=== PATIENT | female | born 1955 | race Caucasian/White ===

== ENCOUNTER → 2020-02-20 09:39 | Outpatient (BNVA) | payer MEDICARE, MEDICAID, SELFPAY | PROVIDERS: PCP Internal Medicine; Referring Provider Internal Medicine; Visit Provider Internal Medicine | DX: J44.9 Chronic obstructive pulmonary disease, unspecified (principal); Z79.899 Other long term (current) drug therapy; R09.02 Hypoxemia; Z87.891 Personal history of nicotine dependence; Z23 Encounter for immunization | CPT/HCPCS: 90471; 90686; 99212 ==

== ENCOUNTER 2020-05-21 | Outpatient (REF) | payer MEDICARE, MEDICAID, SELFPAY | END 2020-05-21 00:01 | disposition home or self-care (01) | LOC: HO.VC | PROVIDERS: Visit Provider Internal Medicine | DX: Z23 Encounter for immunization (principal) | CPT/HCPCS: 0011A ==

== ENCOUNTER 2020-06-17 08:01 | Outpatient (REF) | payer MEDICARE, SELFPAY ==
--- NOTE | ~2020-06-17 | XR_ITS ---
EXAMINATION: XR KNEE, RIGHT CLINICAL INFORMATION: Right knee effusion COMPARISON: None TECHNIQUE: Four views of the right knee. FINDINGS: Bone alignment is normal. No fracture or dislocation is seen. There may be periarticular osteopenia. Joint spaces are normal. There is a large joint effusion. Soft tissues are otherwise normal. XR/XR knee RT 3V IMPRESSION: Large joint effusion.
[2020-06-17 08:50] LABS: Hematocrit 43.6 % (37-47); Mean Corpuscular HGB Conc 32.1 g/dl (31.0-35.0); Mean Corpuscular Hemoglobin 31.4 pg (27.0-33.0); Mean Corpuscular Volume 97.8 fL (80-98); Platelet Count 243 X10*3/uL (160-400); Red Blood Count 4.46 X10*6/uL (4.20-5.50); Red Cell Distribution Width 12.3 % (11.0-16.0); White Blood Count 7.2 X10*3/uL (4.8-10.8)
[2020-06-17 09:21] LABS: Alanine Aminotransferase 15 U/L (0-31); Albumin Level 4.6 g/dL (3.5-5.0); Alkaline Phosphatase 114 U/L (39-117); Anion Gap 12 (12-20); Aspartate Amino Transferase 21 U/L (5-31); Bilirubin Direct 0.2 mg/dL (0.0-0.5); Bilirubin Total 0.5 mg/dL (0.0-1.0); Blood Urea Nitrogen 17 mg/dL (9-16); Calcium 9.3 mg/dL (8.4-10.2); Carbon Dioxide 33 mmol/L (22-29); Chloride 102 mmol/L (96-108); Cholesterol 229 mg/dL; Estimated Glomerular Filt Rate 59; Glucose Random 108 mg/dL (60-115); HDL Cholesterol 94 mg/dL; LDL Cholesterol Calculated 120 mg/dl; Potassium 4.4 mmol/L (3.3-5.1); Sodium 143 mmol/L (135-145); Triglycerides 76 mg/dL
[2020-06-17 09:43] LABS: Thyroid Stimulating Hormone 8.51 uIU/mL (0.32-4.0)
[2020-06-17 09:50] LABS: Folate 9.4 ng/mL (> or = 4.0); Vitamin B12 < 146 pg/mL (200-900)
== END 2020-06-17 08:02 | disposition home or self-care (01) ==
LOC: HO.LAB 08:01
PROVIDERS: PCP Internal Medicine; Visit Provider Internal Medicine
DX: M25.461 Effusion, right knee (principal); M25.462 Effusion, left knee; F19.90 Other psychoactive substance use, unspecified, uncomplicated; E03.9 Hypothyroidism, unspecified; F41.1 Generalized anxiety disorder
CPT/HCPCS: 36415; 73562; 80048; 80061; 80076; 82607; 82746; 84443; 85027

== ENCOUNTER 2020-06-18 | Outpatient (REF) | payer MEDICARE, MEDICAID, SELFPAY | END 2020-06-18 00:01 | disposition home or self-care (01) | LOC: HO.VC | PROVIDERS: Visit Provider Internal Medicine | DX: Z23 Encounter for immunization (principal) | CPT/HCPCS: 0012A ==

== ENCOUNTER → 2020-06-25 09:42 | Outpatient (BNVA) | payer MEDICARE, SELFPAY | PROVIDERS: PCP Internal Medicine; Visit Provider Internal Medicine | DX: J44.9 Chronic obstructive pulmonary disease, unspecified (principal); R09.02 Hypoxemia; Z79.51 Long term (current) use of inhaled steroids; Z87.891 Personal history of nicotine dependence | CPT/HCPCS: 99212 ==

== ENCOUNTER 2020-08-26 16:45 | Emergency (ER) | payer MEDICARE, SELFPAY ==
--- NOTE | ~2020-08-26 | XR_ITS ---
EXAMINATION: XR FOREARM, LEFT CLINICAL INFORMATION: Injury COMPARISON: None TECHNIQUE: AP and lateral views of the left forearm were obtained. FINDINGS: The bones and soft tissues are normal. No fracture. Imaged portions of the elbow and wrist are unremarkable. XR/XR forearm LT 2V IMPRESSION: Normal left forearm.
[2020-08-26 17:03] VITALS: BP 151/77; PULSE 92; RESP 18; TEMP 36.6; O2SAT 98; BMI 29.2
[2020-08-26] MEDS: Diphth,Pertus(ACell),Tet Adult 0.5 ML SYRINGE IM (18:18)
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
== END 2020-08-26 18:49 | disposition home or self-care (01) ==
PROVIDERS: Emergency Provider Internal Medicine; PCP Internal Medicine
DX: S40.812A Abrasion of left upper arm, initial encounter (principal); V18.3XXA Person boarding or alighting a pedal cycle injured in noncollision transport accident, initial encounter; Y93.55 Activity, bike riding; Y92.480 Sidewalk as the place of occurrence of the external cause; Y99.9 Unspecified external cause status
CPT/HCPCS: 73090; 90471; 90715; 99284

== ENCOUNTER → 2020-09-30 09:37 | Outpatient (BNVA) | payer MEDICARE, SELFPAY | PROVIDERS: PCP Internal Medicine; Visit Provider Internal Medicine | DX: J44.9 Chronic obstructive pulmonary disease, unspecified (principal); R09.02 Hypoxemia | CPT/HCPCS: 99212 ==

== ENCOUNTER 2021-01-06 07:43 | Outpatient (REF) | payer MEDICARE, SELFPAY ==
[2021-01-06 08:51] LABS: Hematocrit 43.2 % (37-47); Hemoglobin 13.9 g/dl (12.0-16.0); Mean Corpuscular HGB Conc 32.2 g/dl (31.0-35.0); Mean Corpuscular Volume 96.2 fL (80-98); Mean Platelet Volume 11.8 fL (9.4-12.3); Platelet Count 208 X10*3/uL (160-400); Red Blood Count 4.49 X10*6/uL (4.20-5.50); Red Cell Distribution Width 13.1 % (11.0-16.0); White Blood Count 6.2 X10*3/uL (4.8-10.8)
[2021-01-06 09:05] LABS: Alanine Aminotransferase 16 U/L (0-31); Albumin Level 4.4 g/dL (3.5-5.0); Alkaline Phosphatase 103 U/L (39-117); Anion Gap 11 (12-20); Aspartate Amino Transferase 17 U/L (5-31); Bilirubin Direct 0.2 mg/dL (0.0-0.5); Bilirubin Total 0.5 mg/dL (0.0-1.0); Blood Urea Nitrogen 14 mg/dL (9-16); Calcium 9.1 mg/dL (8.4-10.2); Carbon Dioxide 32 mmol/L (22-29); Chloride 104 mmol/L (96-108); Cholesterol 210 mg/dL; Estimated Glomerular Filt Rate > 60; Glucose Random 94 mg/dL (60-115); HDL Cholesterol 75 mg/dL; LDL Cholesterol Calculated 120 mg/dl; Potassium 4.2 mmol/L (3.3-5.1); Sodium 143 mmol/L (135-145); Total Protein 7.4 g/dL (6.5-8.0); Triglycerides 76 mg/dL
[2021-01-06 10:56] LABS: Appearance Urine CLEAR; Color Urine YELLOW; Glucose Urine UA NEG (NEG); Leukocyte Esterase Urine NEG (NEG); Nitrite Urine NEG (NEG); Specific Gravity - Urine 1.015 (1.005-1.025); Urine Blood NEG (NEG); Urine Ketones NEG (NEG); Urine Protein NEG (NEG-TRACE)
[2021-01-11 13:00] LABS: Vitamin D 25-OH, D2 <4 ng/mL; Vitamin D 25-OH, D3 13 ng/mL; Vitamin D 25-OH, Total 13 ng/mL (30-100)
== END 2021-01-06 07:44 | disposition home or self-care (01) ==
LOC: HO.LAB 07:43
PROVIDERS: PCP Internal Medicine; Visit Provider Internal Medicine
DX: J44.9 Chronic obstructive pulmonary disease, unspecified (principal); R09.02 Hypoxemia; E03.8 Other specified hypothyroidism; F19.90 Other psychoactive substance use, unspecified, uncomplicated
CPT/HCPCS: 36415; 80048; 80061; 80076; 81003; 82306; 84443; 85027; 99212

== ENCOUNTER → 2021-05-07 09:21 | Outpatient (BNVA) | payer MEDICARE, SELFPAY | PROVIDERS: PCP Internal Medicine; Visit Provider Internal Medicine | DX: J44.9 Chronic obstructive pulmonary disease, unspecified (principal); R09.02 Hypoxemia | CPT/HCPCS: 99212 ==

== ENCOUNTER → 2021-05-21 13:00 | Outpatient (BNVA) | payer MEDICARE, SELFPAY | PROVIDERS: PCP Internal Medicine; Visit Provider Internal Medicine | DX: J44.1 Chronic obstructive pulmonary disease with (acute) exacerbation (principal) | CPT/HCPCS: 99212 ==

== ENCOUNTER 2021-08-16 08:22 | Emergency (ER) | payer MEDICARE, SELFPAY ==
--- NOTE | ~2021-08-16 | XR_ITS ---
EXAMINATION: XR CHEST CLINICAL INFORMATION: Dyspnea. COMPARISON: 05/12/2019 chest radiographs. TECHNIQUE: 2 views of the chest were obtained. FINDINGS: The lungs are clear. There are no pleural effusions. The heart and mediastinal structures are unremarkable. Mild thoracolumbar dextro scoliosis is noted. XR/XR chest 2V IMPRESSION: No acute cardiopulmonary process.
[2021-08-16 08:35] VITALS: BP 143/94; PULSE 84; RESP 24; TEMP 36.6; O2SAT 94; BMI 30.1
[2021-08-16 08:51] LABS: MANUAL DIFF FLAG NO
[2021-08-16 08:52] LABS: Basophils Absolute Auto 0.1 X10*3/uL (0.0-0.2); Basophils Percent Auto 0.7 % (0-2); Eosinophils Absolute Auto 0.4 X10*3/uL (0.0-0.4); Eosinophils Percent Auto 4.8 % (0-4); Hemoglobin 13.3 g/dl (12.0-16.0); Imm Gran Abs Auto 0.01 X10*3/uL (0.00-0.03); Imm Gran Pct Auto 0.1 % (0.0-0.4); Lymphocytes Absolute Auto 1.9 X10*3/uL (1.2-4.9); Lymphocytes Percent Auto 25.7 % (20-40); Mean Corpuscular HGB Conc 31.7 g/dl (31.0-35.0); Mean Corpuscular Hemoglobin 30.6 pg (27.0-33.0); Mean Corpuscular Volume 96.8 fL (80.0-98.0); Mean Platelet Volume 11.3 fL (9.4-12.3); Monocytes Absolute Auto 0.4 X10*3/uL (0.1-1.2); Monocytes Percent Auto 5.3 % (2-11); Neutrophils Absolute Auto 4.8 x10*3/uL (2.0-8.3); Neutrophils Percent Auto 63.4 % (45-73); Platelet Count 182 X10*3/uL (160-400); Red Blood Count 4.34 X10*6/uL (4.20-5.50); Red Cell Distribution Width 12.8 % (11.0-16.0); White Blood Count 7.5 X10*3/uL (4.8-10.8)
[2021-08-16 09:08] LABS: Anion Gap 12 (12-20); Blood Urea Nitrogen 20 mg/dL (9-16); Calcium 9.9 mg/dL (8.4-10.2); Carbon Dioxide 30 mmol/L (22-29); Chloride 106 mmol/L (96-108); Creatinine Clr Calc Pharmacy 69.7; Estimated Glomerular Filt Rate > 60; Glucose Random 108 mg/dL (60-115); Potassium 4.5 mmol/L (3.3-5.1); Sodium 143 mmol/L (135-145)
--- NOTE | 2021-08-16 11:47 | ECG_ITS ---
Test Reason : DYSPNEA Blood Pressure : / mmHG Vent. Rate : 082 BPM Atrial Rate : 082 BPM P-R Int : 120 ms QRS Dur : 074 ms QT Int : 392 ms P-R-T Axes : 040 041 030 degrees QTc Int : 457 ms Sinus rhythm with sinus arrhythmia with occasional Premature ventricular complexes Otherwise normal ECG When compared with ECG of 12-MAY-2019 10:47, Premature ventricular complexes are now Present T wave inversion no longer evident in Anterior leads Referred By: Ponce Escalante Electronically Signed By:Uche Stovall
--- NOTE | 2021-08-16 11:50 | ED_ITS ---
HPI - General Adult General Chief complaint: Dyspnea <MERI Candelaria Last Filed: 08/16/21 21:58> Stated complaint: dif breathing <MERI Candelaria Last Filed: 08/16/21 21:58> Time Seen by Provider: 08/16/21 11:41 <MERI Candelaria Last Filed: 08/16/21 21:58> Source: patient <MERI Candelaria Last Filed: 08/16/21 21:58> Mode of arrival: ambulatory <MERI Candelaria Last Filed: 08/16/21 21:58> Limitations: no limitations <MERI Candelaria Last Filed: 08/16/21 21:58> History of Present Illness HPI narrative: 65-year-old female with history of COPD presents to ED for shortness of breath on exertion for 1 week. patient states while walking around the house she had 2 episodes of shortness of breath while walking around the house ( without her oxygen nasal canuli). Patient states using updraft and still having wheezing. Patient denies any leg swelling, calf pain, pleuritic chest pain, or coughing up blood. Patient admits to chest tightness with wheezing and coughing. Patient unsure of any COVID or flu exposure. <MERI Candelaria Last Filed: 08/16/21 21:58> Related Data Home medications: Home Medications Medication Instructions Recorded Confirmed albuterol sulfate 90 mcg/actuation 2 puff PO Q6H PRN 01/14/20 08/16/21 aerosol inhaler buprenorphine 8 mg-naloxone 2 mg 1 film SUBLINGUAL BID 01/14/20 08/16/21 sublingual film umeclidinium 62.5 mcg/actuation 1 inh INHALATION DAILY 02/20/20 08/16/21 blister powder for inhalation (Incruse Ellipta) nicotine (polacrilex) 4 mg gum 4 mg BUCCAL Q2H PRN 08/16/21 08/16/21 Previous Rx's Medication Instructions Recorded thiamine HCl (vitamin B1) 50 mg 100 mg PO DAILY #171 tab 09/17/20 tablet amlodipine 2.5 mg tablet 2.5 mg PO DAILY #90 tab 11/01/20 folic acid 1 mg tablet 1 mg PO DAILY #90 tab 04/30/21 cyanocobalamin (vitamin B-12) 1,000 mcg IM QWEEK #10 ml 05/10/21 1,000 mcg/mL injection solution gabapentin 100 mg capsule 100 mg PO TID #270 cap 05/10/21 cholecalciferol (vitamin D3) 1,250 1,250 mcg PO QWEEK #4 cap 06/29/21 mcg (50,000 unit) capsule levothyroxine 125 mcg capsule 125 mcg PO DAILY #90 cap 06/29/21 fluticasone 250 mcg-salmeterol 50 1 ea PO BID #180 cap 07/01/21 mcg/dose blistr powdr for inhalation (Wixela Inhub) furosemide 20 mg tablet 20 mg PO DAILY #90 tab 07/01/21 citalopram 20 mg tablet 20 mg PO DAILY #60 tab 07/10/21 azithromycin 250 mg tablet See Rx Instructions .ROUTE 08/16/21 .COMPLEX #6 tab prednisone 20 mg tablet 40 mg PO DAILY 5 Days #10 tab 08/16/21 <MERI Candelaria - Last Filed: 08/16/21 21:58> Allergies/adverse reactions: Allergies Allergy/AdvReac Type Severity Reaction Status Date / Time duloxetine Allergy Intermediate upset Verified 07/19/21 16:50 stomach <MERI Candelaria - Last Filed: 08/16/21 21:58> Review of Systems Review of Systems: Chest tightness coughing, and wheezing <MERI Candelaria - Last Filed: 08/16/21 21:58> Yes all other systems are reviewed and are negative <MERI Candelaria - Last Filed: 08/16/21 21:58> [facility] Past Medical History Medical History: Medical History (Updated 08/17/21 @ 00:00 by Tiffanie Goodwin) Acquired hypothyroidism COPD (chronic obstructive pulmonary disease) COPD (chronic obstructive pulmonary disease) COPD exacerbation Generalized anxiety disorder Hypoxemia Hypoxemia Substance use disorder <MERI Candelaria - Last Filed: 08/16/21 21:58> Surgical History: Surgical History History of hip replacement <MERI Candelaria - Last Filed: 08/16/21 21:58> Family History Family History: Family History Father No problems noted. Mother No problems noted. Other Mental health disorder Substance use disorder <MERI Candelaria Last Filed: 08/16/21 21:58> Social History Social History: Social History Housing: House Alcohol intake: never Patient Tobacco Use Status: Former Tobacco user Quit Date: 2016 e-Cigarette/Vaping Use: Never Used Second Hand Smoke Exposure: No Advance Directives: Yes Advance Directives Information Provided: Yes Advance Directives on File: No service: No Current occupational status: retired Cognitive needs: No Hearing needs: Yes (hearing aides) Vision needs: Yes (Glasses) <MERI Candelaria Last Filed: 08/16/21 21:58> Physical Exam ED Vital Signs: Vital Signs - 24 hr 08/16/21 08:35 08/16/21 12:00 08/16/21 13:29 Temperature 97.9 F 97.7 F Pulse Rate 84 78 Respiratory Rate 24 H 14 Blood Pressure 143/94 H 163/91 H Pulse Oximetry 94 99 89 L BMI result Body Mass Index 30.1 <MERI Candelaria Last Filed: 08/16/21 21:58> Const General: cooperative, healthy appearing, comfortable, no acute distress, well developed, alert, awake and Physically active <MERI Candelaria Last Filed: 08/16/21 21:58> Orientation/consciousness: patient oriented x3 <MERI Candelaria Last Filed: 08/16/21 21:58> HENMT Head: Yes normal to inspection, Yes No palpable skull fracture present, Yes normocephalic, Yes atraumatic and No abrasion <MERI Candelaria Last Filed: 08/16/21 21:58> Eyes General: appearance normal, both eyes and all related structures <MERI Candelaria Last Filed: 08/16/21 21:58> Neck Neck: Yes normal visual inspection, Yes full ROM, Yes no lymphadenopathy, Yes no meningeal signs, Yes trachea midline, Yes supple, No anterior neck swelling and No tender <MERI Candelaria Last Filed: 08/16/21 21:58> Chest Chest palpation & inspection: normal inspection of the chest and normal palpation of entire chest wall <MERI Candelaria Tripp Last Filed: 08/16/21 21:58> Resp Effort & Inspection: normal respiratory effort and able to speak in complete sentences <MERI Candelaria Last Filed: 08/16/21 21:58> Auscultation: wheezes expiratory wheezes ( diffuse) <MERI Candelaria Last Filed: 08/16/21 21:58> Cardio Jugular venous distension: no JVD <MERI Candelaria Last Filed: 08/16/21 21:58> Heart sounds: S1 normal heart sound present and S2 normal heart sound present <MERI Candelaria Last Filed: 08/16/21 21:58> GI Inspection: Yes normal to inspection <MERI Candelaria Last Filed: 08/16/21 21:58> Palpation (GI): Soft to palpation, not firm, nontender, no guarding and not rigid <MERI Candelaria Last Filed: 08/16/21 21:58> General: No CVA tenderness and Yes no CVA tenderness <MERI Candelaria Last Filed: 08/16/21 21:58> Back/Spine/Pelvis Back: no CVA tenderness, No CVA tenderness and No back tenderness <MERI Candelaria Last Filed: 08/16/21 21:58> Skin General skin exam: no rashes or lesions noted and elasticity normal <MERI Candelaria Last Filed: 08/16/21 21:58> Neuro General: patient oriented x3, gait normal, no meningeal signs and CN's II-XI intact bilaterally <MERI Candelaria Last Filed: 08/16/21 21:58> Cranial nerves: Yes CN's II-XII intact bilaterally <MERI Candelaria Last Filed: 08/16/21 21:58> Extrem Other: lower extremities negative for swelling, pitting edema, or calf tenderness. <MERI Candelaria Last Filed: 08/16/21 21:58> General: Yes normal to inspection and Yes full ROM <MERI Candelaria Last Filed: 08/16/21 21:58> Psych Appearance: grossly normal, well kempt and not disheveled <MERI Candelaria - Last Filed: 08/16/21 21:58> Course Course Course Narrative: Initial labs and chest x-ray came back normal. Lungs have diffuse wheezing. Will add a cardiac evaluation and give albuterol, Solu-Medrol, and magnesium. <MERI Candelaria - Last Filed: 08/16/21 21:58> Reevaluation(s) Reevaluation #1: patient at rest O2 saturation of 94%. on ambulation with portable oxygen 2 L patient O2 saturation dropped to 89%. Wheezing improved but still present. EKG negative STEMI. First troponin negative. Spoke with hospitalist for possible admission for COPD. Hospitalist will come and evaluate patient. <MERI Candelaria - Last Filed: 08/16/21 21:58> Time: 14:15 <MERI Candelaria - Last Filed: 08/16/21 21:58> Reevaluation #2: patient sitting comfortably in bed and laughing with sister. Patient evaluated by hospitalist Betty High ( who spoke with her attendant Dr. Brooks) who states patient can be discharged with steroids. upon re-evaluation patient states her normal O2 sat on oxygen is 93- 94% at rest, and at times ambulation normal can be 88% on room air. Patient with COPD O2 saturation usually rang between 87-94. Patient informed not to increase oxygen over 2 L this can lead to Knowking of her CO2. Not suspecting PE. Patient denies any pleurisy, leg pain, calf pain, coughing up blood, recent long travel, estrogen hormonal use, recent surgery, recent trauma, or pmh of dVT/PE.. Patient has no risk factors for a PE. ABG was ordered by HOspitalist betty High. ABG was reviewed by myself and Dr. Hussein supervising attending in the ER. He states patient is ABG is typical for COPD patient. Dr. Stringer Hospitalist Attendant made aware of plan. patient discharged with steroids. Patient informed to return to the ED immediately if she has worsening shortness of breath coughing up blood, leg swelling, calf pain, chest pain on inspiration, fever, chills, we akness, dizziness, syncope chest pain, inability speaking full sentences, or any other concerning symptoms. She is educated on signs of myocardial infarction, PE, hypoxia, respiratory failure, and COPD exacerbation. on monitor air O2 saturation 95% on 2 Liters. hospitalist Betty espitia recommends discharging patient with prednisone and azithromycin. <MERI Candelaria - Last Filed: 08/16/21 21:58> Time: 16:46 <MERI Candelaria - Last Filed: 08/16/21 21:58> Medical Decision Making MDM Narrative Medical decision making narrative: COPD <MERI Candelaria - Last Filed: 08/16/21 21:58> Lab Data Result diagrams: : 08/16/21 08:47 08/16/21 08:47 <MERI Candelaria - Last Filed: 08/16/21 21:58> Labs: Lab Results 08/16/21 08/16/21 08/16/21 Range/Units 08:47 08:47 12:12 WBC 7.5 (4.8-10.8) X10*3/uL RBC 4.34 (4.20-5.50) X10*6/uL Hgb 13.3 (12.0-16.0) g/dl Hct 42.0 (37.0-47.0) % MCV 96.8 (80.0-98.0) fL MCH 30.6 (27.0-33.0) pg MCHC 31.7 (31.0-35.0) g/dl RDW 12.8 (11.0-16.0) % Plt Count 182 (160-400) X10*3/uL MPV 11.3 (9.4-12.3) fL Immature Gran % (Auto) 0.1 (0.0-0.4) % Neut % (Auto) 63.4 (45-73) % Lymph % (Auto) 25.7 (20-40) % [place] % (Auto) 5.3 (2-11) % Eos % (Auto) 4.8 H (0-4) % Baso % (Auto) 0.7 (0-2) % Lymph # (Auto) 1.9 (1.2-4.9) X10*3/uL Livingston # (Auto) 0.4 (0.1-1.2) X10*3/uL Eos # (Auto) 0.4 (0.0-0.4) X10*3/uL Baso # (Auto) 0.1 (0.0-0.2) X10*3/uL Abs Immat Gran (auto) 0.01 (0.00-0.03) X10*3/uL Absolute Neuts (auto) 4.8 (2.0-8.3) x10*3/uL Absolute Nucleated RBC 0.000 (0.0-0.012) X10*3/uL Nucleated RBC % (auto) 0.0 (0.0-0.2) /100WBC PT (9.9-13.0) SEC INR (0.9-1.1) APTT (24.1-38.0) SEC O2 Saturation % ABG pH at Pt Temp (7.35-7.45) ABG pCO2 at Pt Temp (32-45) mmHg ABG pO2 at Pt Temp (83-108) mmHg ABG HCO3 (22-26) mmol/L ABG Base Excess (Actual) mmol/L Sodium 143 (135-145) mmol/L Potassium 4.5 (3.3-5.1) mmol/L Chloride 106 (96-108) mmol/L Carbon Dioxide 30 H (22-29) mmol/L Anion Gap 12 (12-20) BUN 20 H (9-16) mg/dL Creatinine 0.78 (0.5-1.4) mg/dL Estim Creat Clear Calc 69.7 Estimated GFR > 60 Random Glucose 108 (60-115) mg/dL Lactic Acid 0.9 (0.5-2.0) mmol/L Calcium 9.9 D (8.4-10.2) mg/dL Troponin I High Sens (<3.5-17.0) ng/L B-Natriuretic Peptide (<100) pg/mL COVID-19 (ADAM) (Negative) COVID-19 Clin Com Influenza Type A (MARLON) (Negative) Influenza Type B (MARLON) (Negative) Influenza A & B Note 08/16/21 08/16/21 08/16/21 Range/Units 12:13 12:14 12:14 WBC (4.8-10.8) X10*3/uL RBC (4.20-5.50) X10*6/uL Hgb (12.0-16.0) g/dl Hct (37.0-47.0) % MCV (80.0-98.0) fL MCH (27.0-33.0) pg MCHC (31.0-35.0) g/dl RDW (11.0-16.0) % Plt Count (160-400) X10*3/uL MPV (9.4-12.3) fL Immature Gran % (Auto) (0.0-0.4) % Neut % (Auto) (45-73) % Lymph % (Auto) (20-40) % Livingston % (Auto) (2-11) % Eos % (Auto) (0-4) % Baso % (Auto) (0-2) % Lymph # (Auto) (1.2-4.9) X10*3/uL Livingston # (Auto) (0.1-1.2) X10*3/uL Eos # (Auto) (0.0-0.4) X10*3/uL Baso # (Auto) (0.0-0.2) X10*3/uL Abs Immat Gran (auto) (0.00-0.03) X10*3/uL Absolute Neuts (auto) (2.0-8.3) x10*3/uL Absolute Nucleated RBC (0.0-0.012) X10*3/uL Nucleated RBC % (auto) (0.0-0.2) /100WBC PT 11.7 (9.9-13.0) SEC INR 1.0 (0.9-1.1) APTT 31.0 (24.1-38.0) SEC O2 Saturation % ABG pH at Pt Temp (7.35-7.45) ABG pCO2 at Pt Temp (32-45) mmHg ABG pO2 at Pt Temp (83-108) mmHg ABG HCO3 (22-26) mmol/L ABG Base Excess (Actual) mmol/L Sodium (135-145) mmol/L Potassium (3.3-5.1) mmol/L Chloride (96-108) mmol/L Carbon Dioxide (22-29) mmol/L Anion Gap (12-20) BUN (9-16) mg/dL Creatinine (0.5-1.4) mg/dL Estim Creat Clear Calc Estimated GFR Random Glucose (60-115) mg/dL Lactic Acid (0.5-2.0) mmol/L Calcium (8.4-10.2) mg/dL Troponin I High Sens 5.0 (<3.5-17.0) ng/L B-Natriuretic Peptide 109 H (<100) pg/mL COVID-19 (ADAM) (Negative) COVID-19 Clin Com Influenza Type A (MARLON) Negative (Negative) Influenza Type B (MARLON) Negative (Negative) Influenza A & B Note See Note 08/16/21 08/16/21 08/16/21 Range/Units 12:14 14:55 15:02 WBC (4.8-10.8) X10*3/uL RBC (4.20-5.50) X10*6/uL Hgb (12.0-16.0) g/dl Hct (37.0-47.0) % MCV (80.0-98.0) fL MCH (27.0-33.0) pg MCHC (31.0-35.0) g/dl RDW (11.0-16.0) % Plt Count (160-400) X10*3/uL MPV (9.4-12.3) fL Immature Gran % (Auto) (0.0-0.4) % Neut % (Auto) (45-73) % Lymph % (Auto) (20-40) % Livingston % (Auto) (2-11) % Eos % (Auto) (0-4) % Baso % (Auto) (0-2) % Lymph # (Auto) (1.2-4.9) X10*3/uL Livingston # (Auto) (0.1-1.2) X10*3/uL Eos # (Auto) (0.0-0.4) X10*3/uL Baso # (Auto) (0.0-0.2) X10*3/uL Abs Immat Gran (auto) (0.00-0.03) X10*3/uL Absolute Neuts (auto) (2.0-8.3) x10*3/uL Absolute Nucleated RBC (0.0-0.012) X10*3/uL Nucleated RBC % (auto) (0.0-0.2) /100WBC PT (9.9-13.0) SEC INR (0.9-1.1) APTT (24.1-38.0) SEC O2 Saturation 88.0 % ABG pH at Pt Temp 7.40 (7.35-7.45) ABG pCO2 at Pt Temp 54 H (32-45) mmHg ABG pO2 at Pt Temp 58 L (83-108) mmHg ABG HCO3 34 H (22-26) mmol/L ABG Base Excess (Actual) 7.7 mmol/L Sodium (135-145) mmol/L Potassium (3.3-5.1) mmol/L Chloride (96-108) mmol/L Carbon Dioxide (22-29) mmol/L Anion Gap (12-20) BUN (9-16) mg/dL Creatinine (0.5-1.4) mg/dL Estim Creat Clear Calc Estimated GFR Random Glucose (60-115) mg/dL Lactic Acid (0.5-2.0) mmol/L Calcium (8.4-10.2) mg/dL Troponin I High Sens 6.2 (<3.5-17.0) ng/L B-Natriuretic Peptide (<100) pg/mL COVID-19 (ADAM) Negative (Negative) COVID-19 Clin Com See Note Influenza Type A (MARLON) (Negative) Influenza Type B (MARLON) (Negative) Influenza A & B Note <MERI Candelaria - Last Filed: 08/16/21 21:58> ECG Data Interpretation: Sinus rhythm. Ventricular rate 82. Pr interval 120. QRS 70. QTC 457. Negative STEMI <MERI Candelaria - Last Filed: 08/16/21 21:58> Discharge Plan Discharge Clinical Impression: COPD (chronic obstructive pulmonary disease) <MERI Candelaria Last Filed: 08/16/21 21:58> Patient Disposition: Home, Self-Care <MERI Candelaria - Last Filed: 08/16/21 21:58> Instructions: COPD (Chronic Obstructive Pulmonary Disease) (ED) <MERI Candelaria Last Filed: 08/16/21 21:58> Additional Instructions: return to the ED for shortness of breath, coughing up blood, chest pain, inability to speak in full sentences, leg swelling, calf pain, chest pain on inspiration, dizziness, weakness, or any other concerning symptoms. recommend using the oxygen at all times. do not walk around without your oxygen. Use nebulizer as needed. You will be discharged with steroids. please follow-up primary care provider. <MERI Candelaria - Last Filed: 08/16/21 21:58> Prescriptions: New prednisone 20 mg tablet 40 mg PO DAILY 5 Days Qty: 10 0RF azithromycin 250 mg tablet See Rx Instructions .ROUTE .COMPLEX Qty: 6 0RF Rx Instructions: For 250 mg dose pack: take 500 mg today (day 1), then 250 mg for 4 days (days 2-5) No Action thiamine HCl (vitamin B1) 50 mg tablet 100 mg PO DAILY Qty: 171 1RF amlodipine 2.5 mg tablet 2.5 mg PO DAILY Qty: 90 0RF folic acid 1 mg tablet 1 mg PO DAILY Qty: 90 1RF cyanocobalamin (vitamin B-12) 1,000 mcg/mL solution 1,000 mcg IM QWEEK Qty: 10 1RF Rx Instructions: next dose 08/27 gabapentin 100 mg capsule 100 mg PO TID Qty: 270 1RF cholecalciferol (vitamin D3) 1,250 mcg (50,000 unit) capsule 1,250 mcg PO QWEEK Qty: 4 3RF levothyroxine 125 mcg capsule 125 mcg PO DAILY Qty: 90 0RF fluticasone propion-salmeterol [Wixela Inhub] 250-50 mcg/dose blister with device 1 ea PO BID Qty: 180 1RF furosemide 20 mg tablet 20 mg PO DAILY Qty: 90 1RF citalopram 20 mg tablet 20 mg PO DAILY Qty: 60 0RF nicotine (polacrilex) 4 mg Gum 4 mg BUCCAL Q2H PRN (Reason: Smoking Cessation) 0RF albuterol sulfate 90 mcg/actuation HFA aerosol inhaler 2 puff PO Q6H PRN (Reason: Shortness Of Breath) 0RF buprenorphine-naloxone 8-2 mg film 1 film sublingual BID 0RF Incruse Ellipta 62.5 mcg/actuation blister with device 1 inh inhalation DAILY 0RF <MERI Candelaria - Last Filed: 08/16/21 21:58> Interventions: ED Discharge Assessment Last Done: 08/16/21 17:15 <MERI Candelaria - Last Filed: 08/16/21 21:58> Discharge Date/Time: 08/16/21 17:16 <MERI Candelaria - Last Filed: 08/16/21 21:58> Print Language: Korean <MERI Candelaria - Last Filed: 08/16/21 21:58>
[2021-08-16 12:00] VITALS: BP 163/91; PULSE 78; RESP 14; RESP 18; TEMP 36.5; O2SAT 98; O2SAT 99
[2021-08-16] MEDS: Albuterol/Iprat 2.5/0.5MG 3 ML AMPUL.NEB INHALE (12:00)
[2021-08-16] MEDS: Magnesium Sulfate/H2O 2 GM/50 ML PIGGYBACK IV (12:18)
[2021-08-16] MEDS: methylPREDNISolone Sod Succ 125 MG/2 ML VIAL IVPUSH (12:18)
[2021-08-16 12:34] LABS: Prothrombin Time 11.7 SEC (9.9-13.0)
[2021-08-16 12:40] LABS: Lactic Acid 0.9 mmol/L (0.5-2.0)
[2021-08-16 12:44] LABS: COVID-19 Test Negative (Negative); IDNOW Serial# 08D9AD1C; Influenza A Negative (Negative); Influenza B2 Negative (Negative)
[2021-08-16 12:49] LABS: B Type Natriuretic Peptide 109 pg/mL (<100)
[2021-08-16 13:29] VITALS: O2SAT 89
[2021-08-16 14:42] VITALS: O2SAT 89
[2021-08-16 15:04] LABS: ABG Base Excess 7.7 mmol/L; ABG HCO3 34 mmol/L (22-26); ABG pCO2 54 mmHg (32-45); ABG pO2 58 mmHg (83-108)
[2021-08-16 15:28] LABS: Troponin-I High Sensitivity 6.2 ng/L (<3.5-17.0)
--- NOTE | 2021-08-16 16:29 | PHA.MEDREC ---
Pharmacy Consult ? Medication Reconciliation Pharmacy has completed the medication reconciliation.
[2021-08-16 17:11] LABS: ABG Refer to POC result
== END 2021-08-16 17:16 | disposition home or self-care (01) ==
PROVIDERS: Nurse Practitioner Acute Care; Physician Assistant; Emergency Provider Emergency Medicine; PCP Internal Medicine
DX: J44.9 Chronic obstructive pulmonary disease, unspecified (principal); R06.02 Shortness of breath; Z20.822 Contact with and (suspected) exposure to COVID-19
CPT/HCPCS: 36415; 71046; 80048; 82803; 83605; 83880; 84484; 85025; 85610; 85730; 87040; 87502; 87635; 93005; 94640; 96365; 96366; 96375; 99284; J2930; J3475

== ENCOUNTER → 2021-08-24 09:31 | Outpatient (BNVA) | payer MEDICARE, SELFPAY | PROVIDERS: PCP Internal Medicine; Visit Provider Internal Medicine | DX: J44.1 Chronic obstructive pulmonary disease with (acute) exacerbation (principal); R09.02 Hypoxemia | CPT/HCPCS: 99212 ==

== ENCOUNTER → 2021-10-01 10:01 | Outpatient (BNVA) | payer OTHER, SELFPAY | PROVIDERS: PCP Internal Medicine; Visit Provider Internal Medicine | DX: J44.9 Chronic obstructive pulmonary disease, unspecified (principal); R09.02 Hypoxemia | CPT/HCPCS: 99212 ==

== ENCOUNTER → 2021-11-26 08:02 | Outpatient (BNVA) | payer OTHER, SELFPAY | PROVIDERS: PCP Internal Medicine; Visit Provider Internal Medicine | DX: J44.9 Chronic obstructive pulmonary disease, unspecified (principal) | CPT/HCPCS: 94618; 99211 ==

== ENCOUNTER 2022-01-01 14:04 | Outpatient (REF) | payer OTHER, SELFPAY ==
--- NOTE | ~2022-01-01 | MM_ITS ---
EXAMINATION: MM SCREENING DIGITAL BREAST TOMOSYNTHESIS, BILATERAL CLINICAL INFORMATION: Screening. Asymptomatic. Remote prior mammography from 2006, purged. The lifetime risk of breast cancer based on the Tyrer-Cuzick Model is 6%. COMPARISON: Targeted right breast ultrasound 08/16/2006. Current exam represents new baseline mammography. TECHNIQUE: Digital breast tomosynthesis is performed in both the craniocaudal and mediolateral oblique views along with computer-aided detection (CAD). Synthesized 2D images are generated from the tomosynthesis. FINDINGS: There are scattered areas of fibroglandular density (ACR BI-RADS breast composition Category b). There are no significant masses, abnormal calcifications, or other abnormalities. The axilla and skin contours are unremarkable. MM/MM tomosynthesis screening BI IMPRESSION: No mammographic evidence of malignancy. ASSESSMENT: BI-RADS 1: Negative RECOMMENDATION: Routine annual mammography screening. This patient's information was entered into a reminder system with a target due date for their next mammogram.
== END 2022-01-01 14:05 | disposition home or self-care (01) ==
LOC: HO.MAMMO 14:04
PROVIDERS: Visit Provider Internal Medicine
DX: Z12.31 Encounter for screening mammogram for malignant neoplasm of breast (principal)
CPT/HCPCS: 77063; 77067

== ENCOUNTER → 2022-01-28 09:34 | Outpatient (BNVA) | payer OTHER, SELFPAY | PROVIDERS: PCP Internal Medicine; Visit Provider Internal Medicine | DX: J96.90 Respiratory failure, unspecified, unspecified whether with hypoxia or hypercapnia (principal); J44.9 Chronic obstructive pulmonary disease, unspecified | CPT/HCPCS: 99212 ==

== ENCOUNTER 2022-04-06 10:35 | Outpatient (REF) | payer OTHER, SELFPAY ==
[2022-04-06 11:40] LABS: Hematocrit 39.6 % (37.0-47.0); Hemoglobin 12.9 g/dl (12.0-16.0); Mean Corpuscular HGB Conc 32.6 g/dl (31.0-35.0); Mean Corpuscular Hemoglobin 31.9 pg (27.0-33.0); Mean Corpuscular Volume 97.8 fL (80.0-98.0); Mean Platelet Volume 10.5 fL (9.4-12.3); Platelet Count 211 X10*3/uL (160-400); Red Blood Count 4.05 X10*6/uL (4.20-5.50); Red Cell Distribution Width 13.9 % (11.0-16.0)
[2022-04-06 14:14] LABS: Estimated Average Glucose 97 mg/dL
[2022-04-06 15:32] LABS: Alanine Aminotransferase 11 U/L (0-31); Albumin Level 4.3 g/dL (3.5-5.0); Alkaline Phosphatase 81 U/L (39-117); Anion Gap 12 (12-20); Aspartate Amino Transferase 21 U/L (5-31); Bilirubin Direct 0.2 mg/dL (0.0-0.5); Bilirubin Total 0.4 mg/dL (0.0-1.0); Blood Urea Nitrogen 20 mg/dL (9-16); Calcium 9.2 mg/dL (8.4-10.2); Carbon Dioxide 39 mmol/L (22-29); Chloride 95 mmol/L (96-108); Cholesterol 249 mg/dL; Estimated Glomerular Filt Rate > 60; Glucose Random 89 mg/dL (60-115); HDL Cholesterol 100 mg/dL; LDL Cholesterol Calculated 128 mg/dl; Potassium 4.4 mmol/L (3.3-5.1); Sodium 142 mmol/L (135-145); Thyroid Stimulating Hormone 30.58 uIU/mL (0.32-4.0); Total Protein 6.9 g/dL (6.5-8.0); Triglycerides 107 mg/dL
== END 2022-04-06 10:36 | disposition home or self-care (01) ==
LOC: HO.LAB 10:35
PROVIDERS: PCP Internal Medicine; Visit Provider Internal Medicine
DX: F41.1 Generalized anxiety disorder (principal); J44.1 Chronic obstructive pulmonary disease with (acute) exacerbation; E03.9 Hypothyroidism, unspecified
CPT/HCPCS: 36415; 80048; 80061; 80076; 83036; 84443; 85027

== ENCOUNTER → 2022-06-28 13:04 | Outpatient (BNVA) | payer OTHER, SELFPAY | PROVIDERS: PCP Internal Medicine; Visit Provider Internal Medicine | DX: J44.9 Chronic obstructive pulmonary disease, unspecified (principal); R09.02 Hypoxemia; R06.89 Other abnormalities of breathing; Z99.81 Dependence on supplemental oxygen | CPT/HCPCS: 99212 ==

== ENCOUNTER → 2022-10-12 10:02 | Outpatient (BNVA) | payer OTHER, SELFPAY | PROVIDERS: PCP Internal Medicine; Visit Provider Internal Medicine | DX: J44.1 Chronic obstructive pulmonary disease with (acute) exacerbation (principal); R09.02 Hypoxemia; Z79.899 Other long term (current) drug therapy; Z99.81 Dependence on supplemental oxygen | CPT/HCPCS: 99212 ==

== ENCOUNTER 2022-10-28 08:49 | Outpatient (AMB) | payer OTHER, SELFPAY ==
--- NOTE | 2022-10-28 08:53 | MHC.PC.OV ---
Vital Signs 10/28/22 08:54 Height 5 ft 3 in Weight 170 lb 4 oz BMI 30.2 BP 110/64 Blood Pressure Location Lt brachial Position Sitting Pulse 89 Pulse Source Pulse Oximeter Pulse Oximetry (%) 94 Oxygen Delivery Method Room Air Intake Visit Reasons: 3mth f/u Intake Note: Patient is here to follow up on COPD,. Cryptographic Vulnerability Analyst Required: No Fruit Worker: Not Required per policy Accompanied by: Self / Same As Patient Allergies duloxetine Allergy (Intermediate, Verified 10/28/22 09:10) upset stomach Medication List - Last Reconciled 10/28/22 by Jadon Orantes MD albuterol sulfate 90 mcg/actuation 2 puffs inhalation Q4-6H PRN 30 days amlodipine 2.5 mg PO DAILY buprenorphine-naloxone 8-2 mg 1 film sublingual BID cholecalciferol (vitamin D3) 1,250 mcg PO QWEEK citalopram 20 mg PO DAILY ferrous sulfate 325 mg PO DAILY 90 days fluticasone propion-salmeterol 250-50 mcg/dose (Wixela Inhub) 1 ea PO BID folic acid 1 mg PO DAILY furosemide 20 mg PO DAILY gabapentin 100 mg PO TID Incruse Ellipta 62.5 mcg/actuation (umeclidinium) 2 inhalations PO DAILY NS ipratropium-albuterol 0.5 mg-3 mg(2.5 mg base)/3 mL 3 mL inhalation Q4-6H PRN levothyroxine 125 mcg PO DAILY levothyroxine (Synthroid) 50 mcg PO DAILY metoprolol succinate ER 25 mg PO DAILY 90 days nicotine (polacrilex) 4 mg buccal Q2H PRN quetiapine 100 mg PO BEDTIME thiamine HCl (vitamin B1) 100 mg (2 x 50 mg) PO DAILY Tobacco use date assessed: 10/28/22 Fall risk assessment: No Falls in past year Last assessed Fall Risk: 10/28/22 Dental Screening Dental Screen Date: 10/28/22 Did you have a dental visit in the last 12 months?: No Did you have a dental problem in the last 6 months where you did not have access to dental care?: No Was dental information given to patient?: Patient has dentist HPI 3mth f/u HPI Details 67-year-old female presents to the office to discuss his chronic medical conditions. She has COPD and is dependent on oxygen. Patient is able to ambulate and do activities of daily living. She drives occasionally and only in the daytime. Able to function and do activities of daily living. Not incontinent to urine. [facility] Medical History Acquired hypothyroidism COPD (chronic obstructive pulmonary disease) COPD (chronic obstructive pulmonary disease) COPD exacerbation Deafness in right ear Generalized anxiety disorder Hypoxemia Hypoxemia Substance use disorder Surgical History History of hip replacement Family History Father No problems noted. Mother No problems noted. Other Mental health disorder Substance use disorder Social History Housing: House Alcohol intake: never Patient Tobacco Use Status: Former Tobacco user Quit Date: 2016 e-Cigarette/Vaping Use: Never Used Second Hand Smoke Exposure: No service: No Current occupational status: retired Cognitive needs: No Hearing needs: Yes (hearing aides) Vision needs: Yes (Glasses) Questionnaire Thrive Questionnaire Date Thrive assessed: 05/13/22 ALLY-7 AMB Questionnaire ALLY-7 Date ALLY - 7 assessed: 05/13/22 Source: Developed by Drs. David García, Jennifer Crouch, Brendan Taylor and colleagues, with an educational corby from [employer]. Physical exam (Primary Care) Vital Signs: Last Vital Signs Pulse 89 10/28/22 08:54 BP 110/64 10/28/22 08:54 Pulse Ox 94 10/28/22 08:54 Oxygen Delivery Method Room Air 10/28/22 08:54 Care Plan Goal for BP management: Blood pressure is in range. Continue current medications BMI result Body Mass Index 30.2 Tobacco/Smoking Status: Tobacco use Status Tobacco use date assessed 10/28/22 10/28/22 09:01 Patient Tobacco Use Status Former Tobacco user 10/28/22 09:01 e-Cigarette/Vaping Use Never Used 10/28/22 09:01 Thrive Assessment: Date of Thrive Assessment Date Thrive assessed 05/13/22 10/28/22 09:01 Advance Care Planning discussion: Exists, not on file Const General: cooperative, healthy appearing and comfortable HENMT Head: Yes normal to inspection and Yes atraumatic Eyes General: appearance normal, both eyes and all related structures Neck Neck: Yes normal visual inspection and Yes full ROM Chest Chest palpation & inspection: normal inspection of the chest Resp Effort & Inspection: normal respiratory effort Auscultation: clear to auscultation bilaterally Cardio Jugular venous distension: no JVD Palpation: normal PMI Rate: regular rate Heart sounds: S1 normal heart sound present and S2 normal heart sound present GI Palpation (GI): Soft to palpation and No hepatosplenomegaly present Extrem General: Yes normal to inspection and Yes full ROM Assessment and Plan Assessment & Plan (1) COPD (chronic obstructive pulmonary disease): Comment: Has advanced chronic obstructive pulmonary disease, For the past many years. It has been very stable since she quit smoking completely . Current medical regimen is as follows : TX: WIXELA 250-50 1 INHALATION B.I.D. INCRUSE ELLIPTA 1 INHALATION DAILY. DUONEB UPDRAFTS Q 6 HOURS P.R.N. Patient needs a new nebulizer for which the prescription has been written. Continues to participate in Pulmonary rehab program. Code(s): J44.9 - Chronic obstructive pulmonary disease, unspecified Qualifiers: COPD type: unspecified COPD Qualified Code(s): J44.9 - Chronic obstructive pulmonary disease, unspecified Plan: Condition is stable. (2) Generalized anxiety disorder: Code(s): F41.1 - Generalized anxiety disorder Plan: Condition is stable. Continue current medications. (3) Acquired hypothyroidism: Code(s): E03.9 - Hypothyroidism, unspecified Plan: Blood work has been requested. Will call with results. Orders: Orders XR DEXA appendicular skeleton Today M81.0 - Age-related osteoporosis without current pathological fracture Basic Metabolic Panel Today E03.9 - Hypothyroidism, unspecified, F41.1 - Generalized anxiety disorder, J44.9 - Chronic obstructive pulmonary disease, unspecified Hemoglobin A1c Today E03.9 - Hypothyroidism, unspecified, F41.1 - Generalized anxiety disorder, J44.9 - Chronic obstructive pulmonary disease, unspecified Lipid Panel Today E03.9 - Hypothyroidism, unspecified, F41.1 - Generalized anxiety disorder, J44.9 - Chronic obstructive pulmonary disease, unspecified Liver Panel Today E03.9 - Hypothyroidism, unspecified, F41.1 - Generalized anxiety disorder, J44.9 - Chronic obstructive pulmonary disease, unspecified Thyroid Stimulating Hormone Today E03.9 - Hypothyroidism, unspecified, F41.1 - Generalized anxiety disorder, J44.9 - Chronic obstructive pulmonary disease, unspecified Microalbumin, Random (w Creat) Today E03.9 - Hypothyroidism, unspecified, F41.1 - Generalized anxiety disorder, J44.9 - Chronic obstructive pulmonary disease, unspecified Complete Blood Count no Diff Today E03.9 - Hypothyroidism, unspecified, F41.1 - Generalized anxiety disorder, J44.9 - Chronic obstructive pulmonary disease, unspecified UA and rflx microscopic Today E03.9 - Hypothyroidism, unspecified, F41.1 - Generalized anxiety disorder, J44.9 - Chronic obstructive pulmonary disease, unspecified Medications: Refilled thiamine HCl (vitamin B1) 100 mg (2 x 50 mg) PO DAILY 180 tabs 1RF Coding Level of Care Code Est Pt Level 4 (73722) Diagnoses COPD (chronic obstructive pulmonary disease) J44.9 COPD type: unspecified COPD Generalized anxiety disorder F41.1 Acquired hypothyroidism E03.9 Additional Codes Vital Signs *Quality* - Advance Care Planning discussion: Exists, not on file ([id number])
[2022-10-28 08:54] VITALS: BP 110/64; PULSE 89; O2SAT 94; BMI 30.2
== END 2022-10-28 09:12 | disposition home or self-care (01) ==
PROVIDERS: Visit Provider Internal Medicine
DX: J44.9 Chronic obstructive pulmonary disease, unspecified (principal); F41.1 Generalized anxiety disorder; E03.9 Hypothyroidism, unspecified; Z71.89 Other specified counseling
CPT/HCPCS: 1124F; 99214

== ENCOUNTER 2022-10-28 09:19 | Outpatient (REF) | payer OTHER, SELFPAY ==
[2022-10-28 11:43] LABS: Hematocrit 38.3 % (37.0-47.0); Hemoglobin 12.4 g/dl (12.0-16.0); Mean Corpuscular HGB Conc 32.4 g/dl (31.0-35.0); Mean Corpuscular Hemoglobin 30.5 pg (27.0-33.0); Mean Corpuscular Volume 94.1 fL (80.0-98.0); Mean Platelet Volume 11.5 fL (9.4-12.3); Platelet Count 187 X10*3/uL (160-400); Red Blood Count 4.07 X10*6/uL (4.20-5.50); Red Cell Distribution Width 12.3 % (11.0-16.0)
[2022-10-28 12:22] LABS: Alanine Aminotransferase 10 U/L (0-31); Albumin Level 3.7 g/dL (3.5-5.0); Alkaline Phosphatase 68 U/L (39-117); Anion Gap 13 (12-20); Aspartate Amino Transferase 18 U/L (5-31); Bilirubin Direct 0.1 mg/dL (0.0-0.5); Bilirubin Total 0.5 mg/dL (0.0-1.0); Blood Urea Nitrogen 12 mg/dL (9-16); Calcium 10.4 mg/dL (8.4-10.2); Carbon Dioxide 30 mmol/L (22-29); Chloride 105 mmol/L (96-108); Cholesterol 194 mg/dL; Estimated Glomerular Filt Rate > 60; Glucose Random 89 mg/dL (60-115); HDL Cholesterol 79 mg/dL; LDL Cholesterol Calculated 103 mg/dl; Potassium 3.8 mmol/L (3.3-5.1); Sodium 144 mmol/L (135-145); Total Protein 6.6 g/dL (6.5-8.0); Triglycerides 64 mg/dL
[2022-10-28 12:22] LABS: Estimated Average Glucose 97 mg/dL
[2022-10-28 12:26] LABS: Thyroid Stimulating Hormone 0.02 uIU/mL (0.32-4.0)
[2022-10-28 13:49] LABS: Appearance Urine Clear; Color Urine Yellow; Glucose Urine UA Negative (Negative); Leukocyte Esterase Urine Small (1+) (Negative); Nitrite Urine Negative (Negative); UMIC TRIGGER UA YES; Urine Blood Negative (Negative); Urine Ketones Negative (Negative); Urine Protein Negative (Neg-Trace)
[2022-10-28 13:51] LABS: Bacteria Urine Trace (None Seen); Hyaline Casts Urine 0-2 /LPF (0-2); RBC Urine 0-2 /HPF (0-2)
[2022-10-28 14:43] LABS: Creatinine Urine 193.37 mg/dL; Microalbum/Creatinine Ratio Ur 4.1 ug/mg cr
== END 2022-10-28 09:20 | disposition home or self-care (01) ==
LOC: HO.LAB 09:19
PROVIDERS: PCP Internal Medicine; Visit Provider Internal Medicine
DX: J44.9 Chronic obstructive pulmonary disease, unspecified (principal); F41.1 Generalized anxiety disorder; E03.9 Hypothyroidism, unspecified; E11.9 Type 2 diabetes mellitus without complications
CPT/HCPCS: 36415; 80048; 80061; 80076; 81001; 82043; 83036; 84443; 85027

== ENCOUNTER 2022-11-16 09:26 | Outpatient (REF) | payer OTHER, SELFPAY ==
--- NOTE | ~2022-11-16 | MM_ITS ---
EXAMINATION: BONE DENSITOMETRY CLINICAL INDICATION: Age-related osteoporosis without current pathological fracture. COMPARISON: This is the patient's baseline examination. TECHNIQUE: Using a [employer] DXA System (software version: 13.1) manufactured by [employer], dual-energy x-ray absorptiometry was performed of the lumbar spine and left forearm radius 33%. The images are of good technical quality. Summary results are attached. FINDINGS: AP SPINE L1-L4: BMD 1.067 g/cm2, Z-score 0.3, T-score -0.9, normal. LEFT FOREARM RADIUS 33%: BMD 0.828 g/cm2, Z-score 1.1, T-score -0.6, normal. IDENTIFIED RISK FACTORS: Early menopause, secondary osteoporosis, rheumatoid arthritis. HISTORY OF FRACTURE: None listed. MEDICATIONS: Vitamin D. MM/XR DEXA appendicular skeleton IMPRESSION: 1. DIAGNOSIS: Normal bone density based on the lowest T-score value of -0.9 in the lumbar spine applying World Health Organization criteria. 2. 10-YEAR FRACTURE RISK PREDICTION, FRAX: Not performed in this patient without a femoral neck BMD measurement. 3. Treatment Recommendations: NOF guidelines recommend consideration for treatment in postmenopausal women and men age 50 and older presenting with the following: -A hip or vertebral (clinical or morphometric) fracture. -T-score less than or equal to -2.5 at the femoral neck or spine after appropriate evaluation to exclude secondary causes. -Low bone mass at the hip or spine and a 10-year fracture probability by FRAX of greater than or equal to 3% for hip fracture or greater than or equal to 20% for major osteoporotic fracture based on the [place] adapted WHO algorithm. 4. Other Recommendations: All treatment decisions require clinical judgment and consideration of individual patient factors, including patient preferences, comorbidities, previous drug use, risk factors not captured in the FRAX model (e.g. frailty, falls, vitamin D deficiency, increased bone turnover, interval significant decline in bone density) and possible under or overestimation of fracture risk by FRAX. FUTURE SCAN RECOMMENDATION: People with diagnosed cases of osteoporosis or at high risk for fracture should have regular bone mineral density tests. For patients eligible for Medicare, routine testing is allowed once every 2 years. The testing frequency can be increased to one year for patients who have rapidly progressing disease, those who are receiving or discontinuing medical therapy to restore bone mass, or have additional risk factors.
== END 2022-11-16 09:27 | disposition home or self-care (01) ==
LOC: HO.MAMMO 09:26
PROVIDERS: Visit Provider Internal Medicine
DX: M81.0 Age-related osteoporosis without current pathological fracture (principal); E28.319 Asymptomatic premature menopause; M06.9 Rheumatoid arthritis, unspecified
CPT/HCPCS: 77081

== ENCOUNTER → 2022-11-16 09:45 | Outpatient (BNV) | payer OTHER, SELFPAY | PROVIDERS: Visit Provider Radiology Diagnostic Radiology | DX: M81.0 Age-related osteoporosis without current pathological fracture (principal) | CPT/HCPCS: 77081 ==

== ENCOUNTER 2022-11-17 09:16 | Outpatient (AMB) | payer OTHER, SELFPAY ==
[2022-11-17 09:35] VITALS: BP 138/66; PULSE 75; O2SAT 91
--- NOTE | 2022-11-17 09:35 | MHC.OFFVIS ---
Intake Vital Signs 11/17/22 09:35 Weight 78.5 kg BP 138/66 Blood Pressure Location Lt brachial Position Sitting Pulse 75 Pulse Source Pulse Oximeter Pulse Oximetry (%) 91 L Oxygen Delivery Method Nasal Cannula Oxygen Flow Rate 2 Intake Visit Reasons: 6 minute walk Allergies duloxetine Allergy (Intermediate, Verified 11/17/22 09:36) upset stomach Medication List - Last Reconciled 11/17/22 by Patsy Sabillon LPN albuterol sulfate 90 mcg/actuation 2 puffs inhalation Q4-6H PRN 30 days amlodipine 2.5 mg PO DAILY buprenorphine-naloxone 8-2 mg 1 film sublingual BID cholecalciferol (vitamin D3) 1,250 mcg PO QWEEK citalopram 20 mg PO DAILY ferrous sulfate 325 mg PO DAILY 90 days fluticasone propion-salmeterol 250-50 mcg/dose (Wixela Inhub) 1 ea PO BID folic acid 1 mg PO DAILY furosemide 20 mg PO DAILY gabapentin 100 mg PO TID Incruse Ellipta 62.5 mcg/actuation (umeclidinium) 2 inhalations PO DAILY NS ipratropium-albuterol 0.5 mg-3 mg(2.5 mg base)/3 mL 3 mL inhalation Q4-6H PRN levothyroxine 125 mcg PO DAILY levothyroxine (Synthroid) 50 mcg PO DAILY metoprolol succinate ER 25 mg PO DAILY 90 days nicotine (polacrilex) 4 mg buccal Q2H PRN quetiapine 100 mg PO BEDTIME thiamine HCl (vitamin B1) 100 mg (2 x 50 mg) PO DAILY PFSH Medical History Acquired hypothyroidism COPD (chronic obstructive pulmonary disease) COPD (chronic obstructive pulmonary disease) COPD exacerbation Deafness in right ear Generalized anxiety disorder Hypoxemia Hypoxemia Substance use disorder Surgical History History of hip replacement Family History Father No problems noted. Mother No problems noted. Other Mental health disorder Substance use disorder Social History Housing: House Alcohol intake: never Patient Tobacco Use Status: Former Tobacco user Quit Date: 2016 e-Cigarette/Vaping Use: Never Used Second Hand Smoke Exposure: No service: No Current occupational status: retired Cognitive needs: No Hearing needs: Yes (hearing aides) Vision needs: Yes (Glasses) Office Procedures 6 Minute Walk Time:: 09:15 SPO2 % at rest: 91 Pulse at rest: 75 SPO2 % during excercise: 86 Pulse during excercise: 89 SPO2 % after excercise: 96 Pulse after excercise: 85 Distance in yards walked: 150 Zeny Score: 3 Performance Observations:: Monica walked on level ground without assistance, she walked on room air for 2 mins before her SPO2 decreased to 88% O2 started at 2 pulsed with ambulation her SPO2 decreased to 86% O2 increased to 3 pulsed and her O2 stayed at 86%. O2 started at 2 lpm continuous and her SPO2 recovered to 96%, she maintained her SPO2 at 96% for the remainder of the walk on 2 lpm continuous flow. 52049 - 6 Minute Walk Assessment & Plan Assessment & Plan (1) COPD (chronic obstructive pulmonary disease): Code(s): J44.9 - Chronic obstructive pulmonary disease, unspecified Orders: Orders AMB 6 minute walk Today J44.9 - Chronic obstructive pulmonary disease, unspecified Coding Level of Care Code Established Pt Est Pt Level 1 (32676) Patient Type Established Diagnoses COPD (chronic obstructive pulmonary disease) J44.9 CPT Codes Coding ([id number]) Comment NURSE VISIT ONLY
[2022-11-17 09:40] VITALS: PULSE 75; O2SAT 91
== END 2022-11-17 09:47 | disposition home or self-care (01) ==
PROVIDERS: PCP Internal Medicine; Visit Provider Internal Medicine
DX: J44.9 Chronic obstructive pulmonary disease, unspecified (principal)
CPT/HCPCS: 94618

== ENCOUNTER → 2022-11-17 09:16 | Outpatient (BNVA) | payer OTHER, SELFPAY | PROVIDERS: PCP Internal Medicine; Visit Provider Internal Medicine | DX: J44.9 Chronic obstructive pulmonary disease, unspecified (principal) | CPT/HCPCS: 94618; 99211 ==

== ENCOUNTER 2022-11-23 08:22 | Outpatient (AMB) | payer OTHER, SELFPAY ==
[2022-11-23 08:41] VITALS: BP 128/66; PULSE 89; O2SAT 91
--- NOTE | 2022-11-23 08:41 | MHC.OFFVIS ---
Intake Vital Signs 11/23/22 08:41 Weight 78.5 kg BP 128/66 Blood Pressure Location Lt brachial Position Sitting Pulse 89 Pulse Oximetry (%) 91 L Oxygen Delivery Method Nasal Cannula Oxygen Flow Rate 3 Intake Visit Reasons: pulse walk for smaller tanks Allergies duloxetine Allergy (Intermediate, Verified 11/23/22 08:45) upset stomach Medication List - Last Reconciled 11/23/22 by Patsy Sabillon LPN albuterol sulfate 90 mcg/actuation 2 puffs inhalation Q4-6H PRN 30 days amlodipine 2.5 mg PO DAILY buprenorphine-naloxone 8-2 mg 1 film sublingual BID cholecalciferol (vitamin D3) 1,250 mcg PO QWEEK citalopram 20 mg PO DAILY ferrous sulfate 325 mg PO DAILY 90 days fluticasone propion-salmeterol 250-50 mcg/dose (Wixela Inhub) 1 ea PO BID folic acid 1 mg PO DAILY furosemide 20 mg PO DAILY gabapentin 100 mg PO TID Incruse Ellipta 62.5 mcg/actuation (umeclidinium) 2 inhalations PO DAILY NS ipratropium-albuterol 0.5 mg-3 mg(2.5 mg base)/3 mL 3 mL inhalation Q4-6H PRN levothyroxine 125 mcg PO DAILY levothyroxine (Synthroid) 50 mcg PO DAILY metoprolol succinate ER 25 mg PO DAILY 90 days nicotine (polacrilex) 4 mg buccal Q2H PRN quetiapine 100 mg PO BEDTIME thiamine HCl (vitamin B1) 100 mg (2 x 50 mg) PO DAILY PFSH Medical History Acquired hypothyroidism COPD (chronic obstructive pulmonary disease) COPD (chronic obstructive pulmonary disease) COPD exacerbation Deafness in right ear Generalized anxiety disorder Hypoxemia Hypoxemia Substance use disorder Surgical History History of hip replacement Family History Father No problems noted. Mother No problems noted. Other Mental health disorder Substance use disorder Social History Housing: House Alcohol intake: never Patient Tobacco Use Status: Former Tobacco user Quit Date: 2016 e-Cigarette/Vaping Use: Never Used Second Hand Smoke Exposure: No service: No Current occupational status: retired Cognitive needs: No Hearing needs: Yes (hearing aides) Vision needs: Yes (Glasses) Office Procedures 6 Minute Walk Time:: 08:30 SPO2 % at rest: 90 (on room air) Pulse at rest: 89 SPO2 % during excercise: 88 Pulse during excercise: 107 SPO2 % after excercise: 92 Pulse after excercise: 99 Distance in yards walked: 200 Zeny Score: 2 Performance Observations:: Monica walked on level ground without assistance, she walked on room air for 2 mins. before her SPO2 decreased to 88% pulsed O2 started at 2 and her SPO2 recovered to 92%, she walked for 2 mins before her SPO2 decreased to 88%, pulsed O2 increased to 3 her SPO2 was stable on setting 3 with her SPO2 at 92-93% with ambulation. 45275 - 6 Minute Walk Assessment & Plan Assessment & Plan (1) COPD (chronic obstructive pulmonary disease): Code(s): J44.9 - Chronic obstructive pulmonary disease, unspecified Orders: Orders AMB 6 minute walk Today J44.9 - Chronic obstructive pulmonary disease, unspecified Coding Level of Care Code Established Pt Est Pt Level 1 (05104) Patient Type Established Diagnoses COPD (chronic obstructive pulmonary disease) J44.9 CPT Codes Coding ([id number]) Comment NURSE VISIT ONLY
[2022-11-23 08:52] VITALS: PULSE 89; O2SAT 90
== END 2022-11-23 09:16 | disposition home or self-care (01) ==
PROVIDERS: PCP Internal Medicine; Visit Provider Internal Medicine
DX: J44.9 Chronic obstructive pulmonary disease, unspecified (principal)
CPT/HCPCS: 94618

== ENCOUNTER → 2022-11-23 08:22 | Outpatient (BNVA) | payer OTHER, SELFPAY | PROVIDERS: PCP Internal Medicine; Visit Provider Internal Medicine | DX: J44.9 Chronic obstructive pulmonary disease, unspecified (principal) | CPT/HCPCS: 94618; 99211 ==

== ENCOUNTER 2022-11-30 06:09 | Outpatient (REF) | payer OTHER, SELFPAY ==
[2022-11-30 08:39] LABS: Thyroid Stimulating Hormone 24.47 uIU/mL (0.32-4.0)
== END 2022-11-30 06:10 | disposition home or self-care (01) ==
LOC: HO.LAB 06:09
PROVIDERS: PCP Internal Medicine; Visit Provider Internal Medicine
DX: E03.9 Hypothyroidism, unspecified (principal)
CPT/HCPCS: 36415; 84443

== ENCOUNTER 2022-12-09 08:02 | Outpatient (AMB) | payer OTHER, SELFPAY ==
[2022-12-09 08:22] VITALS: BP 132/78; PULSE 81; O2SAT 83; BMI 31.2
--- NOTE | 2022-12-09 08:22 | MHC.PC.OV ---
Vital Signs 12/09/22 08:22 Height 5 ft 3 in Weight 176 lb BMI 31.2 BP 132/78 Blood Pressure Location Lt brachial Position Sitting Pulse 81 Pulse Source Pulse Oximeter Pulse Oximetry (%) 83 L Oxygen Delivery Method Nasal Cannula Intake Visit Reasons: abnormal results Allergies duloxetine Allergy (Intermediate, Verified 12/09/22 09:09) upset stomach Medication List - Last Reconciled 12/09/22 by Jadon Orantes MD albuterol sulfate 90 mcg/actuation 2 puffs inhalation Q4-6H PRN 30 days amlodipine 2.5 mg PO DAILY buprenorphine-naloxone 8-2 mg 1 film sublingual BID cholecalciferol (vitamin D3) 1,250 mcg PO QWEEK citalopram 20 mg PO DAILY ferrous sulfate 325 mg PO DAILY 90 days fluticasone propion-salmeterol 250-50 mcg/dose (Wixela Inhub) 1 ea PO BID folic acid 1 mg PO DAILY furosemide 20 mg PO DAILY gabapentin 100 mg PO TID Incruse Ellipta 62.5 mcg/actuation (umeclidinium) 2 inhalations PO DAILY NS ipratropium-albuterol 0.5 mg-3 mg(2.5 mg base)/3 mL 3 mL inhalation Q4-6H PRN levothyroxine 125 mcg PO DAILY levothyroxine (Synthroid) 50 mcg PO DAILY metoprolol succinate ER 25 mg PO DAILY 90 days nicotine (polacrilex) 4 mg buccal Q2H PRN quetiapine 100 mg PO BEDTIME thiamine HCl (vitamin B1) 100 mg (2 x 50 mg) PO DAILY Tobacco use date assessed: 10/28/22 Fall risk assessment: No Falls in past year Last assessed Fall Risk: 12/09/22 Dental Screening Dental Screen Date: 12/09/22 Did you have a dental visit in the last 12 months?: No Did you have a dental problem in the last 6 months where you did not have access to dental care?: No Was dental information given to patient?: No HPI abnormal results HPI Details 67-year-old female presents to the office to discuss her abnormal labs. Patient has been complaining of fatigue and tiredness. She has not been taking her iron medications as she has misplaced the same. She has been taking 175 mcg of Synthroid. She has 1 pill of 125 an on other pill for 50 mcg. Patient reports she has been compliant with all her medications. [facility] Medical History Acquired hypothyroidism COPD (chronic obstructive pulmonary disease) COPD (chronic obstructive pulmonary disease) COPD exacerbation Deafness in right ear Generalized anxiety disorder Hypoxemia Hypoxemia Substance use disorder Surgical History History of hip replacement Family History Father No problems noted. Mother No problems noted. Other Mental health disorder Substance use disorder Social History Housing: House Alcohol intake: never Patient Tobacco Use Status: Former Tobacco user Quit Date: 2016 Tobacco use type: Cigarette e-Cigarette/Vaping Use: Never Used Second Hand Smoke Exposure: No service: No Current occupational status: retired Cognitive needs: No Hearing needs: Yes (hearing aides) Vision needs: Yes (Glasses) Questionnaire PHQ-9 Over the last 2 weeks, how often have you been bothered by any of the following problems? 1. Little interest or pleasure in doing things: not at all 2. Feeling down, depressed, or hopeless: not at all 3. Trouble falling or staying asleep, or sleeping too much: not at all 4. Feeling tired or having little energy: not at all 5. Poor appetite or overeating: not at all 6. Feeling bad about yourself - or that you are a failure or have let yourself or your family down: not at all 7. Trouble concentrating on things, such as reading the newspaper or watching television: not at all 8. Moving or speaking so slowly that other people could have noticed. Or the opposite - being so fidgety or restless that you have been moving around a lot more than usual: not at all 9. Thoughts that you would be better off or of hurting yourself in some way: not at all Total score: 0 Depression Screening Interpretation: Negative 12887 - PHQ-9 Billing: Yes Source: Developed by Drs. David García, Jennifer Crouch, Brendan Taylor and colleagues, with an educational corby from [employer]. Thrive Questionnaire Date Thrive assessed: 05/13/22 AUDIT C Alcohol Use Questionnaire (AUDIT-C) 1. How often do you have a drink containing alcohol?: Never 3. How often do you have six or more drinks on one occasion?: Never Total Score: 0 ALLY-7 AMB Questionnaire ALLY-7 Date ALLY - 7 assessed: 05/13/22 Source: Developed by Drs. David García, Brendan Danielle and colleagues, with an educational corby from [employer]. Physical exam (Primary Care) Vital Signs: Last Vital Signs Pulse 81 12/09/22 08:22 BP 132/78 12/09/22 08:22 Pulse Ox 83 L 12/09/22 08:22 Oxygen Delivery Method Nasal Cannula 12/09/22 08:22 BMI result Body Mass Index 31.2 Tobacco/Smoking Status: Tobacco use Status Tobacco use date assessed 10/28/22 12/09/22 08:27 Patient Tobacco Use Status Former Tobacco user 12/09/22 08:27 Tobacco use type Cigarette 12/09/22 08:27 e-Cigarette/Vaping Use Never Used 12/09/22 08:27 PHQ-9: PHQ-9 Score PHQ-9: Total score 0 12/09/22 08:27 Depression Screening Interpretation: Negative Thrive Assessment: Date of Thrive Assessment Date Thrive assessed 05/13/22 12/09/22 08:27 Const General: cooperative, healthy appearing and comfortable [facility] Head: Yes normal to inspection and Yes atraumatic Eyes General: appearance normal, both eyes and all related structures Neck Neck: Yes normal visual inspection and Yes full ROM Chest Chest palpation & inspection: normal inspection of the chest and crepitus Resp Effort & Inspection: normal respiratory effort Auscultation: clear to auscultation bilaterally Cardio Jugular venous distension: no JVD Palpation: normal PMI Rate: regular rate Heart sounds: S1 normal heart sound present and S2 normal heart sound present GI Palpation (GI): Soft to palpation and No hepatosplenomegaly present Extrem General: Yes normal to inspection and Yes full ROM Assessment and Plan Assessment & Plan (1) Acquired hypothyroidism: Code(s): E03.9 - Hypothyroidism, unspecified Plan: Synthroid dosage has been increased to 200 mcg a day. TSH to be repeated in 6 weeks. Restart the iron. Patient verbally understanding. Coding Level of Care Code Est Pt Level 4 (64514) Diagnoses Acquired hypothyroidism E03.9
== END 2022-12-09 09:07 | disposition home or self-care (01) ==
PROVIDERS: PCP Internal Medicine; Visit Provider Internal Medicine
DX: E03.9 Hypothyroidism, unspecified (principal)
CPT/HCPCS: 99214

== ENCOUNTER 2023-01-11 05:56 | Outpatient (REF) | payer OTHER, SELFPAY ==
[2023-01-11 08:20] LABS: Thyroid Stimulating Hormone 0.08 uIU/mL (0.32-4.0)
== END 2023-01-11 05:57 | disposition home or self-care (01) ==
LOC: HO.LAB 05:56
PROVIDERS: PCP Internal Medicine; Visit Provider Internal Medicine
DX: E03.9 Hypothyroidism, unspecified (principal)
CPT/HCPCS: 36415; 84443

== ENCOUNTER 2023-01-13 08:50 | Outpatient (AMB) | payer OTHER, SELFPAY ==
[2023-01-13 09:14] VITALS: BP 124/68; PULSE 77; O2SAT 94; BMI 30.3
--- NOTE | 2023-01-13 09:14 | MHC.OFFVIS ---
Intake Vital Signs 01/13/23 09:14 Height 5 ft 3 in Weight 170 lb 13.732 oz BMI 30.3 BP 124/68 Blood Pressure Location Lt brachial Position Sitting Pulse 77 Pulse Source Pulse Oximeter Pulse Oximetry (%) 94 Oxygen Delivery Method Nasal Cannula Oxygen Flow Rate 3 Intake Visit Reasons: copd Intake Note: pt is here for follow up and states she is coughing with production and wheeze, phelgm is very thick and stick/yellow/green. for about a week. End User Consultant Required: No Allergies duloxetine Allergy (Intermediate, Verified 01/13/23 09:20) upset stomach Medication List - Last Reconciled 01/13/23 by Leticia Ferrell MD albuterol sulfate 90 mcg/actuation (Ventolin HFA) 2 puffs inhalation Q4-6H PRN amlodipine 2.5 mg PO DAILY buprenorphine-naloxone 8-2 mg 1 film sublingual BID cholecalciferol (vitamin D3) 1,250 mcg PO QWEEK citalopram 20 mg PO DAILY ferrous sulfate 325 mg PO DAILY 90 days fluticasone propion-salmeterol 250-50 mcg/dose (Wixela Inhub) 1 ea PO BID folic acid 1 mg PO DAILY furosemide 20 mg PO DAILY gabapentin 100 mg PO TID Incruse Ellipta 62.5 mcg/actuation (umeclidinium) 2 inhalations PO DAILY NS ipratropium-albuterol 0.5 mg-3 mg(2.5 mg base)/3 mL 3 mL inhalation Q4-6H PRN levothyroxine 200 mcg PO DAILY metoprolol succinate ER 25 mg PO DAILY 90 days nicotine (polacrilex) 4 mg buccal Q2H PRN quetiapine 100 mg PO BEDTIME thiamine HCl (vitamin B1) 100 mg (2 x 50 mg) PO DAILY Do you need a note to return to daycare/school/sports/work: No HPI copd HPI Details Monica is 67 years old female a case of advanced chronic obstructive pulmonary disease who is on oxygen, , maximum medical treatment and also in ongoing rehab program. Since last week she is feeling more congested coughing up yellowish phlegm, difficult to expectorates. But has had no fever or chills. I think this coincides with the change in the weather and starting of heating system in the house. She is still continuing her rehab program. [facility] Medical History Deafness in right ear COPD exacerbation Substance use disorder Acquired hypothyroidism Generalized anxiety disorder Hypoxemia COPD (chronic obstructive pulmonary disease) Hypoxemia COPD (chronic obstructive pulmonary disease) Surgical History History of hip replacement Family History Father No problems noted. Mother No problems noted. Other Mental health disorder Substance use disorder Social History Housing: House Alcohol intake: never Patient Tobacco Use Status: Former Tobacco user Quit Date: 2016 Tobacco use type: Cigarette e-Cigarette/Vaping Use: Never Used Second Hand Smoke Exposure: No service: No Current occupational status: retired Cognitive needs: No Hearing needs: Yes (hearing aides) Vision needs: Yes (Glasses) Review of Systems Const All systems reviewed & are unremarkable except as noted in HPI and below Eyes Reports no additional complaints ENT Reports no additional complaints Card Denies chest pain, Denies irregular heart rhythm and Denies leg edema Resp Reports as per HPI GI Reports no additional complaints Reports no additional complaints Musc Reports back pain (mild ) and Reports muscle weakness (General weakness) Skin/Breast Reports system reviewed and no additional complaints, except as documented Neuro Reports no additional complaints Psych Reports no additional complaints Endo Reports no additional complaints Physical Exam Vital Signs: Last Vital Signs Pulse 77 01/13/23 09:14 BP 124/68 01/13/23 09:14 Pulse Ox 94 01/13/23 09:14 Oxygen Delivery Method Nasal Cannula 01/13/23 09:14 Oxygen Flow Rate 3 01/13/23 09:14 BMI result Body Mass Index 30.3 Const General: comfortable, no acute distress, alert and awake Orientation/consciousness: patient oriented x3 HEENT Head: Yes normal to inspection General nose exam: No nasal polyps present and No nasal discharge present Face and sinus: Yes sinuses nontender Mouth: oropharynx normal Throat: Yes posterior oropharynx normal Eyes General: appearance normal, both eyes and all related structures Neck Neck: Yes normal visual inspection, Yes no lymphadenopathy, Yes trachea midline and Yes no JVD Thyroid: Thyroid normal Chest Chest palpation & inspection: normal inspection of the chest, normal palpation of entire chest wall and no tenderness Resp Other: Percussion note hyper-resonant, breath sounds are distant with prolonged expiratory phase. SHE DOES HAVE SCATTERED EXPIRATORY WHEEZES ON BOTH SIDES. Cardio Palpation: normal PMI Rate: regular rate Rhythm: regular rhythm Heart sounds: no gallops and no murmurs GI Palpation (GI): Soft to palpation, nontender, No hepatosplenomegaly present and no masses Auscultation: normal bowel sounds Back/Spine/Pelvis Thoracic/Lumbar Spine: thoracic and lumbar spine normal to inspection and thoraco-lumbar ROM limited Skin General skin exam: no rashes or lesions noted Neuro General: patient oriented x3 and no focal motor deficits Cranial nerves: Yes CN's II-XII intact bilaterally Extrem General: Yes normal to inspection, Yes no clubbing, cyanosis or edema and Yes no calf tenderness Psych Appearance: grossly normal and well kempt Speech and movement: Normal speech and movement present Assessment & Plan Assessment & Plan (1) COPD (chronic obstructive pulmonary disease): Comment: Continue treatment as before. Continue rehab program. Code(s): J44.9 - Chronic obstructive pulmonary disease, unspecified (2) COPD exacerbation: Comment: I think she does have an acute bronchitis at this time, causing mild exacerbation of COPD [place] : Advised to continue using Wixela 250-50 1 inhalation b.i.d.. Incruse Ellipta 1 inhalation daily. ProAir 2 puffs Q 4-6 hours p.r.n. when outdoors. Also may use the nebulizer with albuterol plus ipratropium solution( DuoNeb ) Q 4-6 hours p.r.n.( Three times a day ) Advised to start humidification in the house. A course of doxycycline 100 b.i.d. for 1 week. Code(s): J44.1 - Chronic obstructive pulmonary disease with (acute) exacerbation (3) Hypoxemia: Comment: SHE DOES HAVE HYPOXEMIA AND MILD HYPERCAPNIA , DUE TO ADVANCED COPD. IT IS WELL TREATED WITH OXYGEN 2 L/MINUTES . WILL CONTINUE THE SAME. ALSO ADVISED TO DO PURSED LIP BREATHING EXERCISES FREQUENTLY. Code(s): R09.02 - Hypoxemia Medications: New doxycycline hyclate 100 mg PO BID 14 tabs 0RF bronchitis 7 days Coding Level of Care Code Est Pt Level 3 (04835) Diagnoses COPD (chronic obstructive pulmonary disease) J44.9 COPD exacerbation J44.1 Hypoxemia R09.02
== END 2023-01-13 09:33 | disposition home or self-care (01) ==
PROVIDERS: PCP Internal Medicine; Visit Provider Internal Medicine
DX: J44.9 Chronic obstructive pulmonary disease, unspecified (principal); J44.1 Chronic obstructive pulmonary disease with (acute) exacerbation; R09.02 Hypoxemia
CPT/HCPCS: 99213

== ENCOUNTER → 2023-01-13 08:50 | Outpatient (BNVA) | payer OTHER, SELFPAY | PROVIDERS: PCP Internal Medicine; Visit Provider Internal Medicine | DX: J44.1 Chronic obstructive pulmonary disease with (acute) exacerbation (principal); R09.02 Hypoxemia | CPT/HCPCS: 99212 ==

== ENCOUNTER 2023-03-17 08:22 | Outpatient (AMB) | payer OTHER, SELFPAY ==
[2023-03-17 08:49] VITALS: BP 130/78; PULSE 95; O2SAT 96; BMI 29.5
--- NOTE | 2023-03-17 08:49 | MHC.OFFVIS ---
Intake Vital Signs 03/17/23 08:49 Height 5 ft 3 in Weight 166 lb 7.184 oz BMI 29.5 BP 130/78 Blood Pressure Location Lt brachial Position Sitting Pulse 95 Pulse Source Pulse Oximeter Pulse Oximetry (%) 96 Oxygen Delivery Method Nasal Cannula Oxygen Flow Rate 2 Intake Visit Reasons: copd Intake Note: pt is here for follow up and states she has been having a cough with thick phelgm and causing her to have her increased shortness of breath, very dry mouth. 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 Allergies duloxetine Allergy (Intermediate, Verified 03/17/23 08:59) upset stomach Medication List - Last Reconciled 03/17/23 by Leticia Ferrell MD albuterol sulfate 90 mcg/actuation (Ventolin HFA) 2 puffs inhalation Q4-6H PRN amlodipine 2.5 mg PO DAILY buprenorphine-naloxone 8-2 mg 1 film sublingual BID cholecalciferol (vitamin D3) 1,250 mcg PO QWEEK citalopram 20 mg PO DAILY ferrous sulfate 325 mg PO DAILY 90 days fluticasone propion-salmeterol 250-50 mcg/dose (Wixela Inhub) 1 ea PO BID folic acid 1 mg PO DAILY furosemide 20 mg PO DAILY gabapentin 100 mg PO TID Incruse Ellipta 62.5 mcg/actuation (umeclidinium) 2 inhalations PO DAILY NS ipratropium-albuterol 0.5 mg-3 mg(2.5 mg base)/3 mL 3 mL inhalation Q4-6H PRN levothyroxine 200 mcg PO DAILY metoprolol succinate ER 25 mg PO DAILY 90 days nicotine (polacrilex) 4 mg buccal Q2H PRN quetiapine 100 mg PO BEDTIME thiamine HCl (vitamin B1) 100 mg (2 x 50 mg) PO DAILY Do you need a note to return to daycare/school/sports/work: No HPI copd HPI Details This 67 years old very pleasant female with longstanding history of advanced chronic obstructive pulmonary disease, Comes in for her routine follow-up visit. She claims that she has been sick for the last 2 weeks with increased cough lot of mucus and increased shortness of breath. This started. With the change in weather She has not been attending the rehab program for the last 2 weeks. However she denies any fever or chills. [facility] Medical History Deafness in right ear COPD exacerbation Substance use disorder Acquired hypothyroidism Generalized anxiety disorder Hypoxemia COPD (chronic obstructive pulmonary disease) Hypoxemia COPD (chronic obstructive pulmonary disease) Surgical History History of hip replacement Family History Father No problems noted. Mother No problems noted. Other Mental health disorder Substance use disorder Social History Housing: House Alcohol intake: never Patient Tobacco Use Status: Former Tobacco user Quit Date: 2016 Tobacco use type: Cigarette e-Cigarette/Vaping Use: Never Used Second Hand Smoke Exposure: No service: No Current occupational status: retired Cognitive needs: No Hearing needs: Yes (hearing aides) Vision needs: Yes (Glasses) Review of Systems Const All systems reviewed & are unremarkable except as noted in HPI and below Eyes Reports no additional complaints ENT Reports no additional complaints Card Denies chest pain, Denies irregular heart rhythm and Denies leg edema Resp Reports as per HPI GI Reports no additional complaints Reports no additional complaints Musc Reports back pain (mild ) and Reports muscle weakness (General weakness) Skin/Breast Reports system reviewed and no additional complaints, except as documented Neuro Reports no additional complaints Psych Reports no additional complaints Endo Reports no additional complaints Physical Exam Vital Signs: Last Vital Signs Pulse 95 03/17/23 08:49 BP 130/78 03/17/23 08:49 Pulse Ox 96 03/17/23 08:49 Oxygen Delivery Method Nasal Cannula 03/17/23 08:49 Oxygen Flow Rate 2 03/17/23 08:49 BMI result Body Mass Index 29.5 Const General: comfortable, no acute distress, alert and awake Orientation/consciousness: patient oriented x3 HEENT Head: Yes normal to inspection General nose exam: No nasal polyps present and No nasal discharge present Face and sinus: Yes sinuses nontender Mouth: oropharynx normal Throat: Yes posterior oropharynx normal Eyes General: appearance normal, both eyes and all related structures Neck Neck: Yes normal visual inspection, Yes no lymphadenopathy, Yes trachea midline and Yes no JVD Thyroid: Thyroid normal Chest Chest palpation & inspection: normal inspection of the chest, normal palpation of entire chest wall and no tenderness Resp Other: Percussion note hyper-resonant, breath sounds are distant with prolonged expiratory phase. SHE DOES HAVE SCATTERED EXPIRATORY WHEEZES ON BOTH SIDES. Cardio Palpation: normal PMI Rate: regular rate Rhythm: regular rhythm Heart sounds: no gallops and no murmurs GI Palpation (GI): Soft to palpation, nontender, No hepatosplenomegaly present and no masses Auscultation: normal bowel sounds Back/Spine/Pelvis Thoracic/Lumbar Spine: thoracic and lumbar spine normal to inspection and thoraco-lumbar ROM limited Skin General skin exam: no rashes or lesions noted Neuro General: patient oriented x3 and no focal motor deficits Cranial nerves: Yes CN's II-XII intact bilaterally Extrem General: Yes normal to inspection, Yes no clubbing, cyanosis or edema and Yes no calf tenderness Psych Appearance: grossly normal and well kempt Speech and movement: Normal speech and movement present Assessment & Plan Assessment & Plan (1) COPD (chronic obstructive pulmonary disease): Comment: She has long-standing diagnosis of COPD. At present she has mild acute exacerbation, may have low-grade respiratory infection Code(s): J44.9 - Chronic obstructive pulmonary disease, unspecified Plan: Continue treatment as before. Prednisone 20 mg a day for 5 days. Z-Arie. Advised to have humidifier in the house running all the times. Plenty of fluids. Resume going to pulmonary rehab program from next week (2) Hypoxemia: Comment: SHE DOES HAVE HYPOXEMIA AND MILD HYPERCAPNIA , DUE TO ADVANCED COPD. IT IS WELL TREATED WITH OXYGEN 2 L/MINUTES . WILL CONTINUE THE SAME. ALSO ADVISED TO DO PURSED LIP BREATHING EXERCISES FREQUENTLY. Code(s): R09.02 - Hypoxemia Plan: as above Coding Level of Care Code Est Pt Level 3 (60208) Diagnoses COPD (chronic obstructive pulmonary disease) J44.9 Hypoxemia R09.02
== END 2023-03-17 09:09 | disposition home or self-care (01) ==
PROVIDERS: PCP Internal Medicine; Visit Provider Internal Medicine
DX: J44.9 Chronic obstructive pulmonary disease, unspecified (principal); R09.02 Hypoxemia
CPT/HCPCS: 99213

== ENCOUNTER → 2023-03-17 08:22 | Outpatient (BNVA) | payer OTHER, SELFPAY | PROVIDERS: PCP Internal Medicine; Visit Provider Internal Medicine | DX: J44.9 Chronic obstructive pulmonary disease, unspecified (principal); R09.02 Hypoxemia | CPT/HCPCS: 99212 ==

== ENCOUNTER 2023-04-21 06:05 | Outpatient (REF) | payer OTHER, SELFPAY | END 2023-04-21 06:06 | disposition home or self-care (01) | LOC: HO.LAB 06:05 | PROVIDERS: Absent Provider Internal Medicine; PCP Internal Medicine; Visit Provider Internal Medicine | DX: E03.9 Hypothyroidism, unspecified (principal); J44.9 Chronic obstructive pulmonary disease, unspecified; F41.1 Generalized anxiety disorder | CPT/HCPCS: 36415; 81001; 84443 ==

== ENCOUNTER 2023-04-28 08:24 | Outpatient (AMB) | payer OTHER, SELFPAY ==
--- NOTE | 2023-04-28 08:48 | A.OFFPC_ITS ---
Vital Signs 04/28/23 08:51 Height 5 ft 3 in Weight 169 lb 2 oz BMI 30.0 BP 112/70 Blood Pressure Location Lt brachial Position Sitting Pulse 73 Pulse Source Pulse Oximeter Pulse Oximetry (%) 95 Oxygen Delivery Method Room Air Intake Visit Reasons: 6 month f/u Intake Note: Patient is here to follow up on COPD, Hypothyroidism. Requesting for referral for hearing and speech for hearing aides. 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 Required: No Painter Decorator: Not Required per policy Accompanied by: Self / Same As Patient Allergies duloxetine Allergy (Intermediate, Verified 04/28/23 10:26) upset stomach Medication List - Last Reconciled 04/28/23 by Jadon Orantes MD albuterol sulfate 90 mcg/actuation (Ventolin HFA) 2 puffs inhalation Q4-6H PRN amlodipine 2.5 mg PO DAILY buprenorphine-naloxone 8-2 mg 1 film sublingual BID cholecalciferol (vitamin D3) 1,250 mcg PO QWEEK citalopram 20 mg PO DAILY ferrous sulfate 325 mg PO DAILY 90 days fluticasone propion-salmeterol 250-50 mcg/dose (Wixela Inhub) 1 ea PO BID folic acid 1 mg PO DAILY furosemide 20 mg PO DAILY gabapentin 100 mg PO TID Incruse Ellipta 62.5 mcg/actuation (umeclidinium) 2 inhalations PO DAILY NS ipratropium-albuterol 0.5 mg-3 mg(2.5 mg base)/3 mL 3 mL inhalation Q4-6H PRN levothyroxine 150 mcg PO DAILY 90 days metoprolol succinate ER 25 mg PO DAILY 90 days nicotine (polacrilex) 4 mg buccal Q2H PRN quetiapine 100 mg PO BEDTIME thiamine HCl (vitamin B1) 100 mg (2 x 50 mg) PO DAILY Tobacco use date assessed: 04/28/23 Fall risk assessment: No Falls in past year Last assessed Fall Risk: 04/28/23 Dental Screening Dental Screen Date: 04/28/23 Did you have a dental visit in the last 12 months?: No Did you have a dental problem in the last 6 months where you did not have access to dental care?: No Was dental information given to patient?: No (dentutres) HPI 6 month f/u HPI Details 67-year-old female presents to the offic e to discuss her medical condition. Recent blood work shows a thyroid continues to be suppressed. Patient reports that she is taking 175 mcg a day of Synthroid. This is in contrary to our re cord that states patient is on 150 mcg. Patient has been taking it every day, 1st thing in the morning on an empty stomach. She is feeling fine and has no complaints to offer. Patient has also noticed decreased hearing and would like a audiology referral. [facility] Medical History Deafness in right ear COPD exacerbation Substance use disorder Acquired hypothyroidism Generalized anxiety disorder Hypoxemia COPD (chronic obstructive pulmonary disease) Hypoxemia COPD (chronic obstructive pulmonary disease) Surgical History History of hip replacement Family History Father No problems noted. Mother No problems noted. Other Mental health disorder Substance use disorder Social History Housing: House Alcohol intake: never Patient Tobacco Use Status: Former Tobacco user Quit Date: 2016 Tobacco use type: Cigarette e-Cigarette/Vaping Use: Never Used Second Hand Smoke Exposure: No service: No Current occupational status: retired Cognitive needs: No Hearing needs: Yes (hearing aides) Vision needs: Yes (Glasses) Questionnaire PHQ-9 Over the last 2 weeks, how often have you been bothered by any of the following problems? 1. Little interest or pleasure in doing things: not at all 2. Feeling down, depressed, or hopeless: not at all 3. Trouble falling or staying asleep, or sleeping too much: not at all 4. Feeling tired or having little energy: not at all 5. Poor appetite or overeating: not at all 6. Feeling bad about yourself - or that you are a failure or have let yourself or your family down: not at all 7. Trouble concentrating on things, such as reading the newspaper or watching television: not at all 8. Moving or speaking so slowly that other people could have noticed. Or the opposite - being so fidgety or restless that you have been moving around a lot more than usual: not at all 9. Thoughts that you would be better off or of hurting yourself in some way: not at all Total score: 0 Depression Screening Interpretation: Negative Depression Screening Done: Yes Source: Developed by Drs. David García, Jennifer Crouch, Brendan Taylor and colleagues, with an educational corby from [employer]. Thrive Questionnaire Date Thrive assessed: 04/28/23 I am a: Patient What is your living situation today?: I have a steady place to live Within the past 12 months, did the food you bought not last and you didn't have the money to get more?: Never true Within the past 12 months, did you worry whether your food would run out before you got money to buy more?: Never true Do you have trouble paying for medicines?: No Do you have trouble getting transportation to medical appointments?: No Do you have trouble paying your heating and electricity bill?: No Do you have trouble taking care of your child, family member or friend?: No Do you have trouble with day-to-day activities such as bathing, preparing meals, shopping, managing finances, etc.?: No Are you currently unemployed and looking for a job?: No Are you interested in more education?: No Currently or been in a relationship where the following occur: no concerns reported AUDIT C Alcohol Use Questionnaire (AUDIT-C) 1. How often do you have a drink containing alcohol?: Never Total Score: 0 ALLY-7 AMB Questionnaire ALLY-7 Date ALLY - 7 assessed: 04/28/23 Feeling nervous, anxious, or on edge: 0 = Not at all Not being able to stop or control worryin = Not at all Worrying too much about different things: 0 = Not at all Trouble relaxin = Not at all Being so restless that it is hard to sit still: 0 = Not at all Becoming easily annoyed or irritable: 0 = Not at all Feeling afraid as if something awful might happen: 0 = Not at all Total ALLY-7 score (0-4 normal; 5-9 mild; 10-14 moderate; 15-21 severe): 0 Source: Developed by Jennifer Saxena Kurt Kroenke and colleagues, with an educational corby from [employer]. Physical exam (Primary Care) Vital Signs: Last Vital Signs Pulse 73 04/28/23 08:51 BP 112/70 04/28/23 08:51 Pulse Ox 95 04/28/23 08:51 Oxygen Delivery Method Room Air 04/28/23 08:51 BMI result Body Mass Index 30.0 Tobacco/Smoking Status: Tobacco use Status Tobacco use date assessed 04/28/23 04/28/23 09:25 Patient Tobacco Use Status Former Tobacco user 04/28/23 09:25 Tobacco use type Cigarette 04/28/23 09:25 e-Cigarette/Vaping Use Never Used 04/28/23 09:25 PHQ-9: PHQ-9 Score PHQ-9: Total score 0 04/28/23 09:25 Depression Screening Interpretation: Negative Thrive Assessment: Date of Thrive Assessment Date Thrive assessed 04/28/23 04/28/23 09:25 Currently or been in a relationship where the following occur: no concerns reported Const General: cooperative and healthy appearing Nutritional Appearance: well nourished Orientation/consciousness: patient oriented x3 Limitations: no limitations HENMT Head: Yes normal to inspection Eyes General: appearance normal, both eyes and all related structures Neck Neck: Yes normal visual inspection Chest Chest palpation & inspection: normal palpation of entire chest wall Resp Effort & Inspection: normal respiratory effort Neuro General: patient oriented x3 Assessment and Plan Assessment & Plan (1) Acquired hypothyroidism: Code(s): E03.9 - Hypothyroidism, unspecified Plan: Synthroid has been reduced to 150 mcg. Verified from the pharmacy that patient was taking on 175 mcg. TSH to be checked in 6 weeks. Audiology appointment made. Medications: Refilled furosemide 20 mg PO DAILY 90 tabs 1RF levothyroxine 150 mcg PO DAILY 90 days 90 tabs 0RF Coding Level of Care Code Est Pt Level 4 (16856) Diagnoses Acquired hypothyroidism E03.9
[2023-04-28 08:51] VITALS: BP 112/70; PULSE 73; O2SAT 95
== END 2023-04-28 10:26 | disposition home or self-care (01) ==
PROVIDERS: PCP Internal Medicine; Visit Provider Internal Medicine
DX: E03.9 Hypothyroidism, unspecified (principal)
CPT/HCPCS: 99214

== ENCOUNTER 2023-05-31 09:33 | Outpatient (AMB) | payer OTHER, SELFPAY ==
--- NOTE | 2023-05-31 09:34 | MHC.OFFVIS ---
Intake Vital Signs 05/31/23 09:34 Height 5 ft 3 in Intake Visit Reasons: Sick visit Intake Note: pt is on the phone not feeling well, coughing no production, sore throat, wheezing. for a 3 days. Blackener Required: No Allergies duloxetine Allergy (Intermediate, Verified 05/31/23 09:42) upset stomach Do you need a note to return to daycare/school/sports/work: No HPI Sick visit HPI Details 67 years old very pleasant female who is a known case of advanced chronic obstructive pulmonary disease with chronic respiratory failure. Requested tele visit because she could not come out on the . She has history of nasal congestion and sore throat for the last 3-4 days. She was feeling warm and chilly, has not checked her temperature. Denies chest pain but does have increased shortness of breath. She has cough mostly dry but after long spell of cough she expectorates yellowish phlegm. Generally feeling weak and tired. [facility] Medical History Deafness in right ear COPD exacerbation Substance use disorder Acquired hypothyroidism Generalized anxiety disorder Hypoxemia COPD (chronic obstructive pulmonary disease) Hypoxemia COPD (chronic obstructive pulmonary disease) Surgical History History of hip replacement Family History Father No problems noted. Mother No problems noted. Other Mental health disorder Substance use disorder Social History Housing: House Alcohol intake: never Patient Tobacco Use Status: Former Tobacco user Quit Date: 2016 Tobacco use type: Cigarette e-Cigarette/Vaping Use: Never Used Second Hand Smoke Exposure: No service: No Current occupational status: retired Cognitive needs: No Hearing needs: Yes (hearing aides) Vision needs: Yes (Glasses) Review of Systems Const All systems reviewed & are unremarkable except as noted in HPI and below Eyes Reports no additional complaints ENT Reports no additional complaints Card Denies chest pain, Denies irregular heart rhythm and Denies leg edema Resp Reports as per HPI GI Reports no additional complaints Reports no additional complaints Musc Reports back pain (mild ) and Reports muscle weakness (General weakness) Skin/Breast Reports system reviewed and no additional complaints, except as documented Neuro Reports no additional complaints Psych Reports no additional complaints Endo Reports no additional complaints Physical Exam TELE-VISIT , NO EXAM . Assessment & Plan Assessment & Plan (1) COPD exacerbation: Comment: 67 YEARS OLD FEMALE A KNOWN CASE OF ADVANCED CHRONIC OBSTRUCTIVE PULMONARY DISEASE WITH CHRONIC RESPIRATORY FAILURE SHE IS PRONE TO HAVE FREQUENT ACUTE EXACERBATIONS DUE TO ACUTE VIRAL/BACTERIAL RESPIRATORY INFECTIONS. CURRENTLY SEEMS TO HAVE AN ACUTE VIRAL RESPIRATORY INFECTION AND SUFFERING FROM AN ACUTE EXACERBATION. Code(s): J44.1 - Chronic obstructive pulmonary disease with (acute) exacerbation Plan: Advised to continue using Wixela 250-50 1 inhalation b.i.d.. Incruse Ellipta 1 inhalation daily. ProAir 2 puffs Q 4-6 hours p.r.n. when outdoors. Also may use the nebulizer with albuterol plus ipratropium solution( DuoNeb ) Q 4-6 hours p.r.n.( Three times a day ) Prednisone 20 mg b.i.d. for 1 week Z-Arie 1 course Use Robitussin 2 tsp t.i.d. for cough. Continue to use O2 2 L/minute Call, into days about the progress if not better than I would like to see her in the office. Medications: New prednisone 20 mg PO BID 14 tabs 0RF copd excerbation 7 days doxycycline hyclate 100 mg PO BID 14 tabs 0RF ac. Bronchitis 1 week Telehealth Telehealth Location of provider rendering services: practice address Location of patient: address on file Patient Identification confirmed using: Name, : Yes Telehealth method: voice only Patient verbally consented to treatment: Yes Patient verbally consented to billing insurance company: Yes Patient informed of any privacy concerns related to visit: Yes Coding Level of Care Code Tele Est Pt Level 3 (79759) Diagnoses COPD exacerbation J44.1
== END 2023-05-31 09:51 | disposition home or self-care (01) ==
LOC: HO.HPS 09:33
PROVIDERS: PCP Internal Medicine; Visit Provider Internal Medicine
DX: J44.1 Chronic obstructive pulmonary disease with (acute) exacerbation (principal)
CPT/HCPCS: 99442

== ENCOUNTER → 2023-05-31 09:33 | Outpatient (BNVA) | payer OTHER, SELFPAY | PROVIDERS: PCP Internal Medicine; Visit Provider Internal Medicine ==

== ENCOUNTER 2023-06-21 09:03 | Outpatient (AMB) | payer OTHER, SELFPAY ==
--- NOTE | 2023-06-21 09:14 | MHC.OFFVIS ---
Intake Vital Signs 06/21/23 09:18 Height 5 ft 3 in Weight 164 lb BMI 29.0 BP 124/66 Blood Pressure Location Lt brachial Position Sitting Respiration 16 Pulse 86 Pulse Source Pulse Oximeter Pulse Oximetry (%) 95 Oxygen Delivery Method Room Air Intake Visit Reasons: COPD follow-up Allergies duloxetine Allergy (Intermediate, Verified 06/21/23 09:16) upset stomach Medication List - Last Reconciled 06/21/23 by Leticia Ferrell MD albuterol sulfate 90 mcg/actuation (Ventolin HFA) 2 puffs inhalation Q4-6H PRN amlodipine 2.5 mg PO DAILY buprenorphine-naloxone 8-2 mg 1 film sublingual BID cholecalciferol (vitamin D3) 1,250 mcg PO QWEEK citalopram 20 mg PO DAILY doxycycline hyclate 100 mg PO BID 1 week ferrous sulfate 325 mg PO DAILY 90 days fluticasone propion-salmeterol 250-50 mcg/dose (Wixela Inhub) 1 ea PO BID folic acid 1 mg PO DAILY furosemide 20 mg PO DAILY gabapentin 100 mg PO TID Incruse Ellipta 62.5 mcg/actuation (umeclidinium) 2 inhalations PO DAILY NS ipratropium-albuterol 0.5 mg-3 mg(2.5 mg base)/3 mL 3 mL inhalation Q4-6H PRN levothyroxine 150 mcg PO DAILY 90 days metoprolol succinate ER 25 mg PO DAILY 90 days nicotine (polacrilex) 4 mg buccal Q2H PRN prednisone 20 mg PO BID 7 days quetiapine 100 mg PO BEDTIME thiamine HCl (vitamin B1) 100 mg (2 x 50 mg) PO DAILY Do you need a note to return to daycare/school/sports/work: No HPI COPD follow-up HPI Details Monica was treated for an acute exacerbation to 3 weeks ago, and now she has recovered back. To her baseline She has her usual shortness of breath on walking around or climbing stairs. She also has mild intermittent cough which is nonproductive. She has not gone for pulmonary rehab in the last 3 weeks and now she will start that again. She is doing well with all her medications, and O2 around the clock. [facility] Medical History Deafness in right ear COPD exacerbation Substance use disorder Acquired hypothyroidism Generalized anxiety disorder Hypoxemia COPD (chronic obstructive pulmonary disease) Hypoxemia COPD (chronic obstructive pulmonary disease) Surgical History History of hip replacement Family History Father No problems noted. Mother No problems noted. Other Mental health disorder Substance use disorder Social History Housing: House Alcohol intake: never Patient Tobacco Use Status: Former Tobacco user Quit Date: 2016 Tobacco use type: Cigarette e-Cigarette/Vaping Use: Never Used Second Hand Smoke Exposure: No service: No Current occupational status: retired Cognitive needs: No Hearing needs: Yes (hearing aides) Vision needs: Yes (Glasses) Review of Systems Const All systems reviewed & are unremarkable except as noted in HPI and below Eyes Reports no additional complaints ENT Reports no additional complaints Card Denies chest pain, Denies irregular heart rhythm and Denies leg edema Resp Reports as per HPI GI Reports no additional complaints Reports no additional complaints Musc Reports back pain (mild ) and Reports muscle weakness (General weakness) Skin/Breast Reports system reviewed and no additional complaints, except as documented Neuro Reports no additional complaints Psych Reports no additional complaints Endo Reports no additional complaints Physical Exam Const General: comfortable, no acute distress, alert and awake Orientation/consciousness: patient oriented x3 HEENT Head: Yes normal to inspection General nose exam: No nasal polyps present and No nasal discharge present Face and sinus: Yes sinuses nontender Mouth: oropharynx normal Throat: Yes posterior oropharynx normal Eyes General: appearance normal, both eyes and all related structures Neck Neck: Yes normal visual inspection, Yes no lymphadenopathy, Yes trachea midline and Yes no JVD Thyroid: Thyroid normal Chest Chest palpation & inspection: normal inspection of the chest, normal palpation of entire chest wall and no tenderness Resp Other: Percussion note hyper-resonant, breath sounds are distant with prolonged expiratory phase. TODAY NO WHEEZES OR CREPITATIONS ARE HEARD. Cardio Palpation: normal PMI Rate: regular rate Rhythm: regular rhythm Heart sounds: no gallops and no murmurs GI Palpation (GI): Soft to palpation, nontender, No hepatosplenomegaly present and no masses Auscultation: normal bowel sounds Back/Spine/Pelvis Thoracic/Lumbar Spine: thoracic and lumbar spine normal to inspection and thoraco-lumbar ROM limited Skin General skin exam: no rashes or lesions noted Neuro General: patient oriented x3 and no focal motor deficits Cranial nerves: Yes CN's II-XII intact bilaterally Extrem General: Yes normal to inspection, Yes no clubbing, cyanosis or edema and Yes no calf tenderness Psych Appearance: grossly normal and well kempt Speech and movement: Normal speech and movement present Assessment & Plan Assessment & Plan (1) COPD (chronic obstructive pulmonary disease): Comment: She has long-standing diagnosis of COPD. She has recovered from her recent acute exacerbation and is back to baseline. Code(s): J44.9 - Chronic obstructive pulmonary disease, unspecified Plan: Continue the regular regimen which includes Wixela 250-51 inhalation b.i.d., Incruse Ellipta 1 inhalation daily, DuoNeb updrafts Q 4-6 hours p.r.n. Or albuterol HFA 2 puffs Q 4-6 hours p.r.n. when outdoors. (2) Hypoxemia: Comment: SHE DOES HAVE HYPOXEMIA AND MILD HYPERCAPNIA , DUE TO ADVANCED COPD. IT IS WELL TREATED WITH OXYGEN 2 L/MINUTES . Code(s): R09.02 - Hypoxemia Plan: WILL CONTINUE THE SAME. ALSO ADVISED TO DO PURSED LIP BREATHING EXERCISES FREQUENTLY. Coding Level of Care Code Est Pt Level 3 (14474) Diagnoses COPD (chronic obstructive pulmonary disease) J44.9 Hypoxemia R09.02
[2023-06-21 09:18] VITALS: BP 124/66; PULSE 86; RESP 16; O2SAT 95; BMI 29.0
== END 2023-06-21 09:27 | disposition home or self-care (01) ==
PROVIDERS: PCP Internal Medicine; Visit Provider Internal Medicine
DX: J44.9 Chronic obstructive pulmonary disease, unspecified (principal); R09.02 Hypoxemia
CPT/HCPCS: 99213

== ENCOUNTER → 2023-06-21 09:03 | Outpatient (BNVA) | payer OTHER, SELFPAY | PROVIDERS: PCP Internal Medicine; Visit Provider Internal Medicine | DX: J44.9 Chronic obstructive pulmonary disease, unspecified (principal); R09.02 Hypoxemia | CPT/HCPCS: 99212 ==

== ENCOUNTER 2023-08-23 08:48 | Outpatient (AMB) | payer OTHER, SELFPAY ==
--- NOTE | 2023-08-23 08:55 | MHC.PC.OV ---
Vital Signs 08/23/23 08:56 Height 5 ft 3 in Weight 165 lb BMI 29.2 BP 100/54 L Blood Pressure Location Lt brachial Position Sitting Pulse 68 Pulse Source Pulse Oximeter Pulse Oximetry (%) 96 Oxygen Delivery Method Room Air Intake Visit Reasons: Follow Up Intake Note: Patient is here to follow up on COPD, ALLY, Hypothyroidism. Application Assistant Required: No Internet Sales Representative: Not Required per policy Accompanied by: Self / Same As Patient Allergies duloxetine Allergy (Intermediate, Verified 08/24/23 06:27) upset stomach Medication List - Last Reconciled 08/24/23 by Jadon Orantes MD albuterol sulfate 90 mcg/actuation (Ventolin HFA) 2 puffs inhalation Q4-6H PRN amlodipine 2.5 mg PO DAILY buprenorphine-naloxone 8-2 mg 1 film sublingual BID cholecalciferol (vitamin D3) 1,250 mcg PO QWEEK citalopram 20 mg PO DAILY doxycycline hyclate 100 mg PO BID 1 week ferrous sulfate 325 mg PO DAILY 90 days fluticasone propion-salmeterol 250-50 mcg/dose (Wixela Inhub) 1 ea PO BID folic acid 1 mg PO DAILY furosemide 20 mg PO DAILY gabapentin 100 mg PO TID Incruse Ellipta 62.5 mcg/actuation (umeclidinium) 2 inhalations PO DAILY NS ipratropium-albuterol 0.5 mg-3 mg(2.5 mg base)/3 mL 3 mL inhalation Q4-6H PRN levothyroxine 150 mcg PO DAILY 90 days metoprolol succinate ER 25 mg PO DAILY 90 days nicotine (polacrilex) 4 mg buccal Q2H PRN prednisone 20 mg PO BID 5 days quetiapine 100 mg PO BEDTIME thiamine HCl (vitamin B1) 100 mg (2 x 50 mg) PO DAILY Tobacco use date assessed: 08/23/23 Fall risk assessment: No Falls in past year Last assessed Fall Risk: 08/23/23 Dental Screening Dental Screen Date: 04/28/23 HPI Follow Up HPI Details 67 yr old female presents to the office to discuss her chronic medical conditions. Since last OV, she has lowered her thyroid dosage. Has not gotten blood work done. Requesting medications for sleep. Does not like trazodone. Gives her a 'hangover' feeling. Using portable o2 device all the time. Able to drive and do all her ADL's. Compliant with all medications. [facility] Medical History Deafness in right ear COPD exacerbation Substance use disorder Acquired hypothyroidism Generalized anxiety disorder Hypoxemia COPD (chronic obstructive pulmonary disease) Hypoxemia COPD (chronic obstructive pulmonary disease) Surgical History History of hip replacement Family History Father No problems noted. Mother No problems noted. Other Mental health disorder Substance use disorder Social History Housing: House Alcohol intake: never Patient Tobacco Use Status: Former Tobacco user Quit Date: 2016 Tobacco use type: Cigarette e-Cigarette/Vaping Use: Never Used Second Hand Smoke Exposure: No service: No Current occupational status: retired Cognitive needs: No Hearing needs: Yes (hearing aides) Vision needs: Yes (Glasses) Questionnaire PHQ-9 Over the last 2 weeks, how often have you been bothered by any of the following problems? 1. Little interest or pleasure in doing things: not at all 2. Feeling down, depressed, or hopeless: nearly every day 3. Trouble falling or staying asleep, or sleeping too much: nearly every day 4. Feeling tired or having little energy: nearly every day 5. Poor appetite or overeating: not at all 6. Feeling bad about yourself - or that you are a failure or have let yourself or your family down: not at all 7. Trouble concentrating on things, such as reading the newspaper or watching television: not at all 8. Moving or speaking so slowly that other people could have noticed. Or the opposite - being so fidgety or restless that you have been moving around a lot more than usual: not at all 9. Thoughts that you would be better off or of hurting yourself in some way: not at all Total score: 9 Depression Screening Interpretation: Positive Depression Screening Done: Yes Source: Developed by Drs. David García, Jennifer Crouch, Brendan Taylor and colleagues, with an educational corby from [employer]. Thrive Questionnaire Date Thrive assessed: 04/28/23 ALLY-7 AMB Questionnaire ALLY-7 Date ALLY - 7 assessed: 08/23/23 Feeling nervous, anxious, or on edge: 2 = More than half the days Not being able to stop or control worryin = Not at all Worrying too much about different things: 0 = Not at all Trouble relaxin = Not at all Being so restless that it is hard to sit still: 1 = Several days Becoming easily annoyed or irritable: 2 = More than half the days Feeling afraid as if something awful might happen: 0 = Not at all Total ALLY-7 score (0-4 normal; 5-9 mild; 10-14 moderate; 15-21 severe): 5 Source: Developed by Drs. David García, Jennifer Crouch, Brendan Taylor and colleagues, with an educational corby from [employer]. Physical exam (Primary Care) Vital Signs: Last Vital Signs Pulse 68 08/23/23 08:56 BP 100/54 L 08/23/23 08:56 Pulse Ox 96 08/23/23 08:56 Oxygen Delivery Method Room Air 08/23/23 08:56 BMI result Body Mass Index 29.2 Tobacco/Smoking Status: Tobacco use Status Tobacco use date assessed 08/23/23 08/23/23 09:08 Patient Tobacco Use Status Former Tobacco user 08/23/23 09:08 Tobacco use type Cigarette 08/23/23 09:08 e-Cigarette/Vaping Use Never Used 08/23/23 09:08 PHQ-9: PHQ-9 Score PHQ-9: Total score 9 08/23/23 09:08 Depression Screening Interpretation: Positive Thrive Assessment: Date of Thrive Assessment Date Thrive assessed 04/28/23 08/23/23 09:08 Const General: cooperative and healthy appearing Nutritional Appearance: well nourished Orientation/consciousness: patient oriented x3 Limitations: no limitations HENMT Head: Yes normal to inspection Eyes General: appearance normal, both eyes and all related structures Neck Neck: Yes normal visual inspection Chest Chest palpation & inspection: normal palpation of entire chest wall Resp Effort & Inspection: normal respiratory effort Neuro General: patient oriented x3 Assessment and Plan Assessment & Plan (1) Acquired hypothyroidism: Code(s): E03.9 - Hypothyroidism, unspecified Plan: TSH has been ordered. Will call and adjust thyroid medications accordingly. Medication for anxiety and insomnia called in. Orders: Orders Thyroid Stimulating Hormone Today E03.9 - Hypothyroidism, unspecified Medications: Refilled furosemide 20 mg PO DAILY 90 tabs 1RF Coding Level of Care Code Est Pt Level 3 (08084) Diagnoses Acquired hypothyroidism E03.9
[2023-08-23 08:56] VITALS: BP 100/54; PULSE 68; O2SAT 96; BMI 29.2
== END 2023-08-23 10:58 | disposition home or self-care (01) ==
PROVIDERS: PCP Internal Medicine; Visit Provider Internal Medicine
DX: E03.9 Hypothyroidism, unspecified (principal)
CPT/HCPCS: 99213

== ENCOUNTER 2023-09-01 05:59 | Outpatient (REF) | payer OTHER, SELFPAY ==
[2023-09-01 08:35] LABS: Thyroid Stimulating Hormone 0.17 uIU/mL (0.32-4.0)
== END 2023-09-01 06:00 | disposition home or self-care (01) ==
LOC: HO.LAB 05:59
PROVIDERS: PCP Internal Medicine; Visit Provider Internal Medicine
DX: E03.9 Hypothyroidism, unspecified (principal)
CPT/HCPCS: 36415; 84443

== ENCOUNTER 2023-09-08 08:42 | Outpatient (AMB) | payer OTHER, SELFPAY ==
[2023-09-08 08:43] VITALS: BP 124/61; PULSE 84; BMI 29.4
--- NOTE | 2023-09-08 08:43 | MHC.OFFVIS ---
Vital Signs 09/08/23 08:43 Height 5 ft 3 in Weight 166 lb BMI 29.4 BP 124/61 Blood Pressure Location Rt brachial Position Sitting Pulse 84 Intake Visit Reasons: SCC of skin, scalp and neck excision Bx Intake Note: This patient presents for an assessment for squamous cell carcinoma of skin, scalp and neck excision Bx. Pt c/o; reports occasional bleeding, Hx basal cell CA. Costume Draper Required: No Accompanied by: Self / Same As Patient Allergies duloxetine Allergy (Intermediate, Verified 09/08/23 08:51) upset stomach Medication List - Last Reconciled 09/08/23 by Amadeo Brandt MD albuterol sulfate 90 mcg/actuation (Ventolin HFA) 2 puffs inhalation Q4-6H PRN amlodipine 2.5 mg PO DAILY buprenorphine-naloxone 8-2 mg 1 film sublingual BID cholecalciferol (vitamin D3) 1,250 mcg PO QWEEK citalopram 20 mg PO DAILY citalopram 20 mg PO DAILY doxycycline hyclate 100 mg PO BID 1 week ferrous sulfate 325 mg PO DAILY 90 days fluticasone propion-salmeterol 250-50 mcg/dose (Wixela Inhub) 1 ea PO BID folic acid 1 mg PO DAILY furosemide 20 mg PO DAILY gabapentin 100 mg PO TID Incruse Ellipta 62.5 mcg/actuation (umeclidinium) 2 inhalations PO DAILY NS ipratropium-albuterol 0.5 mg-3 mg(2.5 mg base)/3 mL 3 mL inhalation Q4-6H PRN levothyroxine 150 mcg PO DAILY 90 days metoprolol succinate ER 25 mg PO DAILY 90 days nicotine (polacrilex) 4 mg buccal Q2H PRN prednisone 20 mg PO BID 5 days quetiapine 100 mg PO BEDTIME thiamine HCl (vitamin B1) 100 mg (2 x 50 mg) PO DAILY HPI HPI SCC of skin, scalp and neck excision Bx: Details: 67-year-old female who says she is here to have a scalp lesion removed. She says that she has had this for several months. She thinks that this increased in size. She says that this bleeds periodically especially when she brushes or sorensen her hair She says she has no other lesions aside from the 1 on the scalp. She has COPD and uses O2 supplement periodically. She is an ex-smoker. [facility] Medical History (Updated 09/08/23 @ 09:02 by Amadeo Brandt MD) Scalp lesion Deafness in right ear COPD exacerbation Substance use disorder Acquired hypothyroidism Generalized anxiety disorder Hypoxemia COPD (chronic obstructive pulmonary disease) Hypoxemia COPD (chronic obstructive pulmonary disease) Surgical History History of hip replacement Family History Father No problems noted. Mother No problems noted. Other Mental health disorder Substance use disorder Social History Housing: House Alcohol intake: never Patient Tobacco Use Status: Former Tobacco user Quit Date: 2016 Tobacco use type: Cigarette e-Cigarette/Vaping Use: Never Used Second Hand Smoke Exposure: No service: No Current occupational status: retired Cognitive needs: No Hearing needs: Yes (hearing aides) Vision needs: Yes (Glasses) Review of Systems Const Denies chills and Denies fever(s) Card Denies chest pain, Denies dyspnea and Reports dyspnea on exertion Resp Denies cough, Denies dyspnea and Reports dyspnea on exertion GI Denies hematochezia and Denies change in bowel habits Denies hematuria Musc Denies back pain and Denies limited range of motion Neuro Denies focal weakness and Denies convulsions Psych Denies depression and Denies mood swings Physical Exam Vital Signs: Last Vital Signs Pulse 84 09/08/23 08:43 BP 124/61 09/08/23 08:43 BMI result Body Mass Index 29.4 Const Other: Has 2 by nasal cannula General: comfortable and no acute distress Orientation/consciousness: patient oriented x3 HEENT Other: Scalp lesion, about 1 cm in diameter, elevated, pearly edges, located on the frontal area Neck Neck: Yes no lymphadenopathy Resp Auscultation: clear to auscultation bilaterally Cardio Rhythm: regular rhythm GI Palpation (GI): Soft to palpation, nontender and no guarding Neuro General: patient oriented x3 Assessment & Plan Assessment & Plan (1) Scalp lesion: Code(s): L98.9 - Disorder of the skin and subcutaneous tissue, unspecified Category: Medical Plan: She has a scalp lesion as described above. She wants this removed. I explained the technique of excision under local anesthesia. I explained the risks including but not limited to bleeding, infections and poor healing, as well as the benefits and alternatives She understands and wants to proceed. This will be done as an office procedure on her next visit. Coding Level of Care Code New Pt Level 3 (96397) Diagnoses Scalp lesion L98.9
== END 2023-09-08 09:03 | disposition home or self-care (01) ==
LOC: HO.HGS 08:42
PROVIDERS: PCP Internal Medicine; Visit Provider Surgery
DX: L98.9 Disorder of the skin and subcutaneous tissue, unspecified (principal)
CPT/HCPCS: 99203

== ENCOUNTER → 2023-09-08 08:42 | Outpatient (BNVA) | payer OTHER, SELFPAY | PROVIDERS: PCP Internal Medicine; Visit Provider Surgery | DX: L98.9 Disorder of the skin and subcutaneous tissue, unspecified (principal) | CPT/HCPCS: 99202 ==

== ENCOUNTER 2023-10-06 09:08 | Outpatient (REF) | payer OTHER, SELFPAY | END 2023-10-06 09:09 | disposition home or self-care (01) | LOC: HO.LNP 09:08 | PROVIDERS: PCP Internal Medicine; Visit Provider Surgery | DX: L98.9 Disorder of the skin and subcutaneous tissue, unspecified (principal) | CPT/HCPCS: 11621; 88304; 88305 ==

== ENCOUNTER 2023-10-06 09:08 | Outpatient (AMB) | payer OTHER, SELFPAY ==
--- NOTE | 2023-10-06 09:35 | A.OFFVIS_ITS ---
Intake Visit Reasons: scalp and neck excision Bx Intake Note: Office procedure: scalp and neck excision Bx Post Framer Required: No Accompanied by: Self / Same As Patient Allergies duloxetine Allergy (Intermediate, Verified 10/06/23 09:43) upset stomach HPI HPI scalp and neck excision Bx: Details: She is here for excision of a scalp mass. [facility] Medical History Scalp lesion Deafness in right ear COPD exacerbation Substance use disorder Acquired hypothyroidism Generalized anxiety disorder Hypoxemia COPD (chronic obstructive pulmonary disease) Hypoxemia COPD (chronic obstructive pulmonary disease) Surgical History History of hip replacement Family History Father No problems noted. Mother No problems noted. Other Mental health disorder Substance use disorder Social History Housing: House Alcohol intake: never Patient Tobacco Use Status: Former Tobacco user Tobacco use type: Cigarette e-Cigarette/Vaping Use: Never Used Second Hand Smoke Exposure: No service: No Current occupational status: retired Cognitive needs: No Hearing needs: Yes (hearing aides) Vision needs: Yes (Glasses) Office Procedures Excision Details: She was in reclining position. The area of the scalp lesion was prepped and draped. Lidocaine 1% was used for local anesthesia. I made an elliptical incision on the skin surrounding the scalp lesion with a blade 15.. This was carried down through the full-thickness of the skin down to the subcutaneous layer to excise this entire area. The lesion was about 1 cm in diameter, eleva ade, smooth pearly borders I closed the incision with full-thickness nylon 3-0 interrupted sutures. Bacitracin dressings were applied. The procedure was completed. She tolerated the procedure well. There were no immediate complications. Blood loss about 15 cc. [id number] scalp/neck/hands/feet/genitalia 0.6cm-1cm Procedure code (CPT) selection complete Assessment & Plan Assessment & Plan (1) Scalp lesion: Code(s): L98.9 - Disorder of the skin and subcutaneous tissue, unspecified Category: Medical Plan: Excision was done under local anesthesia. She was given wound care instruct ions. She can take Tylenol and ibuprofen for pain. She will be seen in the office for removal sutures. Coding Level of Care Code Procedure Only Diagnoses Scalp lesion L98.9 CPT Codes Scalp/Neck/Hands/Feet/Genetalia - CPT: [id number] scalp/neck/hands/feet/genitalia 0.6cm-1cm ([id number])
== END 2023-10-06 10:13 | disposition home or self-care (01) ==
PROVIDERS: PCP Internal Medicine; Visit Provider Surgery
DX: C44.41 Basal cell carcinoma of skin of scalp and neck (principal)
CPT/HCPCS: 11621

== ENCOUNTER 2023-10-19 09:08 | Outpatient (AMB) | payer OTHER, SELFPAY ==
--- NOTE | 2023-10-19 09:27 | A.OFFVIS_ITS ---
Intake Visit Reasons: S/p scalp and neck excision Bx Intake Note: This patient presents for a post-op follow-up assessment status post excision scalp lesion. Patient c/o; reports no complaints. Child Development Assistant Required: No Accompanied by: Self / Same As Patient Allergies duloxetine Allergy (Intermediate, Verified 10/19/23 09:32) upset stomach HPI HPI S/p scalp and neck excision Bx: Details: She had undergone excision of a scalp lesion under local anesthesia 2 weeks ago and is here for postop visit. She denies any new complaints. [facility] Medical History Scalp lesion Deafness in right ear COPD exacerbation Substance use disorder Acquired hypothyroidism Generalized anxiety disorder Hypoxemia COPD (chronic obstructive pulmonary disease) Hypoxemia COPD (chronic obstructive pulmonary disease) Surgical History Hx of surgical procedure (~10/06/23) History of hip replacement Family History Father No problems noted. Mother No problems noted. Other Mental health disorder Substance use disorder Social History Housing: House Alcohol intake: never Patient Tobacco Use Status: Former Tobacco user Tobacco use type: Cigarette e-Cigarette/Vaping Use: Never Used Second Hand Smoke Exposure: No service: No Current occupational status: retired Cognitive needs: No Hearing needs: Yes (hearing aides) Vision needs: Yes (Glasses) Review of Systems Const Denies chills and Denies fever(s) Physical Exam Const Other: On home O2 via nasal cannula General: comfortable and no acute distress HEENT Other: Excision site on the frontal area of the scalp is well healed, 2 sutures seen Resp Other: On home O2 Assessment & Plan Assessment & Plan (1) Scalp lesion: Code(s): L98.9 - Disorder of the skin and subcutaneous tissue, unspecified Category: Medical Plan: status post excision. The incision is well healed. I removed her sutures. Her path report shows basal cell carcinoma and the margins are negative. I assured her about this. She does have a history of these skin cancers in the past She can follow up on a p.r.n. basis. Coding Level of Care Code Global (58488) Diagnoses Scalp lesion L98.9
== END 2023-10-19 10:05 | disposition home or self-care (01) ==
PROVIDERS: PCP Internal Medicine; Visit Provider Surgery
DX: L98.9 Disorder of the skin and subcutaneous tissue, unspecified (principal)
CPT/HCPCS: 99024

== ENCOUNTER → 2023-10-19 09:08 | Outpatient (BNVA) | payer OTHER, SELFPAY | PROVIDERS: PCP Internal Medicine; Visit Provider Surgery | DX: Z09 Encounter for follow-up examination after completed treatment for conditions other than malignant neoplasm (principal); Z87.2 Personal history of diseases of the skin and subcutaneous tissue | CPT/HCPCS: 99212 ==

== ENCOUNTER 2023-10-25 08:38 | Outpatient (AMB) | payer OTHER, SELFPAY ==
[2023-10-25 08:50] VITALS: BP 108/60; PULSE 76; O2SAT 93
--- NOTE | 2023-10-25 08:50 | A.OFFVIS_ITS ---
Vital Signs 10/25/23 08:50 Weight 159 lb 13.362 oz BP 108/60 Blood Pressure Location Lt brachial Position Sitting Pulse 76 Pulse Source Pulse Oximeter Pulse Oximetry (%) 93 Oxygen Delivery Method Nasal Cannula Oxygen Flow Rate 2 Intake Visit Reasons: COPD follow-up Allergies duloxetine Allergy (Intermediate, Verified 10/25/23 08:58) upset stomach Medication List - Last Reconciled 10/25/23 by Leticia Ferrell MD albuterol sulfate 90 mcg/actuation (Ventolin HFA) 2 puffs inhalation Q4-6H PRN amlodipine 2.5 mg PO DAILY buprenorphine-naloxone 8-2 mg 1 film sublingual BID cholecalciferol (vitamin D3) 1,250 mcg PO QWEEK citalopram 20 mg PO DAILY citalopram 20 mg PO DAILY doxycycline hyclate 100 mg PO BID 1 week ferrous sulfate 325 mg PO DAILY 90 days fluticasone propion-salmeterol 250-50 mcg/dose (Wixela Inhub) 1 ea PO BID folic acid 1 mg PO DAILY furosemide 20 mg PO DAILY gabapentin 100 mg PO TID Incruse Ellipta 62.5 mcg/actuation (umeclidinium) 2 inhalations PO DAILY NS ipratropium-albuterol 0.5 mg-3 mg(2.5 mg base)/3 mL 3 mL inhalation Q4-6H PRN levothyroxine 150 mcg PO DAILY 90 days metoprolol succinate ER 25 mg PO DAILY 90 days nicotine (polacrilex) 4 mg buccal Q2H PRN prednisone 20 mg PO BID 5 days quetiapine 100 mg PO BEDTIME thiamine HCl (vitamin B1) 100 mg (2 x 50 mg) PO DAILY Do you need a note to return to daycare/school/sports/work: No HPI HPI COPD follow-up: Details: This 68 years old very pleasant female with lifelong history of smoking and advanced COPD, comes today for her routine 4 months follow-up. During the past 4 months has been relatively free of any infection or acute exacerbation. She continues to participate in pulmonary rehab program and feels good about it. The breathing gets worse sometime during the hot and humid season. Also has slightly increased cough especially in the morning and evening, and finds it hard to bring up the phlegm. [facility] Medical History Scalp lesion Deafness in right ear COPD exacerbation Substance use disorder Acquired hypothyroidism Generalized anxiety disorder Hypoxemia COPD (chronic obstructive pulmonary disease) Hypoxemia COPD (chronic obstructive pulmonary disease) Surgical History Hx of surgical procedure (~10/06/23) History of hip replacement Family History Father No problems noted. Mother No problems noted. Other Mental health disorder Substance use disorder Social History Housing: House Alcohol intake: never Patient Tobacco Use Status: Former Tobacco user Tobacco use type: Cigarette e-Cigarette/Vaping Use: Never Used Second Hand Smoke Exposure: No service: No Current occupational status: retired Cognitive needs: No Hearing needs: Yes (hearing aides) Vision needs: Yes (Glasses) Review of Systems Const All systems reviewed & are unremarkable except as noted in HPI and below Eyes Reports no additional complaints ENT Reports no additional complaints Card Denies chest pain, Denies irregular heart rhythm and Denies leg edema Resp Reports as per HPI GI Reports no additional complaints Reports no additional complaints Musc Reports back pain (mild ) and Reports muscle weakness (General weakness) Skin/Breast Reports system reviewed and no additional complaints, except as documented Neuro Reports no additional complaints Psych Reports no additional complaints Endo Reports no additional complaints Physical Exam Vital Signs: Last Vital Signs Pulse 76 10/25/23 08:50 BP 108/60 10/25/23 08:50 Pulse Ox 93 10/25/23 08:50 Oxygen Delivery Method Nasal Cannula 10/25/23 08:50 Oxygen Flow Rate 2 10/25/23 08:50 Const General: comfortable, no acute distress, alert and awake Orientation/consciousness: patient oriented x3 HEENT Head: Yes normal to inspection General nose exam: No nasal polyps present and No nasal discharge present Face and sinus: Yes sinuses nontender Mouth: oropharynx normal Throat: Yes posterior oropharynx normal Eyes General: appearance normal, both eyes and all related structures Neck Neck: Yes normal visual inspection, Yes no lymphadenopathy, Yes trachea midline and Yes no JVD Thyroid: Thyroid normal Chest Chest palpation & inspection: normal inspection of the chest, normal palpation of entire chest wall and no tenderness Resp Other: Percussion note hyper-resonant, breath sounds are distant with prolonged expiratory phase. TODAY NO WHEEZES OR CREPITATIONS ARE HEARD. Cardio Palpation: normal PMI Rate: regular rate Rhythm: regular rhythm Heart sounds: no gallops and no murmurs GI Palpation (GI): Soft to palpation, nontender, No hepatosplenomegaly present and no masses Auscultation: normal bowel sounds Back/Spine/Pelvis Thoracic/Lumbar Spine: thoracic and lumbar spine normal to inspection and thoraco-lumbar ROM limited Skin General skin exam: no rashes or lesions noted Neuro General: patient oriented x3 and no focal motor deficits Cranial nerves: Yes CN's II-XII intact bilaterally Extrem General: Yes normal to inspection, Yes no clubbing, cyanosis or edema and Yes no calf tenderness Psych Appearance: grossly normal and well kempt Speech and movement: Normal speech and movement present Assessment & Plan Assessment & Plan (1) Hypoxemia: Comment: SHE DOES HAVE HYPOXEMIA AND MILD HYPERCAPNIA , DUE TO ADVANCED COPD. IT IS WELL TREATED WITH OXYGEN 2 L/MINUTES . Code(s): R09.02 - Hypoxemia Category: Medical Plan: Continue to use O2 2 L/minute, 24 hours a day. (2) COPD (chronic obstructive pulmonary disease): Comment: Has advanced chronic obstructive pulmonary disease, For the past many years. It has been very stable since she quit smoking completely . Current medical regimen is as follows : [place]: WIXELA 250-50 1 INHALATION B.I.D. INCRUSE ELLIPTA 1 INHALATION DAILY. DUONEB UPDRAFTS Q 6 HOURS P.R.N. Patient needs a new nebulizer for which the prescription has been written. Continues to participate in Pulmonary rehab program. Code(s): J44.9 - Chronic obstructive pulmonary disease, unspecified Category: Medical Qualifiers: COPD type: unspecified COPD Qualified Code(s): J44.9 - Chronic obstructive pulmonary disease, unspecified Plan: Continue Current medical regimen TX: WIXELA 250-50 1 INHALATION B.I.D. INCRUSE ELLIPTA 1 INHALATION DAILY. DUONEB UPDRAFTS Q 6 HOURS P.R.N. May use Mucinex 400 mg b.i.d. for cough and mucus Continues to participate in Pulmonary rehab program. Coding Level of Care Code Est Pt Level 3 (40566) Diagnoses Hypoxemia R09.02 Chronic obstructive pulmonary disease, unspecified COPD type J44.9 COPD type: unspecified COPD
== END 2023-10-25 09:07 | disposition home or self-care (01) ==
PROVIDERS: PCP Internal Medicine; Visit Provider Internal Medicine
DX: R09.02 Hypoxemia (principal); J44.9 Chronic obstructive pulmonary disease, unspecified
CPT/HCPCS: 99213

== ENCOUNTER → 2023-10-25 08:38 | Outpatient (BNVA) | payer OTHER, SELFPAY | PROVIDERS: PCP Internal Medicine; Visit Provider Internal Medicine | DX: J44.9 Chronic obstructive pulmonary disease, unspecified (principal); R09.02 Hypoxemia; Z99.81 Dependence on supplemental oxygen | CPT/HCPCS: 99212 ==

== ENCOUNTER 2023-12-08 09:26 | Outpatient (AMB) | payer OTHER, SELFPAY ==
[2023-12-08 10:06] VITALS: BP 110/60; PULSE 74; O2SAT 90; BMI 29.1
--- NOTE | 2023-12-08 10:06 | MHC.PC.OV ---
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 Required: No Accompanied by: Self / Same As Patient Allergies duloxetine Allergy (Intermediate, Verified 12/09/23 06:57) upset stomach Medication List - Last Reconciled 12/09/23 by Jadon Orantes MD albuterol sulfate 90 mcg/actuation (Ventolin HFA) 2 puffs inhalation Q4-6H PRN amlodipine 2.5 mg PO DAILY buprenorphine-naloxone 8-2 mg 1 film sublingual BID cholecalciferol (vitamin D3) 1,250 mcg PO QWEEK citalopram 20 mg PO DAILY citalopram 20 mg PO DAILY doxycycline hyclate 100 mg PO BID 1 week ferrous sulfate 325 mg PO DAILY 90 days fluticasone propion-salmeterol 250-50 mcg/dose (Wixela Inhub) 1 ea PO BID folic acid 1 mg PO DAILY furosemide 20 mg PO DAILY gabapentin 100 mg PO TID Incruse Ellipta 62.5 mcg/actuation (umeclidinium) 2 inhalations PO DAILY NS ipratropium-albuterol 0.5 mg-3 mg(2.5 mg base)/3 mL 3 mL inhalation Q4-6H PRN levothyroxine 150 mcg PO DAILY 90 days metoprolol succinate ER 25 mg PO DAILY 90 days nicotine (polacrilex) 4 mg buccal Q2H PRN prednisone 20 mg PO BID 5 days quetiapine 100 mg PO BEDTIME thiamine HCl (vitamin B1) 100 mg (2 x 50 mg) PO DAILY Tobacco use date assessed: 12/08/23 Fall risk assessment: 1 Fall in past year Last assessed Fall Risk: 12/08/23 Dental Screening Dental Screen Date: 12/08/23 Did you have a dental visit in the last 12 months?: No Did you have a dental problem in the last 6 months where you did not have access to dental care?: No Was dental information given to patient?: No HPI 3 Month F/U HPI Details 68-year-old female presents to the office to discuss her chronic medical condition. Patient comes to the office on her own, ambulating without any support using oxygen. Patient is at baseline state of health. Compliant with medications. Using her inhalers as directed. Due to her COPD, patient is not when she out much from home. Able to function and do all activities of daily living. Patient lives independently and is able to control her finances by herself. [facility] Medical History Scalp lesion Deafness in right ear COPD exacerbation Substance use disorder Acquired hypothyroidism Generalized anxiety disorder Hypoxemia COPD (chronic obstructive pulmonary disease) Hypoxemia COPD (chronic obstructive pulmonary disease) Surgical History Hx of surgical procedure (~10/06/23) History of hip replacement Family History Father No problems noted. Mother No problems noted. Other Mental health disorder Substance use disorder Social History Housing: House Alcohol intake: never Patient Tobacco Use Status: Former Tobacco user Tobacco use type: Cigarette e-Cigarette/Vaping Use: Never Used Second Hand Smoke Exposure: No service: No Current occupational status: retired Cognitive needs: No Hearing needs: Yes (hearing aides) Vision needs: Yes (Glasses) Questionnaire PHQ-9 Over the last 2 weeks, how often have you been bothered by any of the following problems? 1. Little interest or pleasure in doing things: not at all 2. Feeling down, depressed, or hopeless: nearly every day 3. Trouble falling or staying asleep, or sleeping too much: nearly every day 4. Feeling tired or having little energy: nearly every day 5. Poor appetite or overeating: not at all 6. Feeling bad about yourself - or that you are a failure or have let yourself or your family down: not at all 7. Trouble concentrating on things, such as reading the newspaper or watching television: not at all 8. Moving or speaking so slowly that other people could have noticed. Or the opposite - being so fidgety or restless that you have been moving around a lot more than usual: not at all 9. Thoughts that you would be better off or of hurting yourself in some way: not at all Total score: 9 Depression Screening Interpretation: Positive Depression Screening Follow-up: Existing condition and In treatment Depression Screening Done: Yes Source: Developed by Drs. David García, Jennifer Crouch, Brendan Taylor and colleagues, with an educational corby from [employer]. Thrive Questionnaire Date Thrive assessed: 12/08/23 I am a: Patient What is your living situation today?: I have a steady place to live Within the past 12 months, did the food you bought not last and you didn't have the money to get more?: Never true Within the past 12 months, did you worry whether your food would run out before you got money to buy more?: Never true Do you have trouble paying for medicines?: No Do you have trouble getting transportation to medical appointments?: No Do you have trouble paying your heating and electricity bill?: No Do you have trouble taking care of your child, family member or friend?: No Do you have trouble with day-to-day activities such as bathing, preparing meals, shopping, managing finances, etc.?: No Are you currently unemployed and looking for a job?: No Are you interested in more education?: No Please select the resources that you would like help with: None Currently or been in a relationship where the following occur: No concerns reported THRIVE Score: 0 AUDIT C Alcohol Use Questionnaire (AUDIT-C) 1. How often do you have a drink containing alcohol?: Never Total Score: 0 ALLY-7 AMB Questionnaire ALLY-7 Date ALLY - 7 assessed: 12/08/23 Feeling nervous, anxious, or on edge: 2 = More than half the days Not being able to stop or control worryin = Not at all Worrying too much about different things: 0 = Not at all Trouble relaxin = Not at all Being so restless that it is hard to sit still: 1 = Several days Becoming easily annoyed or irritable: 2 = More than half the days Feeling afraid as if something awful might happen: 0 = Not at all Total ALLY-7 score (0-4 normal; 5-9 mild; 10-14 moderate; 15-21 severe): 5 Source: Developed by Jennifer SaxenaW. Miko, Brendan Taylor and colleagues, with an educational corby from [employer]. Physical exam (Primary Care) Vital Signs: Last Vital Signs Pulse 74 12/08/23 10:06 BP 110/60 12/08/23 10:06 Pulse Ox 90 L 12/08/23 10:06 Oxygen Delivery Method Nasal Cannula 12/08/23 10:06 Oxygen Flow Rate 2 12/08/23 10:06 Care Plan Goal for BP management: Blood pressures at range. BMI result Body Mass Index 29.1 Tobacco/Smoking Status: Tobacco use Status Tobacco use date assessed 12/08/23 12/08/23 10:08 Patient Tobacco Use Status Former Tobacco user 12/08/23 10:08 Tobacco use type Cigarette 12/08/23 10:08 e-Cigarette/Vaping Use Never Used 12/08/23 10:08 PHQ-9: PHQ-9 Score PHQ-9: Total score 9 12/08/23 10:27 Depression Screening Interpretation: Positive Depression Screening Follow-up: Existing condition and In treatment Thrive Assessment: Date of Thrive Assessment Date Thrive assessed 12/08/23 12/08/23 10:08 Currently or been in a relationship where the following occur: No concerns reported Const General: cooperative and healthy appearing Nutritional Appearance: well nourished Orientation/consciousness: patient oriented x3 Limitations: no limitations HENMT Head: Yes normal to inspection Eyes General: appearance normal, both eyes and all related structures Neck Neck: Yes normal visual inspection Chest Chest palpation & inspection: normal palpation of entire chest wall Resp Effort & Inspection: normal respiratory effort Neuro General: patient oriented x3 Assessment and Plan Assessment & Plan (1) COPD (chronic obstructive pulmonary disease): Comment: She has long-standing diagnosis of COPD. She has recovered from her recent acute exacerbation and is back to baseline. Code(s): J44.9 - Chronic obstructive pulmonary disease, unspecified Plan: COPD is at baseline. Continue the use of prednisone, inhalers and antibiotics. Patient sees a release of information clerk. (2) Substance use disorder: Code(s): F19.90 - Other psychoactive substance use, unspecified, uncomplicated Plan: Condition is stable. Continue to use Suboxone. (3) Generalized anxiety disorder: Code(s): F41.1 - Generalized anxiety disorder Plan: Patient is on citalopram. Medication is working well. Continue medications at same dosage. (4) Acquired hypothyroidism: Code(s): E03.9 - Hypothyroidism, unspecified Plan: TSH has been very labile. Blood work will be ordered. Encourage patient to get it done. Based on the blood work Synthroid dosage will be adjusted Orders: Orders MM screening mammo BI Today Z12.31 - Encounter for screening mammogram for malignant neoplasm of breast Coding Level of Care Code Est Pt Level 4 (25102) Complex EM visit Add On G2211 Diagnoses COPD (chronic obstructive pulmonary disease) J44.9 Substance use disorder F19.90 Generalized anxiety disorder F41.1 Acquired hypothyroidism E03.9
== END 2023-12-08 11:09 | disposition home or self-care (01) ==
PROVIDERS: PCP Internal Medicine; Visit Provider Internal Medicine
DX: J44.9 Chronic obstructive pulmonary disease, unspecified (principal); F19.90 Other psychoactive substance use, unspecified, uncomplicated; F41.1 Generalized anxiety disorder; E03.9 Hypothyroidism, unspecified
CPT/HCPCS: 99214; G2211

== ENCOUNTER 2023-12-23 15:32 | Emergency (ER) | payer OTHER, SELFPAY ==
--- NOTE | ~2023-12-23 | XR_ITS ---
EXAMINATION: XR CHEST CLINICAL INFORMATION: Shortness of breath COMPARISON: None available. TECHNIQUE: 2 views of the chest were obtained. FINDINGS: No significant abnormality is noted involving the heart, lungs, mediastinum, bony thorax or soft tissues. XR/XR chest 2V IMPRESSION: Unremarkable examination. Electronically signed by: Landen Woodall MD 12/23/2023 06:03 PM EDT RP
[2023-12-23 15:45] VITALS: BP 137/68; PULSE 67; RESP 20; TEMP 36.8; O2SAT 90; BMI 27.5
--- NOTE | 2023-12-23 15:46 | ED.GENADULT ---
HPI - General Adult General Chief complaint: Dyspnea Stated complaint: trouble breathing 4 days, COPD Time Seen by Provider: 12/23/23 16:03 Source: patient and family Mode of arrival: wheelchair Limitations: no limitations History of Present Illness HPI narrative: Patient is a 68-year-old female presenting to emergency department for evaluation of shortness of breath. She reports progressive symptoms over the past 4 days including increased work of breathing, dyspnea on exertion, shortness of breath, chest heaviness, cough that is intermittently productive with green phlegm; a change from baseline. Denies fevers or chills. Denies known sick contacts. Denies pedal edema. Despite using inhaler and nebulizer treatments at home her symptoms continue. She has home O2, she is to wear 2 L via nasal cannula at night or while she is ambulating. Related Data Home Medications ?Medication ?Instructions ?Recorded ?Confirmed buprenorphine 8 mg-naloxone 2 mg 1 film sublingual BID 01/14/20 10/25/23 sublingual film nicotine (polacrilex) 4 mg gum 4 mg buccal Q2H PRN Smoking 08/16/21 10/25/23 Cessation quetiapine 100 mg tablet 100 mg PO BEDTIME 06/28/22 10/25/23 citalopram 20 mg tablet 20 mg PO DAILY 09/08/23 10/25/23 Previous Rx's ?Medication ?Instructions ?Recorded ipratropium 0.5 mg-albuterol 3 mg 3 ml inhalation Q4-6H PRN wheezing 08/24/21 (2.5 mg base)/3 mL nebulization #90 mL soln thiamine HCl (vitamin B1) 50 mg 100 mg (2 x 50 mg) PO DAILY #180 10/28/22 tablet tabs fluticasone 250 mcg-salmeterol 50 1 ea PO BID #180 caps 05/24/23 mcg/dose blistr powdr for inhalation (Wixela Inhub) citalopram 20 mg tablet 20 mg PO DAILY #90 tabs 05/25/23 folic acid 1 mg tablet 1 mg PO DAILY #90 tabs 05/25/23 levothyroxine 150 mcg tablet 150 mcg PO DAILY 90 days #90 tabs 06/02/23 cholecalciferol (vitamin D3) 1,250 1,250 mcg PO QWEEK #4 caps 08/06/23 mcg (50,000 unit) capsule doxycycline hyclate 100 mg tablet 100 mg PO BID ac. Bronchitis 1 08/16/23 week #14 tabs prednisone 20 mg tablet 20 mg PO BID copd excerbation 5 08/16/23 days #10 tabs Incruse Ellipta 62.5 mcg/actuation 2 inh PO DAILY #30 ea 10/10/23 powder for inhalation (umeclidinium) albuterol sulfate 90 mcg/actuation 2 puff inhalation Q4-6H PRN for 10/10/23 aerosol inhaler (Ventolin HFA) wheezing #18 ea amlodipine 2.5 mg tablet 2.5 mg PO DAILY #90 tabs 10/26/23 ferrous sulfate 325 mg (65 mg 325 mg PO DAILY 90 days #90 tabs 10/26/23 iron) tablet furosemide 20 mg tablet 20 mg PO DAILY #90 tabs 10/26/23 gabapentin 100 mg capsule 100 mg PO TID #270 caps 10/26/23 metoprolol succinate 25 mg 25 mg PO DAILY 90 days #90 tabs 10/26/23 tablet,extended release 24 hr azithromycin 250 mg tablet 250 mg PO DAILY 4 days #4 tabs 12/23/23 prednisone 20 mg tablet 40 mg (2 x 20 mg) PO DAILY #8 tabs 12/23/23 Allergies Allergy/AdvReac Type Severity Reaction Status Date / Time duloxetine Allergy Intermediate upset Verified 12/23/23 15:49 stomach Review of Systems Review of Systems: Yes all other systems are reviewed and are negative PMFSH Past Medical History Attestation statement: The following information was validated with the patient. Source: old records reviewed Medical History Scalp lesion Deafness in right ear COPD exacerbation Substance use disorder Acquired hypothyroidism Generalized anxiety disorder Hypoxemia COPD (chronic obstructive pulmonary disease) Hypoxemia COPD (chronic obstructive pulmonary disease) Surgical History Hx of surgical procedure (~10/06/23) History of hip replacement Family History Family History Father No problems noted. Mother No problems noted. Other Mental health disorder Substance use disorder Social History Social History Housing: House Alcohol intake: never Patient Tobacco Use Status: Former Tobacco user Tobacco use type: Cigarette e-Cigarette/Vaping Use: Never Used Second Hand Smoke Exposure: No Advance Directives: No Advance Directives Information Provided: No Do you have a plan to hurt others: No Plan service: No Current occupational status: retired Cognitive needs: No Hearing needs: Yes (hearing aides) Vision needs: Yes (Glasses) Physical Exam ED Vital Signs: Vital Signs - 24 hr 12/23/23 15:45 12/23/23 16:07 12/23/23 18:03 Temperature 98.2 F 97.8 F Pulse Rate 67 67 63 Respiratory Rate 20 24 H 16 Blood Pressure 137/68 141/70 H Pulse Oximetry 90 L 94 Oxygen Delivery Method Nasal Cannula Room Air BMI result Body Mass Index 27.5 Appearance: Alert.?Oriented to person, place and time. No acute distress.?Normal affect. Eyes: Pupils equal, round and reactive to light.? ENT: Pharynx normal.?? Neck: Normal inspection.? Neck supple.?? CVS: Heart sounds normal. Normal heart rate and rhythm.? Pulses normal.?? Respiratory: Increased work of breathing, tachypneic, decreased lung sounds on inspiration bilaterally, prolonged expiratory phase with expiratory wheezing Abdomen: Soft and non-tender. Normoactive bowel sounds. ? Skin: Skin warm and dry.? Normal skin color.? ? Extremities: No lower extremity edema.? No calf ttp? Neuro: Moves all extremities spontaneously. Sensation intact bilaterally. CN II-XII intact. No focal neuro deficits. Ambulates with normal steady gait. Course Course Course Narrative: RME performed by Lupe Cerna PA-C. Patient is a 68 year old assigned female at presenting to the emergency department with COPD normally on 2 liters of oxygen. Patient states that she has been much more short of breath lately and has not been on any recent steroids or antibiotics. Patient states that it has been a long time she has been hospitalized. Detailed physical exam and review of systems are deferred to the exerciser horse. EKG, labs, imaging, swabs ordered. Patient pursed lips breathing. 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 Reevaluation(s) Reevaluation #1: VBG without acidosis, CO2 56 bicarb 36. No electrolyte derangement. No JONNIE. LFTs within normal range. BNP not consistent CHF. CBC is without leukocytosis, anemia, or thrombocytopenia. EKG nonischemic, high sensitive troponin below detectable limits. BNP not consistent with CHF. She reports significant improvement in her symptoms after receiving nebulizer and Solu-Medrol she is requesting discharge home at this time. I noticed her to be ambulatory with a steady gait, she has supplemental O2 to use at home. She is provided with her 1st dose of azithromycin sent prescription for prednisone remainder of azithromycin to her pharmacy. Discussed strict return precautions. All questions answered. Stable for discharge. Time: 19:14 Medications Administered Discontinued Medications Generic Name Dose Route Start Last Admin Trade Name Freq PRN Reason Stop Dose Admin Albuterol Sulfate 5 mg/ 0 mg 12/23/23 16:07 12/23/23 16:10 Albuterol/Ipratropium 3 ml INHALE 12/23/23 16:08 1 each ONCE ONE Administration Methylprednisolone Sodium Succinate 125 mg 12/23/23 16:26 12/23/23 16:50 Methylprednisolone Sod Succ 125 Mg/2 Ml Vial IVPUSH 12/23/23 16:27 125 mg ONCE ONE Administration Medical Decision Making Medical Decision Making [facility] Narrative: Patient is a 68-year-old female with past medical history of COPD, substance use disorder, anxiety, hypothyroidism presenting to emergency department for evaluation shortness of breath and cough as per HPI. She has notable increased work of breathing at the time of my evaluation, significantly diminished inspiratory auscultation, prolonged expiratory phase with expiratory wheezing. Concern for COPD exacerbation, patient will receive DuoNeb nebulizer, Solu-Medrol IV, Will obtain CBC to evaluate for leukocytosis/ anemia, CMP and lipase to evaluate for abnormal electrolytes /abnormal renal function/ abnormal hepatic/biliary function, EKG and troponin to evaluate for ischemia/ACS. Chest x-ray to evaluate for consolidation/ infiltrate/ mass/ pulmonary congestion and viral panel. Differential Diagnosis Differential Diagnoses: The differential diagnosis associated with the presentation includes (See narrative above) Admission/Observation Consideration of admission/observation: Escalation of care including admission/observation considered Lab Data [facility] Lab Attestation statement: I reviewed the patient's lab results. 12/23/23 16:22 12/23/23 16:22 Labs: Lab Results 12/23/23 12/23/23 Range/Units 16:22 16:32 WBC 6.4 (4.8-10.8) X10*3/uL RBC 4.18 L (4.20-5.50) X10*6/uL Hgb 13.0 (12.0-16.0) g/dl Hct 39.6 (37.0-47.0) % MCV 94.7 (80.0-98.0) fL MCH 31.1 (27.0-33.0) pg MCHC 32.8 (31.0-35.0) g/dl RDW 12.5 (11.0-16.0) % Plt Count 177 (160-400) X10*3/uL MPV 10.9 (9.4-12.3) fL Immature Gran % (Auto) 0.2 (0.0-0.4) % Neut % (Auto) 33.6 L (45-73) % Lymph % (Auto) 43.4 H (20-40) % Stanley % (Auto) 8.0 (2-11) % Eos % (Auto) 13.9 H (0-4) % Baso % (Auto) 0.9 (0-2) % Lymph # (Auto) 2.8 (1.2-4.9) X10*3/uL Stanley # (Auto) 0.5 (0.1-1.2) X10*3/uL Eos # (Auto) 0.9 H (0.0-0.4) X10*3/uL Baso # (Auto) 0.1 (0.0-0.2) X10*3/uL Abs Immat Gran (auto) 0.01 (0.00-0.03) X10*3/uL Absolute Neuts (auto) 2.1 (2.0-8.3) x10*3/uL Absolute Nucleated RBC 0.000 (0.0-0.012) X10*3/uL Nucleated RBC % (auto) 0.0 (0.0-0.2) /100WBC VBG pH 7.41 (7.32-7.43) VBG pCO2 56 mmHg VBG pO2 108 mmHg VBG HCO3 36 H (22-26) mmol/L VBG O2 Saturation 100.0 % VBG Base Excess 10.1 mmol/L Sodium 140 (135-145) mmol/L Potassium 4.3 (3.3-5.1) mmol/L Chloride 102 (96-108) mmol/L Carbon Dioxide 35 H (22-29) mmol/L Anion Gap 7 L (12-20) BUN 12 (9-16) mg/dL Creatinine 0.79 (0.5-1.4) mg/dL Estim Creat Clear Calc 65.6 Estimated GFR > 60 Random Glucose 88 (60-115) mg/dL Calcium 9.4 D (8.4-10.2) mg/dL Magnesium 1.9 (1.6-2.6) mg/dL Total Bilirubin 0.3 (0.0-1.0) mg/dL AST 15 (5-31) U/L ALT 8 (0-31) U/L Alkaline Phosphatase 76 (39-117) U/L Troponin I High Sens < 2.7 (<3.5-17.0) ng/L B-Natriuretic Peptide 85 (<100) pg/mL Total Protein 7.0 (6.5-8.0) g/dL Albumin 4.0 (3.5-5.0) g/dL Procalcitonin < 0.02 ng/mL Influenza Type A (PCR) NEGATIVE (Negative) Influenza Type B (PCR) NEGATIVE (Negative) RSV RNA Qual (PCR) NEGATIVE (Negative) SARS-CoV-2 RNA (RT-PCR) NEGATIVE (Negative) Independent Interpretation I performed an independent interpretation of an: EKG Interpretation: Rate: 62 Rhythm:? Normal sinus rhythm Normal P waves.? Normal NHAN.?? Normal QRS complex.?? ST T wave :??No ST elevation, no ST depression qTC: 416 The study has been interpreted contemporaneously by me. Radiology Impression Discussion of test interpretation with radiology: I have reviewed the radiologist's reading. Radiologist Impression: XR/XR chest 2V IMPRESSION: Unremarkable examination. Independent Historian Clinical information obtained from an independent historian. History obtained from or confirmed by: Spouse External Record Review External record reviewed: Outpatient record Discharge Plan Discharge Clinical Impression: COPD exacerbation Patient Disposition: Home, Self-Care Instructions: COPD (Chronic Obstructive Pulmonary Disease) (ED) Additional Instructions: Begin taking a course of steroids tomorrow as well as her antibiotics. You received your 1st doses in the emergency department tonight. Please follow-up with your primary care doctor next week. Return to emergency department any new or worsening symptoms or concerns. Prescriptions: New prednisone 20 mg tablet 40 mg PO DAILY Qty: 8 0RF azithromycin 250 mg tablet 250 mg PO DAILY 4 Days Qty: 4 0RF Rx Instructions: start on day 2 of therapy No Action fluticasone propion-salmeterol [Wixela Inhub] 250-50 mcg/dose blister with device 1 ea PO BID Qty: 180 1RF citalopram 20 mg tablet 20 mg PO DAILY Qty: 90 1RF folic acid 1 mg tablet 1 mg PO DAILY Qty: 90 1RF levothyroxine 150 mcg tablet 150 mcg PO DAILY 90 Days Qty: 90 0RF cholecalciferol (vitamin D3) 1,250 mcg (50,000 unit) capsule 1,250 mcg PO QWEEK Qty: 4 1RF doxycycline hyclate 100 mg tablet 100 mg PO BID 7 Days Qty: 14 0RF prednisone 20 mg tablet 20 mg PO BID 5 Days Qty: 10 0RF Incruse Ellipta 62.5 mcg/actuation blister with device 2 inh PO DAILY Qty: 30 3RF albuterol sulfate [Ventolin HFA] 90 mcg/actuation HFA aerosol inhaler 2 puff inhalation Q4-6H PRN (Reason: for wheezing) Qty: 18 2RF furosemide 20 mg tablet 20 mg PO DAILY Qty: 90 1RF metoprolol succinate 25 mg tablet extended release 24 hr 25 mg PO DAILY 90 Days Qty: 90 1RF ferrous sulfate 325 mg (65 mg iron) tablet 325 mg PO DAILY 90 Days Qty: 90 1RF amlodipine 2.5 mg tablet 2.5 mg PO DAILY Qty: 90 1RF gabapentin 100 mg capsule 100 mg PO TID Qty: 270 1RF nicotine (polacrilex) 4 mg Gum 4 mg BUCCAL Q2H PRN (Reason: Smoking Cessation) thiamine HCl (vitamin B1) 50 mg tablet 100 mg PO DAILY Qty: 180 1RF buprenorphine-naloxone 8-2 mg film 1 film sublingual BID ipratropium-albuterol 0.5 mg-3 mg(2.5 mg base)/3 mL solution for nebulization 3 ml inhalation Q4-6H PRN (Reason: wheezing) Qty: 90 3RF quetiapine 100 mg tablet 100 mg PO BEDTIME citalopram 20 mg tablet 20 mg PO DAILY Referrals: Physician,Unknown J [Primary Care Provider] - Print Language: [place]an
--- NOTE | 2023-12-23 15:48 | ECG_ITS ---
Test Reason : sob Blood Pressure : / mmHG Vent. Rate : 062 BPM Atrial Rate : 062 BPM P-R Int : 120 ms QRS Dur : 066 ms QT Int : 410 ms P-R-T Axes : 018 063 061 degrees QTc Int : 416 ms Normal sinus rhythm Nonspecific ST abnormality Abnormal ECG When compared with ECG of 16-AUG-2021 12:37, Premature ventricular complexes are no longer Present ST elevation now present in Inferior leads Nonspecific T wave abnormality no longer evident in Inferior leads Referred By: Lupe Cerna Electronically Signed By:MANUELITO TIMMONS
[2023-12-23 16:07] VITALS: PULSE 67; RESP 24; O2SAT 93
[2023-12-23] MEDS: Albuterol Sulfate 5 MG, Albuterol/Iprat 2.5/0.5MG 3 ML 3 ML INHALE (16:10)
[2023-12-23 16:33] LABS: MANUAL DIFF FLAG NO
[2023-12-23 16:34] LABS: Venous Blood Gas Refer to POC result
[2023-12-23 16:35] LABS: VBG Base Excess 10.1 mmol/L; VBG HCO3 36 mmol/L (22-26); VBG pCO2 56 mmHg; VBG pH 7.41 (7.32-7.43); VBG pO2 108 mmHg
[2023-12-23 16:35] LABS: Basophils Absolute Auto 0.1 X10*3/uL (0.0-0.2); Basophils Percent Auto 0.9 % (0-2); Eosinophils Absolute Auto 0.9 X10*3/uL (0.0-0.4); Eosinophils Percent Auto 13.9 % (0-4); Hematocrit 39.6 % (37.0-47.0); Imm Gran Abs Auto 0.01 X10*3/uL (0.00-0.03); Imm Gran Pct Auto 0.2 % (0.0-0.4); Lymphocytes Absolute Auto 2.8 X10*3/uL (1.2-4.9); Lymphocytes Percent Auto 43.4 % (20-40); Mean Corpuscular HGB Conc 32.8 g/dl (31.0-35.0); Mean Corpuscular Hemoglobin 31.1 pg (27.0-33.0); Mean Corpuscular Volume 94.7 fL (80.0-98.0); Mean Platelet Volume 10.9 fL (9.4-12.3); Monocytes Absolute Auto 0.5 X10*3/uL (0.1-1.2); Neutrophils Absolute Auto 2.1 x10*3/uL (2.0-8.3); Neutrophils Percent Auto 33.6 % (45-73); Platelet Count 177 X10*3/uL (160-400); Red Blood Count 4.18 X10*6/uL (4.20-5.50); Red Cell Distribution Width 12.5 % (11.0-16.0); White Blood Count 6.4 X10*3/uL (4.8-10.8)
[2023-12-23 16:49] LABS: Alanine Aminotransferase 8 U/L (0-31); Alkaline Phosphatase 76 U/L (39-117); Anion Gap 7 (12-20); Aspartate Amino Transferase 15 U/L (5-31); Bilirubin Total 0.3 mg/dL (0.0-1.0); Blood Urea Nitrogen 12 mg/dL (9-16); Calcium 9.4 mg/dL (8.4-10.2); Carbon Dioxide 35 mmol/L (22-29); Chloride 102 mmol/L (96-108); Creatinine Clr Calc Pharmacy 65.6; Estimated Glomerular Filt Rate > 60; Glucose Random 88 mg/dL (60-115); Magnesium 1.9 mg/dL (1.6-2.6); Potassium 4.3 mmol/L (3.3-5.1); Sodium 140 mmol/L (135-145)
[2023-12-23] MEDS: methylPREDNISolone Sod Succ 125 MG/2 ML VIAL IVPUSH (16:50)
[2023-12-23 16:55] LABS: B Type Natriuretic Peptide 85 pg/mL (<100)
[2023-12-23 17:09] LABS: Troponin-I High Sensitivity < 2.7 ng/L (<3.5-17.0)
[2023-12-23 17:10] LABS: Procalcitonin < 0.02 ng/mL
[2023-12-23 17:26] LABS: Influenza A PCR NEGATIVE (Negative); Influenza B PCR NEGATIVE (Negative); Resp Syncy Virus RNA Qual PCR NEGATIVE (Negative); SARS COV2 PCR INHOUSE NEGATIVE (Negative)
[2023-12-23 18:03] VITALS: BP 141/70; PULSE 63; RESP 16; TEMP 36.6; O2SAT 94
[2023-12-23 19:24] VITALS: BP 151/83; PULSE 64; RESP 16; TEMP 36.7; O2SAT 93
[2023-12-23 19:36] VITALS: BP 151/83; PULSE 64; RESP 14; TEMP 36.7; O2SAT 93
== END 2023-12-23 19:37 | disposition home or self-care (01) ==
PROVIDERS: Physician Assistant; Physician Assistant Medical; Emergency Provider Emergency Medicine Emergency Medical Services
DX: J44.1 Chronic obstructive pulmonary disease with (acute) exacerbation (principal); Z03.818 Encounter for observation for suspected exposure to other biological agents ruled out; R06.02 Shortness of breath; R05.9 Cough, unspecified; F11.20 Opioid dependence, uncomplicated; Z87.891 Personal history of nicotine dependence; Z79.899 Other long term (current) drug therapy
CPT/HCPCS: 0241U; 36415; 71046; 80053; 82803; 83735; 83880; 84145; 84484; 85025; 93005; 94640; 96374; 99284; 99285; J2919

== ENCOUNTER 2023-12-27 08:53 | Outpatient (AMB) | payer OTHER, SELFPAY ==
[2023-12-27 09:06] VITALS: BP 138/68; PULSE 72; O2SAT 93; BMI 29.1
--- NOTE | 2023-12-27 09:06 | A.OFFVIS_ITS ---
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 Allergies duloxetine Allergy (Intermediate, Verified 12/27/23 09:26) upset stomach Medication List - Last Reconciled 12/27/23 by Leticia Ferrell MD albuterol sulfate 90 mcg/actuation (Ventolin HFA) 2 puffs inhalation Q4-6H PRN amlodipine 2.5 mg PO DAILY azithromycin 250 mg PO DAILY 4 days buprenorphine-naloxone 8-2 mg 1 film sublingual BID cholecalciferol (vitamin D3) 1,250 mcg PO QWEEK citalopram 20 mg PO DAILY ferrous sulfate 325 mg PO DAILY 90 days fluticasone propion-salmeterol 250-50 mcg/dose (Wixela Inhub) 1 ea PO BID folic acid 1 mg PO DAILY furosemide 20 mg PO DAILY gabapentin 100 mg PO TID Incruse Ellipta 62.5 mcg/actuation (umeclidinium) 2 inhalations PO DAILY NS ipratropium-albuterol 0.5 mg-3 mg(2.5 mg base)/3 mL 3 mL inhalation Q4-6H PRN levothyroxine 150 mcg PO DAILY 90 days metoprolol succinate ER 25 mg PO DAILY 90 days nicotine (polacrilex) 4 mg buccal Q2H PRN quetiapine 100 mg PO BEDTIME thiamine HCl (vitamin B1) 100 mg (2 x 50 mg) PO DAILY Do you need a note to return to daycare/school/sports/work: No HPI HPI f/u er: Details: This 68 years old female is a known case of advanced chronic obstructive pulmonary disease. She was doing well up until last week and then started having increased cough with wheezing as well as chest tightness. She denied fever or chills. She was checked in the emergency room on 12/22 and, CBC as well as chest x-ray was found to be negative, no sign of infection. Treated for an acute exacerbation with prednisone for 4 days and also azithromycin for 4 days. She comes today complaining of ongoing cough with wheezing and still getting short of breath on minimal exertion. Cough is mostly nonproductive, and results in some discomfort in anterior chest. [facility] Medical History Scalp lesion Deafness in right ear COPD exacerbation Substance use disorder Acquired hypothyroidism Generalized anxiety disorder Hypoxemia COPD (chronic obstructive pulmonary disease) Hypoxemia COPD (chronic obstructive pulmonary disease) Surgical History Hx of surgical procedure (~10/06/23) History of hip replacement Family History Father No problems noted. Mother No problems noted. Other Mental health disorder Substance use disorder Social History Housing: House Alcohol intake: never Patient Tobacco Use Status: Former Tobacco user Tobacco use type: Cigarette e-Cigarette/Vaping Use: Never Used Second Hand Smoke Exposure: No service: No Current occupational status: retired Cognitive needs: No Hearing needs: Yes (hearing aides) Vision needs: Yes (Glasses) Review of Systems Const All systems reviewed & are unremarkable except as noted in HPI and below Eyes Reports no additional complaints ENT Reports no additional complaints Card Denies chest pain, Denies irregular heart rhythm and Denies leg edema Resp Reports as per HPI GI Reports no additional complaints Reports no additional complaints Musc Reports back pain (mild ) and Reports muscle weakness (General weakness) Skin/Breast Reports system reviewed and no additional complaints, except as documented Neuro Reports no additional complaints Psych Reports no additional complaints Endo Reports no additional complaints Physical Exam Vital Signs: Last Vital Signs Pulse 72 12/27/23 09:06 BP 138/68 12/27/23 09:06 Pulse Ox 93 12/27/23 09:06 Oxygen Delivery Method Nasal Cannula 12/27/23 09:06 Oxygen Flow Rate 2 12/27/23 09:06 BMI result Body Mass Index 29.1 Const General: comfortable, no acute distress, alert and awake Orientation/consciousness: patient oriented x3 HEENT Head: Yes normal to inspection General nose exam: No nasal polyps present and No nasal discharge present Face and sinus: Yes sinuses nontender Mouth: oropharynx normal Throat: Yes posterior oropharynx normal Eyes General: appearance normal, both eyes and all related structures Neck Neck: Yes normal visual inspection, Yes no lymphadenopathy, Yes trachea midline and Yes no JVD Thyroid: Thyroid normal Chest Chest palpation & inspection: normal inspection of the chest, normal palpation of entire chest wall and no tenderness Resp Other: Percussion note hyper-resonant, breath sounds are distant with prolonged expiratory phase. She does have expiratory wheezes on both sides, no crepitations . Cardio Palpation: normal PMI Rate: regular rate Rhythm: regular rhythm Heart sounds: no gallops and no murmurs GI Palpation (GI): Soft to palpation, nontender, No hepatosplenomegaly present and no masses Auscultation: normal bowel sounds Back/Spine/Pelvis Thoracic/Lumbar Spine: thoracic and lumbar spine normal to inspection and thoraco-lumbar ROM limited Skin General skin exam: no rashes or lesions noted Neuro General: patient oriented x3 and no focal motor deficits Cranial nerves: Yes CN's II-XII intact bilaterally Extrem General: Yes normal to inspection, Yes no clubbing, cyanosis or edema and Yes no calf tenderness Psych Appearance: grossly normal and well kempt Speech and movement: Normal speech and movement present Assessment & Plan Assessment & Plan (1) COPD exacerbation: Comment: 68 YEARS OLD FEMALE A KNOWN CASE OF ADVANCED CHRONIC OBSTRUCTIVE PULMONARY DISEASE WITH CHRONIC RESPIRATORY FAILURE SHE IS PRONE TO HAVE FREQUENT ACUTE EXACERBATIONS DUE TO ACUTE VIRAL/BACTERIAL RESPIRATORY INFECTIONS. CURRENTLY ACUTE INFLAMMATORY PROCESS AND BILATERAL BRONCHITIS. WITH A SHORT COURSE OF PREDNISONE AND AZITHROMYCIN SHE HAS NOT RECOVERED COMPLETELY. Code(s): J44.1 - Chronic obstructive pulmonary disease with (acute) exacerbation Category: Medical Plan: ADVISED TO CONTINUE HER REGULAR MEDICAL REGIMEN. PREDNISONE 10 MG B.I.D. FOR 5 DAYS THEN 10 MG ONCE A DAY FOR 5 DAYS . NO NEED OF ANY ADDITIONAL ANTIBIOTIC TREATMENT. USE MUCINEX OR ROBITUSSIN [id number] T.I.D. FOR COUGH. (2) Hypoxemia: Comment: SHE DOES HAVE HYPOXEMIA AND MILD HYPERCAPNIA , DUE TO ADVANCED COPD. IT IS WELL TREATED WITH OXYGEN 2 L/MINUTES . Code(s): R09.02 - Hypoxemia Category: Medical Plan: CONTINUE O2 2 L/MINUTE Coding Level of Care Code Est Pt Level 3 (96509) Diagnoses COPD exacerbation J44.1 Hypoxemia R09.02
== END 2023-12-27 09:23 | disposition home or self-care (01) ==
PROVIDERS: Visit Provider Internal Medicine
DX: J44.1 Chronic obstructive pulmonary disease with (acute) exacerbation (principal); R09.02 Hypoxemia
CPT/HCPCS: 99213

== ENCOUNTER → 2023-12-27 08:53 | Outpatient (BNVA) | payer OTHER, SELFPAY | PROVIDERS: Visit Provider Internal Medicine | DX: Z09 Encounter for follow-up examination after completed treatment for conditions other than malignant neoplasm (principal); J44.1 Chronic obstructive pulmonary disease with (acute) exacerbation; R09.02 Hypoxemia; Z99.81 Dependence on supplemental oxygen | CPT/HCPCS: 99212 ==

== ENCOUNTER 2024-01-03 05:59 | Outpatient (REF) | payer OTHER, SELFPAY ==
[2024-01-03 07:09] LABS: Hematocrit 41.2 % (37.0-47.0); Hemoglobin 13.3 g/dl (12.0-16.0); Mean Corpuscular HGB Conc 32.3 g/dl (31.0-35.0); Mean Corpuscular Hemoglobin 31.3 pg (27.0-33.0); Mean Corpuscular Volume 96.9 fL (80.0-98.0); Mean Platelet Volume 11.1 fL (9.4-12.3); Platelet Count 206 X10*3/uL (160-400); Red Blood Count 4.25 X10*6/uL (4.20-5.50); Red Cell Distribution Width 13.1 % (11.0-16.0); White Blood Count 9.7 X10*3/uL (4.8-10.8)
[2024-01-03 07:49] LABS: Alanine Aminotransferase 11 U/L (0-31); Albumin Level 3.9 g/dL (3.5-5.0); Alkaline Phosphatase 89 U/L (39-117); Anion Gap 11 (12-20); Aspartate Amino Transferase 12 U/L (5-31); Bilirubin Direct 0.2 mg/dL (0.0-0.5); Bilirubin Total 0.5 mg/dL (0.0-1.0); Blood Urea Nitrogen 21 mg/dL (9-16); Calcium 9.5 mg/dL (8.4-10.2); Carbon Dioxide 33 mmol/L (22-29); Chloride 103 mmol/L (96-108); Cholesterol 206 mg/dL (<200); Estimated Glomerular Filt Rate > 60; Glucose Random 108 mg/dL (60-115); HDL Cholesterol 104 mg/dL (>40); LDL Cholesterol Calculated 92 mg/dL (<100); Sodium 143 mmol/L (135-145); Total Protein 6.7 g/dL (6.5-8.0); Triglycerides 50 mg/dL (<150)
[2024-01-03 08:06] LABS: Thyroid Stimulating Hormone 0.13 uIU/mL (0.32-4.0)
== END 2024-01-03 06:00 | disposition home or self-care (01) ==
LOC: HO.LAB 05:59
PROVIDERS: PCP Internal Medicine; Visit Provider Internal Medicine
DX: J44.9 Chronic obstructive pulmonary disease, unspecified (principal); E03.9 Hypothyroidism, unspecified
CPT/HCPCS: 36415; 80048; 80061; 80076; 84443; 85027

== ENCOUNTER 2024-02-27 13:30 | Outpatient (AMB) | payer OTHER, SELFPAY ==
[2024-02-27 13:32] VITALS: BP 122/62; PULSE 72; O2SAT 90; BMI 28.9
--- NOTE | 2024-02-27 13:32 | A.OFFVIS_ITS ---
Vital Signs 02/27/24 13:32 Height 5 ft 3 in Weight 163 lb 2.273 oz BMI 28.9 BP 122/62 Blood Pressure Location Lt brachial Position Sitting Pulse 72 Pulse Source Doppler Pulse Oximetry (%) 90 L Oxygen Delivery Method Room Air Intake Visit Reasons: Sinus infection Intake Note: Patient is here to follow up on SOB, Sinus congestion, wheezing and coughing for about 1 week now, Patient is currently on 2L of o2. Allergies duloxetine Allergy (Intermediate, Verified 02/27/24 13:46) upset stomach Medication List - Last Reconciled 02/27/24 by Leticia Ferrell MD albuterol sulfate 90 mcg/actuation (Ventolin HFA) 2 puffs inhalation Q4-6H PRN amlodipine 2.5 mg PO DAILY azithromycin 250 mg PO DAILY 4 days buprenorphine-naloxone 8-2 mg 1 film sublingual BID cholecalciferol (vitamin D3) 1,250 mcg PO QWEEK citalopram 20 mg PO DAILY ferrous sulfate 325 mg PO DAILY 90 days fluticasone propion-salmeterol 250-50 mcg/dose (Wixela Inhub) 1 ea PO BID folic acid 1 mg PO DAILY furosemide 20 mg PO DAILY gabapentin 100 mg PO TID Incruse Ellipta 62.5 mcg/actuation (umeclidinium) 2 inhalations PO DAILY NS ipratropium-albuterol 0.5 mg-3 mg(2.5 mg base)/3 mL 3 mL inhalation Q4-6H PRN levothyroxine 150 mcg PO DAILY 90 days metoprolol succinate ER 25 mg PO DAILY 90 days nicotine (polacrilex) 4 mg buccal Q2H PRN prednisone 10 mg PO BID 10 days prednisone 20 mg PO BID 5 days quetiapine 100 mg PO BEDTIME thiamine HCl (vitamin B1) 100 mg (2 x 50 mg) PO DAILY Do you need a note to return to daycare/school/sports/work: No HPI HPI Sinus infection: Details: 68 years old female well known to us with advanced chronic obstructive pulmonary disease. Comes a few days prior to her scheduled visit because for the past 1 week she is having increased cough with increased shortness of breath and wheezing. She denies having had any acute respiratory infection. Yet she is short of breath on minimal exertion and not able to participate in her pulmonary rehab program. Using all her medications regularly. FORMERLY [facility], 1928–1983 Medical History Scalp lesion Deafness in right ear COPD exacerbation Substance use disorder Acquired hypothyroidism Generalized anxiety disorder Hypoxemia COPD (chronic obstructive pulmonary disease) Hypoxemia COPD (chronic obstructive pulmonary disease) Surgical History Hx of surgical procedure (~10/06/23) History of hip replacement Family History Father No problems noted. Mother No problems noted. Other Mental health disorder Substance use disorder Social History Housing: House Alcohol intake: never Patient Tobacco Use Status: Former Tobacco user Tobacco use type: Cigarette e-Cigarette/Vaping Use: Never Used Second Hand Smoke Exposure: No service: No Current occupational status: retired Cognitive needs: No Hearing needs: Yes (hearing aides) Vision needs: Yes (Glasses) Review of Systems Const All systems reviewed & are unremarkable except as noted in HPI and below Eyes Reports no additional complaints ENT Reports no additional complaints Card Denies chest pain, Denies irregular heart rhythm and Denies leg edema Resp Reports as per HPI GI Reports no additional complaints Reports no additional complaints Musc Reports back pain (mild ) and Reports muscle weakness (General weakness) Skin/Breast Reports system reviewed and no additional complaints, except as documented Neuro Reports no additional complaints Psych Reports no additional complaints Endo Reports no additional complaints Physical Exam Vital Signs: Last Vital Signs Pulse 72 02/27/24 13:32 BP 122/62 02/27/24 13:32 Pulse Ox 90 L 02/27/24 13:32 Oxygen Delivery Method Room Air 02/27/24 13:32 BMI result Body Mass Index 28.9 Const General: comfortable, no acute distress, alert and awake Orientation/consciousness: patient oriented x3 HEENT Head: Yes normal to inspection General nose exam: No nasal polyps present and No nasal discharge present Face and sinus: Yes sinuses nontender Mouth: oropharynx normal Throat: Yes posterior oropharynx normal Eyes General: appearance normal, both eyes and all related structures Neck Neck: Yes normal visual inspection, Yes no lymphadenopathy, Yes trachea midline and Yes no JVD Thyroid: Thyroid normal Chest Chest palpation & inspection: normal inspection of the chest, normal palpation of entire chest wall and no tenderness Resp Other: Percussion note hyper-resonant, breath sounds are distant with prolonged expiratory phase. She does have expiratory wheezes on both sides, no crepitations . Cardio Palpation: normal PMI Rate: regular rate Rhythm: regular rhythm Heart sounds: no gallops and no murmurs GI Palpation (GI): Soft to palpation, nontender, No hepatosplenomegaly present and no masses Auscultation: normal bowel sounds Back/Spine/Pelvis Thoracic/Lumbar Spine: thoracic and lumbar spine normal to inspection and thoraco-lumbar ROM limited Skin General skin exam: no rashes or lesions noted Neuro General: patient oriented x3 and no focal motor deficits Cranial nerves: Yes CN's II-XII intact bilaterally Extrem General: Yes normal to inspection, Yes no clubbing, cyanosis or edema and Yes no calf tenderness Psych Appearance: grossly normal and well kempt Speech and movement: Normal speech and movement present Assessment & Plan Assessment & Plan (1) COPD exacerbation: Comment: 68 YEARS OLD FEMALE A KNOWN CASE OF ADVANCED CHRONIC OBSTRUCTIVE PULMONARY DISEASE WITH CHRONIC RESPIRATORY FAILURE SHE IS PRONE TO HAVE FREQUENT ACUTE EXACERBATIONS DUE TO ACUTE VIRAL/BACTERIAL RESPIRATORY INFECTIONS. CURRENTLY SHE HAS INCREASED SYMPTOMS PROBABLY DUE TO ENVIRONMENTAL CHANGES. Code(s): J44.1 - Chronic obstructive pulmonary disease with (acute) exacerbation Category: Medical Plan: ADD PREDNISONE 20 MG B.I.D. FOR 5 DAYS Z-TAMMY. CONTINUE WIXELA 250-51 INHALATION B.I.D.. INCRUSE ELLIPTA. 1 INHALATION DAILY DUONEB UPDRAFTS T.I.D.. ALBUTEROL HFA 2 PUFFS Q 6 HOURS P.R.N.. (2) Hypoxemia: Comment: SHE DOES HAVE HYPOXEMIA AND MILD HYPERCAPNIA , DUE TO ADVANCED COPD. IT IS WELL TREATED WITH OXYGEN 2 L/MINUTES . Code(s): R09.02 - Hypoxemia Category: Medical Plan: CONTINUE O2 2 L/MINUTE Coding Level of Care Code Est Pt Level 3 (65420) Diagnoses COPD exacerbation J44.1 Hypoxemia R09.02
== END 2024-02-27 13:46 | disposition home or self-care (01) ==
PROVIDERS: PCP Internal Medicine; Visit Provider Internal Medicine
DX: J44.1 Chronic obstructive pulmonary disease with (acute) exacerbation (principal); R09.02 Hypoxemia
CPT/HCPCS: 99213

== ENCOUNTER → 2024-02-27 13:30 | Outpatient (BNVA) | payer OTHER, SELFPAY | PROVIDERS: PCP Internal Medicine; Visit Provider Internal Medicine | DX: J44.1 Chronic obstructive pulmonary disease with (acute) exacerbation (principal); R09.02 Hypoxemia; G47.33 Obstructive sleep apnea (adult) (pediatric); Z99.81 Dependence on supplemental oxygen | CPT/HCPCS: 99212 ==

== ENCOUNTER 2024-03-27 08:28 | Outpatient (AMB) | payer OTHER, SELFPAY ==
[2024-03-27 08:44] VITALS: BP 110/70; PULSE 75; O2SAT 91; BMI 28.9
--- NOTE | 2024-03-27 08:44 | A.OFFVIS_ITS ---
Vital Signs 03/27/24 08:44 Height 5 ft 3 in Weight 163 lb BMI 28.9 BP 110/70 Blood Pressure Location Lt brachial Position Sitting Pulse 75 Pulse Source Pulse Oximeter Pulse Oximetry (%) 91 L Oxygen Delivery Method Nasal Cannula Oxygen Flow Rate 2 Intake Visit Reasons: Wheezing Intake Note: pt is here for sick visit, wheezing, coughing no production, right after she finished prednisone it all came back, dry nasal passages, and very dry throat Allergies duloxetine Allergy (Intermediate, Verified 03/27/24 08:50) upset stomach Medication List - Last Reconciled 03/27/24 by Leticia Ferrell MD albuterol sulfate 90 mcg/actuation (Ventolin HFA) 2 puffs inhalation Q4-6H PRN amlodipine 2.5 mg PO DAILY azithromycin 250 mg PO DAILY 4 days buprenorphine-naloxone 8-2 mg 1 film sublingual BID cholecalciferol (vitamin D3) 1,250 mcg PO QWEEK citalopram 20 mg PO DAILY ferrous sulfate 325 mg PO DAILY 90 days fluticasone propion-salmeterol 250-50 mcg/dose (Wixela Inhub) 1 ea PO BID folic acid 1 mg PO DAILY furosemide 20 mg PO DAILY gabapentin 100 mg PO TID Incruse Ellipta 62.5 mcg/actuation (umeclidinium) 2 inhalations PO DAILY NS ipratropium-albuterol 0.5 mg-3 mg(2.5 mg base)/3 mL 3 mL inhalation Q4-6H PRN levothyroxine 150 mcg PO DAILY 90 days metoprolol succinate ER 25 mg PO DAILY 90 days nicotine (polacrilex) 4 mg buccal Q2H PRN prednisone 5 mg PO DIRECTED 14 days quetiapine 100 mg PO BEDTIME thiamine HCl (vitamin B1) 100 mg (2 x 50 mg) PO DAILY Do you need a note to return to daycare/school/sports/work: No HPI HPI Wheezing: Details: THIS 68 YEARS OLD FEMALE WITH ADVANCED CHRONIC OBSTRUCTIVE PULMONARY DISEASE, WHO IS O2 DEPENDENT, IS ON MAXIMUM MEDICAL TREATMENT, AND ALSO ATTENDS PULMONARY REHAB. RECENTLY HAS BEEN TREATED FOR LOW-GRADE ACUTE EXACERBATIONS, WITH SHORT COURSES OF PREDNISONE AND AZITHROMYCIN. SHE FEELS BETTER WHEN SHE TAKES PREDNISONE AND THE ANTIBIOTIC BUT THEN SHE STARTS HAVING SCRATCHY FEELING IN THE THROAT INCREASED COUGH AND CAN NOT EXPECTORATES PHLEGM. DENIES ANY FEVER AND CHILLS. SHE REMAINS MORE SHORT OF BREATH AND WEAK AND HAS NOT BEEN ABLE TO PARTICIPATE IN THE REHAB SESSIONS. [facility] Medical History Scalp lesion Deafness in right ear COPD exacerbation Substance use disorder Acquired hypothyroidism Generalized anxiety disorder Hypoxemia COPD (chronic obstructive pulmonary disease) Hypoxemia COPD (chronic obstructive pulmonary disease) Surgical History Hx of surgical procedure (~10/06/23) History of hip replacement Family History Father No problems noted. Mother No problems noted. Other Mental health disorder Substance use disorder Social History Housing: House Alcohol intake: never Patient Tobacco Use Status: Former Tobacco user Tobacco use type: Cigarette e-Cigarette/Vaping Use: Never Used Second Hand Smoke Exposure: No service: No Current occupational status: retired Cognitive needs: No Hearing needs: Yes (hearing aides) Vision needs: Yes (Glasses) Review of Systems Const All systems reviewed & are unremarkable except as noted in HPI and below Eyes Reports no additional complaints ENT Reports no additional complaints Card Denies chest pain, Denies irregular heart rhythm and Denies leg edema Resp Reports as per HPI GI Reports no additional complaints Reports no additional complaints Musc Reports back pain (mild ) and Reports muscle weakness (General weakness) Skin/Breast Reports system reviewed and no additional complaints, except as documented Neuro Reports no additional complaints Psych Reports no additional complaints Endo Reports no additional complaints Physical Exam Vital Signs: Last Vital Signs Pulse 75 03/27/24 08:44 BP 110/70 03/27/24 08:44 Pulse Ox 91 L 03/27/24 08:44 Oxygen Delivery Method Nasal Cannula 03/27/24 08:44 Oxygen Flow Rate 2 03/27/24 08:44 BMI result Body Mass Index 28.9 Const General: comfortable, no acute distress, alert and awake Orientation/consciousness: patient oriented x3 HEENT Head: Yes normal to inspection General nose exam: No nasal polyps present and No nasal discharge present Face and sinus: Yes sinuses nontender Mouth: oropharynx normal and no other (NO THRUSH NOTED) Throat: Yes posterior oropharynx normal Eyes General: appearance normal, both eyes and all related structures Neck Neck: Yes normal visual inspection, Yes no lymphadenopathy, Yes trachea midline and Yes no JVD Thyroid: Thyroid normal Chest Chest palpation & inspection: normal inspection of the chest, normal palpation of entire chest wall and no tenderness Resp Other: Percussion note hyper-resonant, breath sounds are distant with prolonged expiratory phase. She does have expiratory wheezes on both sides, no crepitations . Cardio Palpation: normal PMI Rate: regular rate Rhythm: regular rhythm Heart sounds: no gallops and no murmurs GI Palpation (GI): Soft to palpation, nontender, No hepatosplenomegaly present and no masses Auscultation: normal bowel sounds Back/Spine/Pelvis Thoracic/Lumbar Spine: thoracic and lumbar spine normal to inspection and thoraco-lumbar ROM limited Skin General skin exam: no rashes or lesions noted Neuro General: patient oriented x3 and no focal motor deficits Cranial nerves: Yes CN's II-XII intact bilaterally Extrem General: Yes normal to inspection, Yes no clubbing, cyanosis or edema and Yes no calf tenderness Psych Appearance: grossly normal and well kempt Speech and movement: Normal speech and movement present Assessment & Plan Assessment & Plan (1) COPD exacerbation: Comment: 68 YEARS OLD FEMALE A KNOWN CASE OF ADVANCED CHRONIC OBSTRUCTIVE PULMONARY DISEASE WITH CHRONIC RESPIRATORY FAILURE SHE IS PRONE TO HAVE FREQUENT ACUTE EXACERBATIONS DUE TO ACUTE VIRAL/BACTERIAL R ESPIRATORY INFECTIONS. CURRENTLY SHE HAS INCREASED SYMPTOMS PROBABLY DUE TO ENVIRONMENTAL CHANGES, AND MAY BE LOW-GRADE BRONCHITIS. Code(s): J44.1 - Chronic obstructive pulmonary disease with (acute) exacerbation Category: Medical Plan: CONTINUE ALL THE REGULAR REGIMEN INCLUDING WIXELA 250 MG B.I.D., DUONEB UPDRAFTS Q 6 HOURS WHILE AWAKE, INCRUSE ELLIPTA 1 INHALATION DAILY, ALBUTEROL HFA 2 PUFFS Q 6 HOURS P.R.N. WHEN OUTDOORS. BECAUSE OF ONGOING BRONCHITIS AND LOW-GRADE EXACERBATION. I WOULD TREAT HER WITH PREDNISONE 5 MG ON ALTERNATE DAYS, AND AZITHROMYCIN 250 MG 3 DAYS A WEEK. ADVISED TO DO STEAM INHALATIONS 2 OR 3 TIMES A DAY. (2) Hypoxemia: Comment: SHE DOES HAVE HYPOXEMIA AND MILD HYPERCAPNIA , DUE TO ADVANCED COPD. IT IS WELL TREATED WITH OXYGEN 2 L/MINUTES . Code(s): R09.02 - Hypoxemia Category: Medical Plan: CONTINUE O2 2 L/MINUTE 24 HOURS A DAY Medications: New prednisone 5 mg PO Q OTHER DAY 14 tabs 3RF COPD EXCERBATION 28 days Changed From azithromycin start on day 2 of therapy 250 mg PO DAILY 4 days 4 tabs 0RF To azithromycin start on day 2 of therapy 250 mg PO 3XW 12 tabs 5RF 28 days Coding Level of Care Code Est Pt Level 3 (84060) Diagnoses COPD exacerbation J44.1 Hypoxemia R09.02
== END 2024-03-27 09:01 | disposition home or self-care (01) ==
PROVIDERS: PCP Internal Medicine; Visit Provider Internal Medicine
DX: J44.1 Chronic obstructive pulmonary disease with (acute) exacerbation (principal); R09.02 Hypoxemia
CPT/HCPCS: 99213

== ENCOUNTER → 2024-03-27 08:28 | Outpatient (BNVA) | payer OTHER, SELFPAY | PROVIDERS: PCP Internal Medicine; Visit Provider Internal Medicine | DX: J44.1 Chronic obstructive pulmonary disease with (acute) exacerbation (principal); R09.02 Hypoxemia; Z99.81 Dependence on supplemental oxygen | CPT/HCPCS: 99212 ==

== ENCOUNTER 2024-04-16 07:41 | Outpatient (AMB) | payer OTHER, SELFPAY ==
--- NOTE | 2024-04-16 08:23 | A.OFFPC_ITS ---
Vital Signs 04/16/24 08:25 Height 5 ft 3 in Weight 167 lb 6 oz BMI 29.6 BP 130/74 Blood Pressure Location Lt brachial Position Sitting Pulse 71 Pulse Source Pulse Oximeter Pulse Oximetry (%) 90 L Oxygen Delivery Method Room Air Intake Visit Reasons: 3 month f/u ernesto from 03/21 Intake Note: Patient is here to follow up on COPD, Hypothyroidism, . 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: Not Required per policy Accompanied by: Self / Same As Patient Allergies duloxetine Allergy (Intermediate, Verified 04/16/24 09:09) upset stomach Medication List - Last Reconciled 04/16/24 by Preethi Granado PA-C albuterol sulfate 90 mcg/actuation (Ventolin HFA) 2 puffs inhalation Q4-6H PRN amlodipine 2.5 mg PO DAILY atorvastatin 10 mg PO BEDTIME azithromycin 250 mg PO 3XW 28 days buprenorphine-naloxone 8-2 mg 1 film sublingual BID cholecalciferol (vitamin D3) 1,250 mcg PO QWEEK citalopram 20 mg PO DAILY ferrous sulfate 325 mg PO DAILY 90 days fluticasone propion-salmeterol 250-50 mcg/dose (Wixela Inhub) 1 ea PO BID folic acid 1 mg PO DAILY furosemide 20 mg PO DAILY gabapentin 100 mg PO TID Incruse Ellipta 62.5 mcg/actuation (umeclidinium) 2 inhalations PO DAILY NS ipratropium-albuterol 0.5 mg-3 mg(2.5 mg base)/3 mL 3 mL inhalation Q4-6H PRN levothyroxine 150 mcg PO DAILY 90 days metoprolol succinate ER 25 mg PO DAILY 90 days nicotine (polacrilex) 4 mg buccal Q2H PRN prednisone 5 mg PO DIRECTED 14 days prednisone 5 mg PO Q OTHER DAY 28 days quetiapine 100 mg PO BEDTIME thiamine HCl (vitamin B1) 100 mg (2 x 50 mg) PO DAILY Tobacco use date assessed: 04/16/24 Fall risk assessment: No Falls in past year Last assessed Fall Risk: 04/16/24 Dental Screening Dental Screen Date: 12/08/23 [facility] Medical History Encounter for colorectal cancer screening using Cologuard test (~02/01/22) Scalp lesion Deafness in right ear COPD exacerbation Substance use disorder Acquired hypothyroidism Generalized anxiety disorder Hypoxemia COPD (chronic obstructive pulmonary disease) Hypoxemia COPD (chronic obstructive pulmonary disease) Surgical History Hx of surgical procedure (~10/06/23) History of hip replacement Family History Father No problems noted. Mother No problems noted. Other Mental health disorder Substance use disorder Social History Housing: House Alcohol intake: never Patient Tobacco Use Status: Former Tobacco user Tobacco use type: Cigarette e-Cigarette/Vaping Use: Never Used Second Hand Smoke Exposure: No service: No Current occupational status: retired Cognitive needs: No Hearing needs: Yes (hearing aides) Vision needs: Yes (Glasses) Questionnaire Thrive Questionnaire Date Thrive assessed: 12/08/23 ALLY-7 AMB Questionnaire ALLY-7 Date ALLY - 7 assessed: 12/08/23 Source: Developed by Drs. David García, Jennifer Crouch, Brendan Taylor and colleagues, with an educational corby from [employer]. Physical exam (Primary Care) Vital Signs: Last Vital Signs Pulse 71 04/16/24 08:25 BP 130/74 04/16/24 08:25 Pulse Ox 90 L 04/16/24 08:25 Oxygen Delivery Method Room Air 04/16/24 08:25 BMI result Body Mass Index 29.6 Tobacco/Smoking Status: Tobacco use Status Tobacco use date assessed 04/16/24 04/16/24 08:29 Patient Tobacco Use Status Former Tobacco user 04/16/24 08:29 Tobacco use type Cigarette 04/16/24 08:29 e-Cigarette/Vaping Use Never Used 04/16/24 08:29 Thrive Assessment: Date of Thrive Assessment Date Thrive assessed 12/08/23 04/16/24 08:29 Office Procedures Flu Questionnaire Does the patient have a severe egg allergy?: No Does the patient have severe life threatening allergies?: No Does the patient have a fever or illness today?: No Has the patient ever had Guillain-[place] Syndrome?: No Has the patient ever had any past reaction to a flu shot?: No Immunizations Fluarix Triv [id number] (PF) 45 mcg (15 mcg x 3)/0.5 mL IM syringe Performing Provider: Jadon Orantes MD [facility] Administered by: Maria Elena Mcallister CMA on 04/16/24 08:48 Dose Route Admin Location Dispensed Lot Number Expiration Date 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00 Assessment & Plan Assessment & Plan (1) COPD (chronic obstructive pulmonary disease): Comment: She has long-standing diagnosis of COPD. She has recovered from her recent acute exacerbation and is back to baseline. Code(s): J44.9 - Chronic obstructive pulmonary disease, unspecified Category: Medical (2) Acquired hypothyroidism: Code(s): E03.9 - Hypothyroidism, unspecified Category: Medical (3) Vitamin B12 deficiency: Code(s): E53.8 - Deficiency of other specified B group vitamins Category: Medical (4) Encounter for screening mammogram for breast cancer: Code(s): Z12.31 - Encounter for screening mammogram for malignant neoplasm of breast Category: Medical (5) Substance use disorder: Code(s): F19.90 - Other psychoactive substance use, unspecified, uncomplicated Category: Medical (6) Generalized anxiety disorder: Code(s): F41.1 - Generalized anxiety disorder Category: Medical (7) Hypercholesteremia: Code(s): E78.00 - Pure hypercholesterolemia, unspecified Category: Medical Plan Plan - Fasting blood work ordered - Mammogram ordered - Patient will be started on atorvastatin 10 mg to be taken at bedtime, due to 10.3% ASCVD risk 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 Orders: Orders Influenza [id number] Immunization Today Jadon Orantes MD Z23 - Encounter for immunization Comprehensive [place]. Panel Fast Today Preethi Granado PA-C E03.9 - Hypothyroidism, unspecified, E53.8 - Deficiency of other specified B group vitamins, J44.9 - Chronic obstructive pulmonary disease, unspecified Vitamin B12 and Folate Today Preethi Granado PA-C E03.9 - Hypothyroidism, unspecified, E53.8 - Deficiency of other specified B group vitamins, J44.9 - Chronic obstructive pulmonary disease, unspecified B Type Natriuretic Peptide Today Preethi Granado PA-C R60.0 - Localized edema Complete Blood Count Auto Diff Today Preethi Granado PA-C E03.9 - Hypothyroidism, unspecified, E53.8 - Deficiency of other specified B group vitamins, J44.9 - Chronic obstructive pulmonary disease, unspecified Lipid Panel Today Preethi Granado PA-C E03.9 - Hypothyroidism, unspecified, E53.8 - Deficiency of other specified B group vitamins, J44.9 - Chronic obstructive pulmonary disease, unspecified Magnesium Today Preethi Granado PA-C E03.9 - Hypothyroidism, unspecified, E53.8 - Deficiency of other specified B group vitamins, J44.9 - Chronic obstructive pulmonary disease, unspecified Hemoglobin A1c Today Preethi Granado PA-C E11.9 - Type 2 diabetes mellitus without complications Liver Panel Today Preethi Granado PA-C E03.9 - Hypothyroidism, unspecified, E53.8 - Deficiency of other specified B group vitamins, J44.9 - Chronic obstructive pulmonary disease, unspecified Vitamin D 25-OH Total Today Preethi Granado PA-C E03.9 - Hypothyroidism, unspecified, E53.8 - Deficiency of other specified B group vitamins, J44.9 - Chronic obstructive pulmonary disease, unspecified TSH reflex Free T4 Today Preethi Granado PA-C E03.9 - Hypothyroidism, unspecified, E53.8 - Deficiency of other specified B group vitamins, J44.9 - Chronic obstructive pulmonary disease, unspecified MM screening mammo BI Today Preethi Granado PA-C Z12.31 - Encounter for screening mammogram for malignant neoplasm of breast Medications: New atorvastatin 10 mg PO BEDTIME 30 tabs 2RF hyperlipidemia Preethi Granado PA-C Scribe Plan - Not visible on output: History of Present Illness The patient is a 68-year-old female presenting with a three-month follow-up for chronic obstructive pulmonary disease (COPD), hypothyroidism, and associated chronic conditions. She reports experiencing an acute exacerbation of COPD in December, during which she visited the emergency room due to difficulty breathing. During the ER visit, she received intravenous prednisone and was subsequently discharged the same day. The patient states she typically uses oxygen at night and as needed during the day, such as when engaging in activities like house cleaning. She reports episodes of congested breathing but no fever, chest pain, or wheezing. Currently, she manages her COPD with medications including albuterol and reports no recent exacerbations requiring ER visits. The patient's history of hypothyroidism is managed with a daily dose of 150 micrograms of levothyroxine. Laboratory tests done previously indicated fluctuating thyroid function, and a recheck of thyroid function is planned. The patient takes her levothyroxine on an empty stomach but does not wait an hour before eating or taking other medications, which may account for the thyroid fluctuations. Past medical history includes hypertension controlled with medication. The patient is on multiple medications, including amlodipine and metoprolol for hypertension, and gabapentin and suboxone for additional management. The patient reports hypercholesterolemia, with lab results showing a cholesterol level of 206 and LDL of 92. She is not currently on cholesterol medication. A low-dose statin therapy has been discussed, pending further consultation. She also has a history of osteopenia with normal bone density tests in 2022. The patient reports using water pills to manage leg edema, which is currently well controlled. Social History - Reports enjoying a diet including bread, pasta, rice, fruits, salads, and nuts. - Uses oxygen therapy, primarily at night. - No reported substance abuse. - Engages in light physical activities like house cleaning. Review of Systems - Respiratory: Reports congested breathing. - Neurological: Denies headaches or dizziness. - Cardiovascular: Denies chest pain or palpitations. - Gastrointestinal: Denies black or bloody stools. - General: Denies fever. Physical Exam Appearance: Alert. Oriented X3. No acute distress. Head: Normal external exam. Normocephalic. Atraumatic. Eyes: Pupils are equal, round, and reactive to light. Extraocular movements intact. Conjunctiva and sclera normal. Eyelids normal. Ears: External auditory canal normal. Tympanic membranes normal. Throat: Pharynx normal. Uvula midline. Moist mucous membranes. Neck: Normal inspection. Neck supple. Full range of motion. No adenopathy. Thyroid Normal. No meningeal signs. No neck mass noted. Cardiovascular: Normal heart rate and rhythm. Heart sound normal. No murmurs noted. Pulses normal throughout. Respiratory: Nasal cannula in place. No respiratory distress. Painless inspiration. Breath sounds normal. No wheezes/rales/rhonchi noted. Chest nontender. No accessory muscle usage noted or decreased air movement noted. Abdomen: Soft and nontender. No distention noted. No organomegaly noted. No visible injury noted. Back: No costovertebral angle tenderness. Full range of motion noted. Skin: Skin warm and dry. Normal skin color. Normal skin turgor. No rashes/lesions/lacerations noted. Extremities: No lower extremity edema. Extremities exhibit normal range of motion. Extremities nontender. Neuro: Oriented X 3. No motor deficit. No sensory deficit. Results - Labs: Cholesterol levels are elevated patient has 10.3% ASCVD risk cyber defense incident responder; thyroid function tests indicate fluctuations. - Osteopenia: Bone density tests normal in 2022. - Cologuard: Negative as of January 31, 2022. Plan - Fasting blood work ordered - Mammogram ordered - Patient will be started on atorvastatin 10 mg to be taken at bedtime, due to 10.3% ASCVD risk 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 Patient was informed and verbally consented to the use of an ambient scribe for clinic note documentation during this visit. Discussion Notes During our conversation, the patient was informed about the importance of rechecking thyroid function due to fluctuating levels likely related to medication intake timing. We discussed potential low-dose statin therapy for managing slightly elevated cholesterol levels, with emphasis on balancing it with her current medication regimen. We agreed on administering the flu vaccine as part of seasonal preventative care. For her COPD management, it was essential to continue using oxygen as prescribed and monitor symptoms of congested breathing. Pulmonology follow-up is already scheduled with Dr. Hairston on April 26. We also emphasized the importance of calling in for a mammogram to complete this aspect of her preventative care. Patient Instructions - Recheck thyroid function following the amended medication intake routine. - Commence low-dose cholesterol medication as prescribed. - Continue regular COPD medication and oxygen therapy as advised. - Receive flu vaccination today. - Call to schedule a mammogram. - Maintain a diet incorporating more fruits, salads, and nuts. - Follow up with Pulmonology on April 26.
[2024-04-16 08:25] VITALS: BP 130/74; PULSE 71; O2SAT 90; BMI 29.6
== END 2024-04-16 08:56 | disposition home or self-care (01) ==
PROVIDERS: PCP Internal Medicine; Visit Provider Internal Medicine
DX: J44.9 Chronic obstructive pulmonary disease, unspecified (principal); E03.9 Hypothyroidism, unspecified; E53.8 Deficiency of other specified B group vitamins; Z12.31 Encounter for screening mammogram for malignant neoplasm of breast; F19.90 Other psychoactive substance use, unspecified, uncomplicated; F41.1 Generalized anxiety disorder; E78.00 Pure hypercholesterolemia, unspecified; Z23 Encounter for immunization

== ENCOUNTER → 2024-04-16 07:41 | Outpatient (BNVA) | payer OTHER, SELFPAY | PROVIDERS: PCP Internal Medicine; Visit Provider Internal Medicine | DX: Z23 Encounter for immunization (principal); J44.9 Chronic obstructive pulmonary disease, unspecified; E03.9 Hypothyroidism, unspecified; E53.8 Deficiency of other specified B group vitamins; F19.90 Other psychoactive substance use, unspecified, uncomplicated; F41.1 Generalized anxiety disorder; E78.00 Pure hypercholesterolemia, unspecified | CPT/HCPCS: 90471; 90656; 99212 ==

== ENCOUNTER 2024-04-26 08:41 | Outpatient (AMB) | payer OTHER, SELFPAY ==
[2024-04-26 09:13] VITALS: BP 130/68; PULSE 68; O2SAT 86; BMI 28.1
--- NOTE | 2024-04-26 09:13 | MHC.OFFVIS ---
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 Allergies duloxetine Allergy (Intermediate, Verified 04/26/24 09:24) upset stomach Medication List - Last Reconciled 04/26/24 by Leticia Ferrell MD albuterol sulfate 90 mcg/actuation (Ventolin HFA) 2 puffs inhalation Q4-6H PRN amlodipine 2.5 mg PO DAILY atorvastatin 10 mg PO BEDTIME azithromycin 250 mg PO 3XW 28 days buprenorphine-naloxone 8-2 mg 1 film sublingual BID cholecalciferol (vitamin D3) 1,250 mcg PO QWEEK citalopram 20 mg PO DAILY ferrous sulfate 325 mg PO DAILY 90 days fluticasone propion-salmeterol 250-50 mcg/dose (Wixela Inhub) 1 ea PO BID folic acid 1 mg PO DAILY furosemide 20 mg PO DAILY gabapentin 100 mg PO TID Incruse Ellipta 62.5 mcg/actuation (umeclidinium) 2 inhalations PO DAILY NS ipratropium-albuterol 0.5 mg-3 mg(2.5 mg base)/3 mL 3 mL inhalation Q4-6H PRN levothyroxine 150 mcg PO DAILY 90 days metoprolol succinate ER 25 mg PO DAILY 90 days nicotine (polacrilex) 4 mg buccal Q2H PRN prednisone 5 mg PO Q OTHER DAY 28 days quetiapine 100 mg PO BEDTIME thiamine HCl (vitamin B1) 100 mg (2 x 50 mg) PO DAILY Do you need a note to return to daycare/school/sports/work: No HPI HPI COPD: Details: Monica comes back for follow-up. This time she is at her baseline and does not have any acute infection. She is using all her medications. When she walks around she gets short of breath especially if she does not veer the O2 cannula. Still has intermittent cough with thick mucus. She is back in pulmonary rehab program. [facility] Medical History History of mammogram (~01/01/22) H/O bone density study (~11/16/22) Encounter for colorectal cancer screening using Cologuard test (~02/01/22) Scalp lesion Deafness in right ear COPD exacerbation Substance use disorder Acquired hypothyroidism Generalized anxiety disorder Hypoxemia COPD (chronic obstructive pulmonary disease) Hypoxemia COPD (chronic obstructive pulmonary disease) Surgical History Hx of surgical procedure (~10/06/23) History of hip replacement Family History Father No problems noted. Mother No problems noted. Other Mental health disorder Substance use disorder Social History Housing: House Alcohol intake: never Patient Tobacco Use Status: Former Tobacco user Tobacco use type: Cigarette e-Cigarette/Vaping Use: Never Used Second Hand Smoke Exposure: No service: No Current occupational status: retired Cognitive needs: No Hearing needs: Yes (hearing aides) Vision needs: Yes (Glasses) Review of Systems Const All systems reviewed & are unremarkable except as noted in HPI and below Eyes Reports no additional complaints ENT Reports no additional complaints Card Denies chest pain, Denies irregular heart rhythm and Denies leg edema Resp Reports as per HPI GI Reports no additional complaints Reports no additional complaints Musc Reports back pain (mild ) and Reports muscle weakness (General weakness) Skin/Breast Reports system reviewed and no additional complaints, except as documented Neuro Reports no additional complaints Psych Reports no additional complaints Endo Reports no additional complaints Physical Exam Vital Signs: Last Vital Signs Pulse 68 04/26/24 09:13 BP 130/68 04/26/24 09:13 Pulse Ox 86 L 04/26/24 09:13 Oxygen Delivery Method Room Air 04/26/24 09:13 BMI result Body Mass Index 28.1 Const General: comfortable, no acute distress, alert and awake Orientation/consciousness: patient oriented x3 HEENT Head: Yes normal to inspection General nose exam: No nasal polyps present and No nasal discharge present Face and sinus: Yes sinuses nontender Mouth: oropharynx normal and no other (NO THRUSH NOTED) Throat: Yes posterior oropharynx normal Eyes General: appearance normal, both eyes and all related structures Neck Neck: Yes normal visual inspection, Yes no lymphadenopathy, Yes trachea midline and Yes no JVD Thyroid: Thyroid normal Chest Chest palpation & inspection: normal inspection of the chest, normal palpation of entire chest wall and no tenderness Resp Other: Percussion note hyper-resonant, breath sounds are distant with prolonged expiratory phase. Lungs are clear today and no wheezes rhonchi or crepitations are heard. Cardio Palpation: normal PMI Rate: regular rate Rhythm: regular rhythm Heart sounds: no gallops and no murmurs GI Palpation (GI): Soft to palpation, nontender, No hepatosplenomegaly present and no masses Auscultation: normal bowel sounds Back/Spine/Pelvis Thoracic/Lumbar Spine: thoracic and lumbar spine normal to inspection and thoraco-lumbar ROM limited Skin General skin exam: no rashes or lesions noted Neuro General: patient oriented x3 and no focal motor deficits Cranial nerves: Yes CN's II-XII intact bilaterally Extrem General: Yes normal to inspection, Yes no clubbing, cyanosis or edema and Yes no calf tenderness Psych Appearance: grossly normal and well kempt Speech and movement: Normal speech and movement present Assessment & Plan Assessment & Plan (1) COPD (chronic obstructive pulmonary disease): Comment: She has long-standing diagnosis of COPD. She has recovered from her recent acute exacerbation and is back to baseline. Code(s): J44.9 - Chronic obstructive pulmonary disease, unspecified Category: Medical Plan: Continue : Wixela 250-51 inhalation b.i.d. Incruse Ellipta 1 inhalation daily. Albuterol HFA 2 puffs Q 6 hours p.r.n. when outdoors Ipratropium-albuterol solution in the nebulizer Q 6 hours p.r.n. when at home. Azithromycin 250 mg 3 days a week. (2) Hypoxemia: Comment: SHE DOES HAVE HYPOXEMIA AND MILD HYPERCAPNIA , DUE TO ADVANCED COPD. IT IS WELL TREATED WITH OXYGEN 2 L/MINUTES . GETS MORE SHORT OF BREATH ON EXERTION IF SHE DOES NOT USE O2. Code(s): R09.02 - Hypoxemia Category: Medical Plan: ADVISED TO USE O2 2 L/MINUTE AT NIGHT WHEN SLEEPING, USE 2 L/MINUTE P.R.N. DURING THE DAYTIME WHEN AT HOME. WHEN GOING OUTDOORS OR DOING ANY PHYSICAL WORK SHE SHOULD USE PORTABLE OXYGEN 2 L/MINUTE CONTINUE DOING DEEP BREATHING EXERCISES WITH PURSED LIP TECHNIQUE. Medications: Changed From Incruse Ellipta 62.5 mcg/actuation (umeclidinium) 2 inhalations PO DAILY 30 ea 3RF NS J44.9 - Chronic obstructive pulmonary disease, unspecified To Incruse Ellipta 62.5 mcg/actuation (umeclidinium) 2 inhalations PO DAILY 30 days 30 ea 5RF NS J44.9 - Chronic obstructive pulmonary disease, unspecified Coding Level of Care Code Est Pt Level 3 (11355) Diagnoses COPD (chronic obstructive pulmonary disease) J44.9 Hypoxemia R09.02
== END 2024-04-26 09:27 | disposition home or self-care (01) ==
PROVIDERS: PCP Internal Medicine; Visit Provider Internal Medicine
DX: J44.9 Chronic obstructive pulmonary disease, unspecified (principal); R09.02 Hypoxemia
CPT/HCPCS: 99213

== ENCOUNTER → 2024-04-26 08:41 | Outpatient (BNVA) | payer OTHER, SELFPAY | PROVIDERS: PCP Internal Medicine; Visit Provider Internal Medicine | DX: J44.9 Chronic obstructive pulmonary disease, unspecified (principal); R09.02 Hypoxemia | CPT/HCPCS: 99212 ==

== ENCOUNTER 2024-06-21 08:34 | Outpatient (AMB) | payer OTHER, SELFPAY ==
[2024-06-21 08:42] VITALS: BP 118/70; PULSE 82; O2SAT 94; BMI 27.9
--- NOTE | 2024-06-21 08:42 | MHC.OFFVIS ---
Vital Signs 06/21/24 08:42 Height 5 ft 3 in Weight 157 lb 10.088 oz BMI 27.9 BP 118/70 Blood Pressure Location Lt brachial Position Sitting Pulse 82 Pulse Source Pulse Oximeter Pulse Oximetry (%) 94 Oxygen Delivery Method Nasal Cannula Oxygen Flow Rate 2 Intake Visit Reasons: COPD Intake Note: pt is here for follow up and states she is feeling better, she had strep throat, should she be on prednisone 5mg qod, last dose was today. Director Zone Required: No Allergies duloxetine Allergy (Intermediate, Verified 06/21/24 09:01) upset stomach Medication List - Last Reconciled 06/21/24 by Leticia Ferrell MD albuterol sulfate 90 mcg/actuation (Ventolin HFA) 2 puffs inhalation Q4-6H PRN amlodipine 2.5 mg PO DAILY atorvastatin 10 mg PO BEDTIME azithromycin 250 mg PO 3XW 28 days buprenorphine-naloxone 8-2 mg 1 film sublingual BID cholecalciferol (vitamin D3) 1,250 mcg PO QWEEK citalopram 20 mg PO DAILY ferrous sulfate 325 mg PO DAILY 90 days fluticasone propion-salmeterol 250-50 mcg/dose (Wixela Inhub) 1 ea PO BID folic acid 1 mg PO DAILY furosemide 20 mg PO DAILY gabapentin 100 mg PO TID Incruse Ellipta 62.5 mcg/actuation (umeclidinium) 2 inhalations PO DAILY 30 days NS ipratropium-albuterol 0.5 mg-3 mg(2.5 mg base)/3 mL 3 mL inhalation Q4-6H PRN levothyroxine 150 mcg PO DAILY 90 days metoprolol succinate ER 25 mg PO DAILY 90 days nicotine (polacrilex) 4 mg buccal Q2H PRN prednisone 5 mg PO Q OTHER DAY 28 days quetiapine 100 mg PO BEDTIME thiamine HCl (vitamin B1) 100 mg (2 x 50 mg) PO DAILY Do you need a note to return to daycare/school/sports/work: No HPI HPI COPD: Details: This 68 years old very pleasant female with a longstanding history of advanced chronic obstructive pulmonary disease, comes for her routine follow-up visit after 2 months. But about 2 weeks ago she was quite sick, with upper respiratory infection. She took azithromycin for 5 days continuously and also prednisone, and got better. Now she has been without these medications. But continues to use her inhalers and DuoNeb updrafts 3 times a day. She is back in long-term pulmonary rehab program. [facility] Medical History History of mammogram (~01/01/22) H/O bone density study (~11/16/22) Encounter for colorectal cancer screening using Cologuard test (~02/01/22) Scalp lesion Deafness in right ear COPD exacerbation Substance use disorder Acquired hypothyroidism Generalized anxiety disorder Hypoxemia COPD (chronic obstructive pulmonary disease) Hypoxemia COPD (chronic obstructive pulmonary disease) Surgical History Hx of surgical procedure (~10/06/23) History of hip replacement Family History Father No problems noted. Mother No problems noted. Other Mental health disorder Substance use disorder Social History Housing: House Alcohol intake: never Patient Tobacco Use Status: Former Tobacco user Tobacco use type: Cigarette e-Cigarette/Vaping Use: Never Used Second Hand Smoke Exposure: No service: No Current occupational status: retired Cognitive needs: No Hearing needs: Yes (hearing aides) Vision needs: Yes (Glasses) Review of Systems Const All systems reviewed & are unremarkable except as noted in HPI and below Eyes Reports no additional complaints ENT Reports no additional complaints Card Denies chest pain, Denies irregular heart rhythm and Denies leg edema Resp Reports as per HPI GI Reports no additional complaints Reports no additional complaints Musc Reports back pain (mild ) and Reports muscle weakness (General weakness) Skin/Breast Reports system reviewed and no additional complaints, except as documented Neuro Reports no additional complaints Psych Reports no additional complaints Endo Reports no additional complaints Physical Exam Vital Signs: Last Vital Signs Pulse 82 06/21/24 08:42 BP 118/70 06/21/24 08:42 Pulse Ox 94 06/21/24 08:42 Oxygen Delivery Method Nasal Cannula 06/21/24 08:42 Oxygen Flow Rate 2 06/21/24 08:42 BMI result Body Mass Index 27.9 Const General: comfortable, no acute distress, alert and awake Orientation/consciousness: patient oriented x3 HEENT Head: Yes normal to inspection General nose exam: No nasal polyps present and No nasal discharge present Face and sinus: Yes sinuses nontender Mouth: oropharynx normal and no other (NO THRUSH NOTED) Throat: Yes posterior oropharynx normal Eyes General: appearance normal, both eyes and all related structures Neck Neck: Yes normal visual inspection, Yes no lymphadenopathy, Yes trachea midline and Yes no JVD Thyroid: Thyroid normal Chest Chest palpation & inspection: normal inspection of the chest, normal palpation of entire chest wall and no tenderness Resp Other: Percussion note hyper-resonant, breath sounds are distant with prolonged expiratory phase. Lungs are clear today and no wheezes rhonchi or crepitations are heard. Cardio Palpation: normal PMI Rate: regular rate Rhythm: regular rhythm Heart sounds: no gallops and no murmurs GI Palpation (GI): Soft to palpation, nontender, No hepatosplenomegaly present and no masses Auscultation: normal bowel sounds Back/Spine/Pelvis Thoracic/Lumbar Spine: thoracic and lumbar spine normal to inspection and thoraco-lumbar ROM limited Skin General skin exam: no rashes or lesions noted Neuro General: patient oriented x3 and no focal motor deficits Cranial nerves: Yes CN's II-XII intact bilaterally Extrem General: Yes normal to inspection, Yes no clubbing, cyanosis or edema and Yes no calf tenderness Psych Appearance: grossly normal and well kempt Speech and movement: Normal speech and movement present Assessment & Plan Assessment & Plan (1) COPD (chronic obstructive pulmonary disease): Comment: She has long-standing diagnosis of COPD. She has recovered from her recent acute exacerbation and is back to baseline. She is prone to have recurrent exacerbations due to any minor respiratory infection. She has learned how to take care of self at home and can avoid going to the urgent care or emergency room. Code(s): J44.9 - Chronic obstructive pulmonary disease, unspecified Category: Medical Plan: Continue all the regular meds: Incruse Ellipta 1 inhalation daily Wixela 250-51 inhalation b.i.d.. Ipratropium-albuterol solution in the updraft Q 6 hours while awake Azithromycin 250 mg 3 days a week(<W>) Prednisone 5 mg Q alternate days. (2) Hypoxemia: Comment: SHE DOES HAVE HYPOXEMIA AND MILD HYPERCAPNIA , DUE TO ADVANCED COPD. IT IS WELL TREATED WITH OXYGEN 2 L/MINUTES . GETS MORE SHORT OF BREATH ON EXERTION IF SHE DOES NOT USE O2. Code(s): R09.02 - Hypoxemia Category: Medical Plan: Continue O2 2 L/minute 24 hours a day. Medications: New prednisone 5 mg PO Q OTHER DAY 28 days 14 tabs 4RF Advanced COPD Coding Level of Care Code Est Pt Level 3 (78167) Diagnoses COPD (chronic obstructive pulmonary disease) J44.9 Hypoxemia R09.02
== END 2024-06-21 09:00 | disposition home or self-care (01) ==
PROVIDERS: PCP Internal Medicine; Visit Provider Internal Medicine
DX: J44.9 Chronic obstructive pulmonary disease, unspecified (principal); R09.02 Hypoxemia
CPT/HCPCS: 99213

== ENCOUNTER → 2024-06-21 08:34 | Outpatient (BNVA) | payer OTHER, SELFPAY | PROVIDERS: PCP Internal Medicine; Visit Provider Internal Medicine | DX: J44.9 Chronic obstructive pulmonary disease, unspecified (principal); R09.02 Hypoxemia; Z87.891 Personal history of nicotine dependence | CPT/HCPCS: 99212 ==

== ENCOUNTER 2024-07-31 05:59 | Outpatient (REF) | payer OTHER, SELFPAY ==
[2024-07-31 06:13] LABS: MANUAL DIFF FLAG NO
[2024-07-31 07:20] LABS: Basophils Percent Auto 0.5 % (0-2); Eosinophils Absolute Auto 0.2 X10*3/uL (0.0-0.4); Hematocrit 39.6 % (37.0-47.0); Hemoglobin 12.5 g/dl (12.0-16.0); Imm Gran Abs Auto 0.03 X10*3/uL (0.00-0.03); Imm Gran Pct Auto 0.4 % (0.0-0.4); Lymphocytes Absolute Auto 1.5 X10*3/uL (1.2-4.9); Lymphocytes Percent Auto 19.9 % (20-40); Mean Corpuscular HGB Conc 31.6 g/dl (31.0-35.0); Mean Corpuscular Hemoglobin 31.3 pg (27.0-33.0); Mean Corpuscular Volume 99.2 fL (80.0-98.0); Mean Platelet Volume 11.5 fL (9.4-12.3); Monocytes Absolute Auto 0.3 X10*3/uL (0.1-1.2); Monocytes Percent Auto 3.9 % (2-11); Neutrophils Absolute Auto 5.5 x10*3/uL (2.0-8.3); Neutrophils Percent Auto 73.3 % (45-73); Platelet Count 151 X10*3/uL (160-400); Red Blood Count 3.99 X10*6/uL (4.20-5.50); Red Cell Distribution Width 13.1 % (11.0-16.0); White Blood Count 7.5 X10*3/uL (4.8-10.8)
[2024-07-31 07:28] LABS: Estimated Average Glucose 105 mg/dL; Hemoglobin A1C 114.3194 umol/L; Hemoglobin A1c % 5.3 % (<6.0); Total Hemoglobin (HGBA1C) 3347.5132 umol/L
[2024-07-31 07:50] LABS: B Type Natriuretic Peptide 58 pg/mL (<100)
[2024-07-31 07:57] LABS: Alanine Aminotransferase 14 U/L (0-31); Anion Gap 12 (12-20); Aspartate Amino Transferase 21 U/L (5-31); Bilirubin Direct 0.1 mg/dL (0.0-0.5); Bilirubin Total 0.5 mg/dL (0.0-1.0); Blood Urea Nitrogen 14 mg/dL (9-16); Calcium 9.3 mg/dL (8.4-10.2); Carbon Dioxide 34 mmol/L (22-29); Chloride 100 mmol/L (96-108); Cholesterol 215 mg/dL (<200); Estimated Glomerular Filt Rate > 60; Glucose Fasting 100 mg/dL (60-99); HDL Cholesterol 117 mg/dL (>40); LDL Cholesterol Calculated 81 mg/dL (<100); Magnesium 2.1 mg/dL (1.6-2.6); Potassium 4.2 mmol/L (3.3-5.1); Sodium 142 mmol/L (135-145); Total Protein 6.7 g/dL (6.5-8.0); Triglycerides 86 mg/dL (<150)
[2024-07-31 08:06] LABS: Alkaline Phosphatase 78 U/L (39-117)
[2024-07-31 08:14] LABS: TSH reflex Free T4 0.14 uIU/mL (0.32-4.0); Vitamin D 25-OH Total 67.2 ng/mL (>30)
[2024-07-31 08:56] LABS: Folate > 20.0 ng/mL (> or = 4.0); Vitamin B12 250 pg/mL (200-900)
[2024-07-31 11:07] LABS: Free T4 (Free Thyroxine) 1.29 ng/dL (0.71-1.85)
== END 2024-07-31 06:00 | disposition home or self-care (01) ==
LOC: HO.LAB 05:59
PROVIDERS: PCP Internal Medicine; Visit Provider Physician Assistant Medical
DX: J44.9 Chronic obstructive pulmonary disease, unspecified (principal); E53.8 Deficiency of other specified B group vitamins; E03.9 Hypothyroidism, unspecified; R60.0 Localized edema; E11.9 Type 2 diabetes mellitus without complications
CPT/HCPCS: 36415; 80053; 80061; 80076; 82248; 82306; 82607; 82746; 83036; 83735; 83880; 84439; 84443; 85025

== ENCOUNTER 2024-08-02 08:00 | Outpatient (AMB) | payer OTHER, SELFPAY ==
--- NOTE | 2024-08-02 08:52 | MHC.PC.OV ---
Vital Signs 08/02/24 08:54 Height 5 ft 3 in Weight 168 lb BMI 29.8 BP 130/66 Blood Pressure Location Lt brachial Position Sitting Pulse 73 Pulse Source Pulse Oximeter Temp 97.3 F Temp Source Temporal Artery Scan Pulse Oximetry (%) 96 Oxygen Delivery Method Nasal Cannula Intake Visit Reasons: 3 month f/u Intake Note: Patient is here to follow up on COPD, Hypercholesterolemia. Wood Polisher Required: No Ancillary Services Manager: Not Required per policy Accompanied by: Self / Same As Patient Allergies duloxetine Allergy (Intermediate, Verified 08/02/24 08:54) upset stomach Tobacco use date assessed: 08/02/24 Fall risk assessment: No Falls in past year Last assessed Fall Risk: 08/02/24 Dental Screening Dental Screen Date: 08/02/24 Did you have a dental visit in the last 12 months?: No Did you have a dental problem in the last 6 months where you did not have access to dental care?: No Was dental information given to patient?: No (Dentures) [facility] Medical History History of mammogram (~01/01/22) H/O bone density study (~11/16/22) Encounter for colorectal cancer screening using Cologuard test (~02/01/22) Scalp lesion Deafness in right ear COPD exacerbation Substance use disorder Acquired hypothyroidism Generalized anxiety disorder Hypoxemia COPD (chronic obstructive pulmonary disease) Hypoxemia COPD (chronic obstructive pulmonary disease) Surgical History Hx of surgical procedure (~10/06/23) History of hip replacement Family History Father No problems noted. Mother No problems noted. Other Mental health disorder Substance use disorder Social History Housing: House Alcohol intake: never Patient Tobacco Use Status: Former Tobacco user Tobacco use type: Cigarette e-Cigarette/Vaping Use: Never Used Second Hand Smoke Exposure: Yes service: No Current occupational status: retired Cognitive needs: No Hearing needs: Yes (hearing aides) Vision needs: Yes (Glasses) Questionnaire PHQ-9 Over the last 2 weeks, how often have you been bothered by any of the following problems? 1. Little interest or pleasure in doing things: not at all 2. Feeling down, depressed, or hopeless: not at all 3. Trouble falling or staying asleep, or sleeping too much: not at all 4. Feeling tired or having little energy: not at all 5. Poor appetite or overeating: not at all 6. Feeling bad about yourself - or that you are a failure or have let yourself or your family down: not at all 7. Trouble concentrating on things, such as reading the newspaper or watching television: not at all 8. Moving or speaking so slowly that other people could have noticed. Or the opposite - being so fidgety or restless that you have been moving around a lot more than usual: not at all 9. Thoughts that you would be better off or of hurting yourself in some way: not at all Total score: 0 Depression Screening Interpretation: Negative Depression Screening Done: Yes Source: Developed by Drs. David García, Jennifer Crouch, Brendan Taylor and colleagues, with an educational corby from [employer]. Thrive Questionnaire Date Thrive assessed: 08/02/24 I am a: Patient What is your living situation today?: I have a steady place to live Within the past 12 months, did the food you bought not last and you didn't have the money to get more?: Never true Within the past 12 months, did you worry whether your food would run out before you got money to buy more?: Never true Do you have trouble paying for medicines?: No Do you have trouble getting transportation to medical appointments?: No Do you have trouble paying your heating and electricity bill?: No Do you have trouble taking care of your child, family member or friend?: No Do you have trouble with day-to-day activities such as bathing, preparing meals, shopping, managing finances, etc.?: No Are you currently unemployed and looking for a job?: No Are you interested in more education?: No Please select the resources that you would like help with: None Currently or been in a relationship where the following occur: No concerns reported THRIVE Score: 0 AUDIT C Alcohol Use Questionnaire (AUDIT-C) 1. How often do you have a drink containing alcohol?: Never Total Score: 0 ALLY-7 AMB Questionnaire ALLY-7 Date ALLY - 7 assessed: 08/02/24 Feeling nervous, anxious, or on edge: 0 = Not at all Not being able to stop or control worryin = Not at all Worrying too much about different things: 0 = Not at all Trouble relaxin = Not at all Being so restless that it is hard to sit still: 0 = Not at all Becoming easily annoyed or irritable: 0 = Not at all Feeling afraid as if something awful might happen: 0 = Not at all Total ALLY-7 score (0-4 normal; 5-9 mild; 10-14 moderate; 15-21 severe): 0 Source: Developed by Drs. David García, Jennifer Crouch, Brendan Taylor and colleagues, with an educational corby from [employer]. Physical exam (Primary Care) Vital Signs: Last Vital Signs Temp 97.3 F 08/02/24 08:54 Pulse 73 08/02/24 08:54 BP 130/66 08/02/24 08:54 Pulse Ox 96 08/02/24 08:54 Oxygen Delivery Method Nasal Cannula 08/02/24 08:54 BMI result Body Mass Index 29.8 Tobacco/Smoking Status: Tobacco use Status Tobacco use date assessed 08/02/24 08/02/24 08:58 Patient Tobacco Use Status Former Tobacco user 08/02/24 08:58 Tobacco use type Cigarette 08/02/24 08:58 e-Cigarette/Vaping Use Never Used 08/02/24 08:58 PHQ-9: PHQ-9 Score PHQ-9: Total score 0 08/02/24 08:58 Depression Screening Interpretation: Negative Thrive Assessment: Date of Thrive Assessment Date Thrive assessed 08/02/24 08/02/24 08:58 Currently or been in a relationship where the following occur: No concerns reported Coding Level of Care Code Est Pt Level 4 (93665) Complex EM visit Add On G2211 Diagnoses Generalized anxiety disorder F41.1 Substance use disorder F19.90 Hypercholesteremia E78.00 Acquired hypothyroidism E03.9 Chronic obstructive pulmonary disease, unspecified COPD type J44.9 COPD type: unspecified COPD Assessment & Plan Assessment & Plan (1) Generalized anxiety disorder: Code(s): F41.1 - Generalized anxiety disorder Category: Medical Plan: Continue current medications (2) Substance use disorder: Code(s): F19.90 - Other psychoactive substance use, unspecified, uncomplicated Category: Medical Plan: Continue suboxone (3) Hypercholesteremia: Code(s): E78.00 - Pure hypercholesterolemia, unspecified Category: Medical Plan: BW in range, continue meds at same dosage, (4) Acquired hypothyroidism: Code(s): E03.9 - Hypothyroidism, unspecified Category: Medical Plan: Suppressed TSH. Synthroid dosage reduced to 137 mcg. rpt TSH in six weeks (5) COPD (chronic obstructive pulmonary disease): Comment: Has advanced chronic obstructive pulmonary disease, For the past many years. It has been very stable since she quit smoking completely . Current medical regimen is as follows : [place]: WIXELA 250-50 1 INHALATION B.I.D. INCRUSE ELLIPTA 1 INHALATION DAILY. DUONEB UPDRAFTS Q 6 HOURS P.R.N. Patient needs a new nebulizer for which the prescription has been written. Continues to participate in Pulmonary rehab program. Code(s): J44.9 - Chronic obstructive pulmonary disease, unspecified Category: Medical Qualifiers: COPD type: unspecified COPD Qualified Code(s): J44.9 - Chronic obstructive pulmonary disease, unspecified Plan: USing home oxygen Plan History of Present Illness The patient is a 68-year-old female presenting with medication management for hypothyroidism. She reports maintaining daily intake of her current thyroid medication, which she takes in a 150 mcg dose each morning. The patient has taken proactive steps to manage her dosage by discarding her previous prescriptions. A lower dosage will be implemented with a new prescription, which she is prepared to follow once it is received. Social History - The patient expresses a desire to improve her diet by reducing candy and sweets, including chocolate. - She has recently been visiting multiple medical offices, indicating an active engagement in her healthcare management. - She resides with her fianc?, suggesting family support. Review of Systems - Endocrine: Reports difficulties with the thyroid and current medication dosage. - Respiratory: Reports increased breathlessness and use of supplemental oxygen. Physical Exam General: Cooperative and healthy appearing Nutritional Appearance: Well nourished Orientation/consciousness: Patient oriented x3 Limitations: No limitations Head: Normal to inspection General: Appearance normal, both eyes and all related structures Neck: Normal visual inspection Chest: Normal palpation of entire chest wall Respiratory: Patient experiencing difficulty breathing ormal respiratory effort Neurology: Patient oriented x3 Results - Labs: Reports ongoing issues with thyroid levels noted in blood work. Plan The patient?s thyroid medication dosage will be reduced to alleviate any potential overmedication symptoms and better manage her hypothyroidism. A new prescription will be provided that reflects this dosage adjustment, and the patient will discontinue the current medication upon receipt of the new prescription. Continued monitoring of blood levels will be important to assess the success of the dosage change. Patient was informed and verbally consented to the use of an ambient scribe for clinic note documentation during this visit. Discussion Notes I discussed with the patient that her current dosage of 150 mcg is being reduced to better control potential overmedication symptoms and improve her overall symptom management. I explained that a new prescription will be issued today. The patient is informed to start this new regimen as soon as it is dispensed and concurrently stop the current dosage. I emphasized the necessity of adherence to the new prescription and the importance of blood level monitoring to ensure the treatment's efficacy. We also discussed the importance of reducing dietary sweets as part of her self-management strategy. Consent was obtained for the medication adjustment plan. Patient Instructions - Begin taking the new prescribed thyroid medication as soon as it is received. - Discontinue the current 150 mcg dosage when starting the new prescription. - Monitor any changes in symptoms and report if there are any adverse reactions. - Continue with oxygen therapy as instructed. - Try to reduce the intake of candy and chocolate to support your health goals. - Follow up as advised for future lab tests to monitor thyroid levels. Orders: Orders Thyroid Stimulating Hormone 09/12/24 E03.9 - Hypothyroidism, unspecified Medications: New levothyroxine 137 mcg PO DAILY 60 tabs 0RF Discontinued levothyroxine Discontinued Reason: Doctor's Order 150 mcg PO DAILY 90 days 90 tabs 0RF
[2024-08-02 08:54] VITALS: BP 130/66; PULSE 73; TEMP 36.3; O2SAT 96; BMI 29.8
== END 2024-08-02 09:29 | disposition home or self-care (01) ==
LOC: HO.HMCH 08:01
PROVIDERS: PCP Internal Medicine; Visit Provider Internal Medicine
DX: F41.1 Generalized anxiety disorder (principal); F19.90 Other psychoactive substance use, unspecified, uncomplicated; J44.9 Chronic obstructive pulmonary disease, unspecified; E78.00 Pure hypercholesterolemia, unspecified; E03.9 Hypothyroidism, unspecified

== ENCOUNTER → 2024-08-02 08:00 | Outpatient (BNVA) | payer OTHER, SELFPAY | PROVIDERS: PCP Internal Medicine; Visit Provider Internal Medicine | DX: F41.1 Generalized anxiety disorder (principal); F19.90 Other psychoactive substance use, unspecified, uncomplicated; E78.00 Pure hypercholesterolemia, unspecified; E03.9 Hypothyroidism, unspecified; J44.9 Chronic obstructive pulmonary disease, unspecified; Z79.899 Other long term (current) drug therapy | CPT/HCPCS: 96127; 99212 ==

== ENCOUNTER 2024-08-30 08:52 | Outpatient (AMB) | payer OTHER, SELFPAY ==
[2024-08-30 08:54] VITALS: BP 140/80; PULSE 78; O2SAT 93; BMI 29.7
--- NOTE | 2024-08-30 08:54 | A.OFFVIS_ITS ---
Vital Signs 08/30/24 08:54 Height 5 ft 3 in Weight 167 lb 8.821 oz BMI 29.7 BP 140/80 H Blood Pressure Location Lt brachial Position Sitting Pulse 78 Pulse Source Pulse Oximeter Pulse Oximetry (%) 93 Oxygen Delivery Method Nasal Cannula Oxygen Flow Rate 2 Intake Visit Reasons: copd Intake Note: pt is here for follow up and states her breathing is off and on Advertising Operations Manager Required: No Allergies duloxetine Allergy (Intermediate, Verified 08/30/24 09:12) upset stomach Medication List - Last Reconciled 08/30/24 by Leticia Ferrell MD albuterol sulfate 90 mcg/actuation (Ventolin HFA) 2 puffs inhalation Q4-6H PRN amlodipine 2.5 mg PO DAILY atorvastatin 10 mg PO BEDTIME azithromycin 250 mg PO 3XW 28 days azithromycin 250 mg PO 3XW 30 days buprenorphine-naloxone 8-2 mg 1 film sublingual BID cholecalciferol (vitamin D3) 1,250 mcg PO QWEEK citalopram 20 mg PO DAILY ferrous sulfate 325 mg PO DAILY 90 days fluticasone propion-salmeterol 250-50 mcg/dose (Wixela Inhub) 1 ea PO BID folic acid 1 mg PO DAILY furosemide 20 mg PO DAILY gabapentin 100 mg PO TID Incruse Ellipta 62.5 mcg/actuation (umeclidinium) 2 inhalations PO DAILY 30 days NS ipratropium-albuterol 0.5 mg-3 mg(2.5 mg base)/3 mL 3 mL inhalation Q4-6H PRN levothyroxine 137 mcg PO DAILY metoprolol succinate ER 25 mg PO DAILY 90 days nicotine (polacrilex) 4 mg buccal Q2H PRN prednisone 5 mg PO Q OTHER DAY 28 days prednisone 5 mg PO Q OTHER DAY 28 days quetiapine 100 mg PO BEDTIME thiamine HCl (vitamin B1) 100 mg (2 x 50 mg) PO DAILY Do you need a note to return to daycare/school/sports/work: No HPI HPI copd: Details: Monica is a pleasant 68-year-old here for follow-up for her COPD. She is currently in the pulmonary rehab program. Has been feeling well but occasionally is continuing to have shortness of breath and wheezing. Continues to use Incruse Ellipta, Wixela and ipratropium-albuterol nebulizers. Uses 2 L of oxygen during the day with exertion and at night. Completed a 5 day course of prednisone 20mg daily last week. [facility] Medical History History of mammogram (~01/01/22) H/O bone density study (~11/16/22) Encounter for colorectal cancer screening using Cologuard test (~02/01/22) Scalp lesion Deafness in right ear COPD exacerbation Substance use disorder Acquired hypothyroidism Generalized anxiety disorder Hypoxemia COPD (chronic obstructive pulmonary disease) Hypoxemia COPD (chronic obstructive pulmonary disease) Surgical History Hx of surgical procedure (~10/06/23) History of hip replacement Family History Father No problems noted. Mother No problems noted. Other Mental health disorder Substance use disorder Social History Housing: House Alcohol intake: never Patient Tobacco Use Status: Former Tobacco user Tobacco use type: Cigarette e-Cigarette/Vaping Use: Never Used Second Hand Smoke Exposure: Yes service: No Current occupational status: retired Cognitive needs: No Hearing needs: Yes (hearing aides) Vision needs: Yes (Glasses) Review of Systems Const All systems reviewed & are unremarkable except as noted in HPI and below Eyes Reports no additional complaints ENT Reports no additional complaints Card Denies chest pain, Denies irregular heart rhythm and Denies leg edema Resp Reports as per HPI GI Reports no additional complaints Reports no additional complaints Musc Reports back pain (mild ) and Reports muscle weakness (General weakness) Skin/Breast Reports system reviewed and no additional complaints, except as documented Neuro Reports no additional complaints Psych Reports no additional complaints Endo Reports no additional complaints Physical Exam Vital Signs: Last Vital Signs Pulse 78 08/30/24 08:54 BP 140/80 H 08/30/24 08:54 Pulse Ox 93 08/30/24 08:54 Oxygen Delivery Method Nasal Cannula 08/30/24 08:54 Oxygen Flow Rate 2 08/30/24 08:54 BMI result Body Mass Index 29.7 Const General: comfortable, no acute distress, alert and awake Orientation/consciousness: patient oriented x3 HEENT Head: Yes normal to inspection General nose exam: No nasal polyps present and No nasal discharge present Face and sinus: Yes sinuses nontender Mouth: oropharynx normal and no other (NO THRUSH NOTED) Throat: Yes posterior oropharynx normal Eyes General: appearance normal, both eyes and all related structures Neck Neck: Yes normal visual inspection, Yes no lymphadenopathy, Yes trachea midline and Yes no JVD Thyroid: Thyroid normal Chest Chest palpation & inspection: normal inspection of the chest, normal palpation of entire chest wall and no tenderness Resp Other: Percussion note hyper-resonant, breath sounds are distant with prolonged expiratory phase. Lungs are clear today and no wheezes rhonchi or crepitations are heard. Effort & Inspection: normal respiratory effort, prolonged expiratory phase and symmetric chest movement Cardio Palpation: normal PMI Rate: regular rate Rhythm: regular rhythm Heart sounds: no gallops and no murmurs GI Palpation (GI): Soft to palpation, nontender, No hepatosplenomegaly present and no masses Auscultation: normal bowel sounds Back/Spine/Pelvis Thoracic/Lumbar Spine: thoracic and lumbar spine normal to inspection and thoraco-lumbar ROM limited Skin General skin exam: no rashes or lesions noted Neuro General: patient oriented x3 and no focal motor deficits Cranial nerves: Yes CN's II-XII intact bilaterally Extrem General: Yes normal to inspection, Yes no clubbing, cyanosis or edema and Yes no calf tenderness Psych Appearance: grossly normal and well kempt Speech and movement: Normal speech and movement present Assessment & Plan Assessment & Plan (1) Hypoxemia: Comment: SHE DOES HAVE HYPOXEMIA AND MILD HYPERCAPNIA, DUE TO ADVANCED COPD. IT IS WELL TREATED WITH OXYGEN 2 L/MINUTES . GETS MORE SHORT OF BREATH ON EXERTION IF SHE DOES NOT USE O2. Code(s): R09.02 - Hypoxemia Category: Medical Plan: Continue use of oxygen at 2 L during the day and while sleeping. Continue pulmonary rehab program and use pursed lip breathing when short of breath after exertion. (2) COPD (chronic obstructive pulmonary disease): Comment: Has advanced chronic obstructive pulmonary disease, For the past many years. It has been very stable since she quit smoking completely . Current medical regimen is as follows : TX: WIXELA 250-50 1 INHALATION B.I.D. INCRUSE ELLIPTA 1 INHALATION DAILY. MONICA AVILA Q 6 HOURS P.R.N. Continues to participate in Pulmonary rehab program. Code(s): J44.9 - Chronic obstructive pulmonary disease, unspecified Category: Medical Qualifiers: COPD type: unspecified COPD Qualified Code(s): J44.9 - Chronic o bstructive pulmonary disease, unspecified Plan: Continue Wixela 250-50 mcg 1 inhalation b.i.d. Continue Incruse Ellipta 62.5 mcg 2 inhalations daily Continue Ipratropium-albuterol 0.5 inhalation every 4-6 hours as needed for wheezing or shortness of breath Continue albuterol sulfate 90 mcg 2 puffs every 4-6 hours as needed for wheezing or shortness of breath when outside. Continue pulmonary rehab. Start prednisone 5 mg every other day. Start calcium and vitamin-D daily d/t chronic steroid use. Start azithromycin 250 mg Tuesday, Tuesday, Tuesday. Medications: Refilled prednisone 5 mg PO Q OTHER DAY 14 tabs 5RF COPD EXCERBATION 28 days Coding Level of Care Code Est Pt Level 3 (13867) Diagnoses Hypoxemia R09.02 Chronic obstructive pulmonary disease, unspecified COPD type J44.9 COPD type: unspecified COPD
== END 2024-08-30 09:11 | disposition home or self-care (01) ==
LOC: HO.HPS 08:53
PROVIDERS: PCP Internal Medicine; Visit Provider Internal Medicine
DX: R09.02 Hypoxemia (principal); J44.9 Chronic obstructive pulmonary disease, unspecified
CPT/HCPCS: 99213

== ENCOUNTER → 2024-08-30 08:52 | Outpatient (BNVA) | payer OTHER, SELFPAY | PROVIDERS: PCP Internal Medicine; Visit Provider Internal Medicine | DX: J44.9 Chronic obstructive pulmonary disease, unspecified (principal); R09.02 Hypoxemia | CPT/HCPCS: 99212 ==

== ENCOUNTER 2024-09-18 08:58 | Outpatient (AMB) | payer OTHER, SELFPAY ==
[2024-09-18 09:13] VITALS: BP 130/68; PULSE 83; O2SAT 95; BMI 28.5
--- NOTE | 2024-09-18 09:13 | A.OFFVIS_ITS ---
Vital Signs 09/18/24 09:13 Height 5 ft 3 in Weight 161 lb BMI 28.5 BP 130/68 Blood Pressure Location Lt brachial Position Sitting Pulse 83 Pulse Source Pulse Oximeter Pulse Oximetry (%) 95 Oxygen Delivery Method Nasal Cannula Oxygen Flow Rate 3 Intake Visit Reasons: copd flare up Intake Note: pt is here for sick visit who states she has been sick for about a week, short of breath, coughing, headaches, nasal congestion, News Library Director Required: No Allergies duloxetine Allergy (Intermediate, Verified 09/18/24 09:24) upset stomach Medication List - Last Reconciled 09/18/24 by Leticia Ferrell MD albuterol sulfate 90 mcg/actuation (Ventolin HFA) 2 puffs inhalation Q4-6H PRN amlodipine 2.5 mg PO DAILY atorvastatin 10 mg PO BEDTIME azithromycin 250 mg PO 3XW 28 days azithromycin 250 mg PO 3XW 30 days buprenorphine-naloxone 8-2 mg 1 film sublingual BID cholecalciferol (vitamin D3) 1,250 mcg PO QWEEK citalopram 20 mg PO DAILY ferrous sulfate 325 mg PO DAILY 90 days fluticasone propion-salmeterol 250-50 mcg/dose (Wixela Inhub) 1 ea PO BID folic acid 1 mg PO DAILY furosemide 20 mg PO DAILY gabapentin 100 mg PO TID Incruse Ellipta 62.5 mcg/actuation (umeclidinium) 2 inhalations PO DAILY 30 days NS ipratropium-albuterol 0.5 mg-3 mg(2.5 mg base)/3 mL 3 mL inhalation Q4-6H PRN levothyroxine 137 mcg PO DAILY metoprolol succinate ER 25 mg PO DAILY 90 days nicotine (polacrilex) 4 mg buccal Q2H PRN prednisone 5 mg PO Q OTHER DAY 28 days prednisone 5 mg PO Q OTHER DAY 28 days quetiapine 100 mg PO BEDTIME thiamine HCl (vitamin B1) 100 mg (2 x 50 mg) PO DAILY Do you need a note to return to daycare/school/sports/work: No HPI HPI copd flare up: Details: Monica comes back, complaining of increased chest congestion increase nasal stuffiness, and increased shortness of breath. But she has had no acute fever chills or expectoration. He with oxygen 2 L/minute when she walks outdoors her O2 sat does drop below 90%. It seems that as any time we reduce the dose of prednisone she starts having increased symptoms, Currently she is on prednisone 5 mg on alternate days. She still using all her inhalers, nebulized treatments, and azithromycin 250 3 times a week. She is on O2 2 L/minute 24 hours a day. As she walked into the office her O2 sat was in mid 70s. And on sitting down with increase of O2 to 3 L/minute it came up to 95. I think this indicates that she is not using oxygen properly when she walks. [facility] Medical History History of mammogram (~01/01/22) H/O bone density study (~11/16/22) Encounter for colorectal cancer screening using Cologuard test (~02/01/22) Scalp lesion Deafness in right ear COPD exacerbation Substance use disorder Acquired hypothyroidism Generalized anxiety disorder Hypoxemia COPD (chronic obstructive pulmonary disease) Hypoxemia COPD (chronic obstructive pulmonary disease) Surgical History Hx of surgical procedure (~10/06/23) History of hip replacement Family History Father No problems noted. Mother No problems noted. Other Mental health disorder Substance use disorder Social History Housing: House Alcohol intake: never Patient Tobacco Use Status: Former Tobacco user Tobacco use type: Cigarette e-Cigarette/Vaping Use: Never Used Second Hand Smoke Exposure: Yes service: No Current occupational status: retired Cognitive needs: No Hearing needs: Yes (hearing aides) Vision needs: Yes (Glasses) Review of Systems Const All systems reviewed & are unremarkable except as noted in HPI and below Eyes Reports no additional complaints ENT Reports no additional complaints Card Denies chest pain, Denies irregular heart rhythm and Denies leg edema Resp Reports as per HPI GI Reports no additional complaints Reports no additional complaints Musc Reports back pain (mild ) and Reports muscle weakness (General weakness) Skin/Breast Reports system reviewed and no additional complaints, except as documented Neuro Reports no additional complaints Psych Reports no additional complaints Endo Reports no additional complaints Physical Exam Vital Signs: Last Vital Signs Pulse 83 06/03/25 09:13 BP 130/68 09/18/24 09:13 Pulse Ox 95 09/18/24 09:13 Oxygen Delivery Method Nasal Cannula 09/18/24 09:13 Oxygen Flow Rate 3 09/18/24 09:13 BMI result Body Mass Index 28.5 Const General: comfortable, no acute distress, alert and awake Orientation/consciousness: patient oriented x3 HEENT Head: Yes normal to inspection General nose exam: No nasal polyps present and No nasal discharge present Face and sinus: Yes sinuses nontender Mouth: oropharynx normal and no other (NO THRUSH NOTED) Throat: Yes posterior oropharynx normal Eyes General: appearance normal, both eyes and all related structures Neck Neck: Yes normal visual inspection, Yes no lymphadenopathy, Yes trachea midline and Yes no JVD Thyroid: Thyroid normal Chest Chest palpation & inspection: normal inspection of the chest, normal palpation of entire chest wall and no tenderness Resp Other: Percussion note hyper-resonant, breath sounds are distant with prolonged expiratory phase. Lungs are clear today and no wheezes rhonchi or crepitations are heard. Effort & Inspection: normal respiratory effort, prolonged expiratory phase and symmetric chest movement Cardio Palpation: normal PMI Rate: regular rate Rhythm: regular rhythm Heart sounds: no gallops and no murmurs GI Palpation (GI): Soft to palpation, nontender, No hepatosplenomegaly present and no masses Auscultation: normal bowel sounds Back/Spine/Pelvis Thoracic/Lumbar Spine: thoracic and lumbar spine normal to inspection and thoraco-lumbar ROM limited Skin General skin exam: no rashes or lesions noted Neuro General: patient oriented x3 and no focal motor deficits Cranial nerves: Yes CN's II-XII intact bilaterally Extrem General: Yes normal to inspection, Yes no clubbing, cyanosis or edema and Yes no calf tenderness Psych Appearance: grossly normal and well kempt Speech and movement: Normal speech and movement present Assessment & Plan Assessment & Plan (1) COPD exacerbation: Comment: 68 YEARS OLD FEMALE A KNOWN CASE OF ADVANCED CHRONIC OBSTRUCTIVE PULMONARY DISEASE WITH CHRONIC RESPIRATORY FAILURE SHE IS PRONE TO HAVE FREQUENT ACUTE EXACERBATIONS DUE TO ACUTE VIRAL/BACTERIAL RESPIRATORY INFECTIONS OR CHANGE IN THE WEATHER. CURRENTLY SHE HAS INCREASED SYMPTOMS PROBABLY DUE TO ENVIRONMENTAL CHANGES, AND MAY BE LOW-GRADE BRONCHITIS. WHEN SHE WAS SEEN HERE 3 WEEKS AGO WE TRY TO CUT DOWN THE PREDNISONE TO 5 MG ON ALTERNATE DAYS. AFTER THAT SLOWLY HER BREATHING HAS GOTTEN WORSE. Code(s): J44.1 - Chronic obstructive pulmonary disease with (acute) exacerbation Category: Medical Plan: HOLD AZITHROMYCIN FOR 10 DAYS, AND I PRESCRIBED DOXYCYCLINE 100 B.I.D. FOR 10 DAYS. PREDNISONE 5 MG 2 TABLETS A DAY FOR 10 DAYS AND THEN REDUCE TO 5 MG DAILY CONTINUE WIXELA 250-51 INHALATION B.I.D., INCRUSE ELLIPTA 1 INHALATION DAILY, IPRATROPIUM-ALBUTEROL SOLUTION IN THE NEBULIZER Q 4-6 HOURS P.R.N. (2) Hypoxemia: Comment: SHE DOES HAVE HYPOXEMIA AND MILD HYPERCAPNIA, DUE TO ADVANCED COPD. IT IS WELL TREATED WITH OXYGEN 2 L/MINUTES . GETS MORE SHORT OF BREATH ON EXERTION IF SHE DOES NOT USE O2. Code(s): R09.02 - Hypoxemia Category: Medical Plan: ADVISED TO INCREASE O2 TO 3 L/MINUTE WHEN OUTDOORS AND USING THE PORTABLE UNIT. AT HOME SHE CAN GO BACK TO O2 2 L/MINUTE. Orders: Orders XR chest 2V Today J44.1 - Chronic obstructive pulmonary disease with (acute) exacerbation, R09.02 - Hypoxemia Medications: New doxycycline hyclate 100 mg PO BID 20 tabs 0RF EXCERBATION OF COPD 10 days Coding Level of Care Code Est Pt Level 3 (18432) Diagnoses COPD exacerbation J44.1 Hypoxemia R09.02
== END 2024-09-18 09:51 | disposition home or self-care (01) ==
LOC: HO.HPS 08:58
PROVIDERS: PCP Internal Medicine; Visit Provider Internal Medicine
DX: J44.1 Chronic obstructive pulmonary disease with (acute) exacerbation (principal); R09.02 Hypoxemia
CPT/HCPCS: 99213

== ENCOUNTER 2024-09-18 08:58 | Outpatient (REF) | payer OTHER, SELFPAY ==
--- NOTE | ~2024-09-18 | XR_ITS ---
EXAMINATION: XR CHEST CLINICAL INFORMATION: J44.1 - Chronic obstructive pulmonary disease with (acute) exacerbation COMPARISON: Chest x-ray 12/23/2023 TECHNIQUE: 2 views of the chest were obtained. FINDINGS: The lungs are well-expanded and clear acute process. The heart size and poor vascularity is normal. There is mild extra scoliosis lower dorsal spine. No aggressive lytic or sclerotic process seen. XR/XR chest 2V IMPRESSION: Unremarkable chest examination. Electronically signed by: Desean Wylie MD 09/18/2024 10:27 AM EDT RP
== END 2024-09-18 08:59 | disposition home or self-care (01) ==
LOC: HO.XRAY 08:58
PROVIDERS: PCP Internal Medicine; Visit Provider Internal Medicine
DX: J44.1 Chronic obstructive pulmonary disease with (acute) exacerbation (principal); R09.02 Hypoxemia
CPT/HCPCS: 71046; 99212

== ENCOUNTER → 2024-09-18 09:32 | Outpatient (BNV) | payer OTHER, SELFPAY | PROVIDERS: PCP Internal Medicine; Visit Provider Radiology Diagnostic Radiology | DX: J44.1 Chronic obstructive pulmonary disease with (acute) exacerbation (principal) | CPT/HCPCS: 71046 ==

== ENCOUNTER 2024-09-25 07:57 | Outpatient (REF) | payer OTHER, SELFPAY | END 2024-09-25 07:58 | disposition home or self-care (01) | LOC: HO.MAMMO 07:57 | PROVIDERS: PCP Internal Medicine; Visit Provider Internal Medicine | DX: Z12.31 Encounter for screening mammogram for malignant neoplasm of breast (principal) | CPT/HCPCS: 77063; 77067 ==

== ENCOUNTER → 2024-09-25 08:45 | Outpatient (BNV) | payer OTHER, SELFPAY | PROVIDERS: PCP Internal Medicine; Visit Provider Internal Medicine | DX: Z12.31 Encounter for screening mammogram for malignant neoplasm of breast (principal) | CPT/HCPCS: 77063; 77067 ==

== ENCOUNTER 2024-10-11 05:59 | Outpatient (REF) | payer OTHER, SELFPAY ==
[2024-10-11 08:05] LABS: Thyroid Stimulating Hormone 0.03 uIU/mL (0.32-4.0)
== END 2024-10-11 06:00 | disposition home or self-care (01) ==
LOC: HO.LAB 05:59
PROVIDERS: PCP Internal Medicine; Visit Provider Internal Medicine
DX: E03.9 Hypothyroidism, unspecified (principal)
CPT/HCPCS: 36415; 84443

== ENCOUNTER 2024-11-01 08:55 | Outpatient (AMB) | payer OTHER, SELFPAY ==
--- NOTE | 2024-11-01 09:12 | MHC.OFFVIS ---
Vital Signs 11/01/24 09:13 Height 5 ft 3 in Weight 162 lb 0.636 oz BMI 28.7 BP 134/69 Blood Pressure Location Lt brachial Position Sitting Pulse 89 Pulse Oximetry (%) 91 L Oxygen Delivery Method Nasal Cannula Oxygen Flow Rate 3 Intake Visit Reasons: COPD Intake Note: pt is here for follow up and is not having a good day today, for about a week this is happening, legs were swollen but better today, tight in chest. Cash Application Clerk Required: No Allergies duloxetine Allergy (Intermediate, Verified 11/01/24 09:27) upset stomach Medication List - Last Reconciled 11/01/24 by Leticia Ferrell MD albuterol sulfate 90 mcg/actuation 2 puffs PO Q4-6H PRN amlodipine 2.5 mg PO DAILY atorvastatin 10 mg PO BEDTIME buprenorphine-naloxone 8-2 mg 1 film sublingual BID cholecalciferol (vitamin D3) 1,250 mcg PO QWEEK citalopram 20 mg PO DAILY ferrous sulfate 325 mg PO DAILY 90 days fluticasone propion-salmeterol 250-50 mcg/dose (Wixela Inhub) 1 ea PO BID folic acid 1 mg PO DAILY furosemide 20 mg PO DAILY gabapentin 100 mg PO TID Incruse Ellipta 62.5 mcg/actuation (umeclidinium) 2 inhalations PO DAILY 30 days NS ipratropium-albuterol 0.5 mg-3 mg(2.5 mg base)/3 mL 3 mL inhalation Q4-6H PRN levothyroxine (Synthroid) 125 mcg PO DAILY metoprolol succinate ER 25 mg PO DAILY 90 days nicotine (polacrilex) 4 mg buccal Q2H PRN prednisone 10 mg (2 x 5 mg) PO DAILY 10 days prednisone 5 mg PO Q OTHER DAY 28 days quetiapine 100 mg PO BEDTIME thiamine HCl (vitamin B1) 100 mg (2 x 50 mg) PO DAILY PFSH Medical History (Updated 11/01/24 @ 09:49 by Leticia Ferrell MD) Anxiety and depression History of mammogram (~01/01/22) H/O bone density study (~11/16/22) Encounter for colorectal cancer screening using Cologuard test (~02/01/22) Scalp lesion Deafness in right ear COPD exacerbation Substance use disorder Acquired hypothyroidism Generalized anxiety disorder Hypoxemia COPD (chronic obstructive pulmonary disease) Hypoxemia COPD (chronic obstructive pulmonary disease) Surgical History Hx of surgical procedure (~10/06/23) History of hip replacement Family History Father No problems noted. Mother No problems noted. Other Mental health disorder Substance use disorder Social History Housing: House Alcohol intake: never Patient Tobacco Use Status: Former Tobacco user Tobacco use type: Cigarette e-Cigarette/Vaping Use: Never Used Second Hand Smoke Exposure: Yes service: No Current occupational status: retired Cognitive needs: No Hearing needs: Yes (hearing aides) Vision needs: Yes (Glasses) Review of Systems Const All systems reviewed & are unremarkable except as noted in HPI and below Eyes Reports no additional complaints ENT Reports no additional complaints Card Denies chest pain, Denies irregular heart rhythm and Denies leg edema Resp Reports as per HPI GI Reports no additional complaints Reports no additional complaints Musc Reports back pain (mild ) and Reports muscle weakness (General weakness) Skin/Breast Reports system reviewed and no additional complaints, except as documented Neuro Reports no additional complaints Psych Reports no additional complaints Endo Reports no additional complaints Physical Exam Vital Signs: Last Vital Signs Pulse 89 11/01/24 09:13 BP 134/69 11/01/24 09:13 Pulse Ox 91 L 11/01/24 09:13 Oxygen Delivery Method Nasal Cannula 11/01/24 09:13 Oxygen Flow Rate 3 11/01/24 09:13 BMI result Body Mass Index 28.7 Const General: comfortable, no acute distress, alert and awake Orientation/consciousness: patient oriented x3 HEENT Head: Yes normal to inspection General nose exam: No nasal polyps present and No nasal discharge present Face and sinus: Yes sinuses nontender Mouth: oropharynx normal and no other (NO THRUSH NOTED) Throat: Yes posterior oropharynx normal Eyes General: appearance normal, both eyes and all related structures Neck Neck: Yes normal visual inspection, Yes no lymphadenopathy, Yes trachea midline and Yes no JVD Thyroid: Thyroid normal Chest Chest palpation & inspection: normal inspection of the chest, normal palpation of entire chest wall and no tenderness Resp Other: Percussion note hyper-resonant, breath sounds are distant with prolonged expiratory phase. Lungs are clear today and no wheezes rhonchi or crepitations are heard. Effort & Inspection: normal respiratory effort, prolonged expiratory phase and symmetric chest movement Cardio Palpation: normal PMI Rate: regular rate Rhythm: regular rhythm Heart sounds: no gallops and no murmurs GI Palpation (GI): Soft to palpation, nontender, No hepatosplenomegaly present and no masses Auscultation: normal bowel sounds Back/Spine/Pelvis Thoracic/Lumbar Spine: thoracic and lumbar spine normal to inspection and thoraco-lumbar ROM limited Skin General skin exam: no rashes or lesions noted Neuro General: patient oriented x3 and no focal motor deficits Cranial nerves: Yes CN's II-XII intact bilaterally Extrem General: Yes normal to inspection, Yes no clubbing, cyanosis or edema and Yes no calf tenderness Psych Appearance: grossly normal and well kempt Speech and movement: Normal speech and movement present Results Reviewed Results Reviewed: Chest x-ray on 09/18/24 on [facility]. Assessment & Plan Assessment & Plan (1) COPD (chronic obstructive pulmonary disease): Comment: She has long-standing diagnosis of COPD. She has recovered from her recent acute exacerbation and is back to baseline. She is prone to have recurrent exacerbations due to any minor respiratory infection. Every time she comes to the office she seems to be anxious, finishes her prescribed medications too soon. She uses the rescue inhaler too frequently and finishes up before the refill date . She loves to go to rehab program, but in spite of this she is still having tendency to become anxious. Code(s): J44.9 - Chronic obstructive pulmonary disease, unspecified Category: Medical Plan: I AM TRYING TO REORGANIZE HER REGIMEN SO THAT SHE CAN USE MORE REGULARLY DC WIXELA. USE BUDESONIDE 0.5 MG IN THE NEBULIZER B.I.D.. ADVISE THAT SHE SHOULD USE IPRATROPIUM-ALBUTEROL SOLUTION IN THE NEBULIZER Q 6 HOURS WHILE AWAKE ( AT LEAST 3 TIMES A DAY) PREDNISONE 5 MG 2 TABLETS DAILY. USE VENTOLIN 2 PUFFS Q 4-6 HOURS ONLY P.R.N. AND NOT JUST FOR ANXIETY. OKAY TO CONTINUE INCRUSE ELLIPTA 1 INHALATION DAILY. (2) Hypoxemia: Comment: SHE DOES HAVE HYPOXEMIA AND MILD HYPERCAPNIA, DUE TO ADVANCED COPD. IT IS WELL TREATED WITH OXYGEN 2 L/MINUTES , AND SOMETIMES HAS TO INCREASE TO 3 L/MT.GETS MORE SHORT OF BREATH ON EXERTION IF SHE DOES NOT USE O2. Code(s): R09.02 - Hypoxemia Category: Medical Plan: CONTINUE USE OXYGEN AT 2-3 L/MINUTE 24 HOURS (3) Anxiety and depression: Comment: SHE TENDS TO BECOME VERY ANXIOUS AND THEN SHE USES BRONCHODILATOR INHALER, VENTOLIN AND THAT MAY MAKE HER MORE ANXIOUS. Code(s): F41.9 - Anxiety disorder, unspecified; F32.A - Depression, unspecified Category: Medical Plan: TRY TO REASSURE HER AND EXPLAINED THOROUGHLY ABOUT HER MEDICAL REGIMEN. ADVISE THAT SHE SHOULD NOT USE VENTOLIN EACH TIME SHE IS ANXIOUS AND MORE SHORT OF BREATH. CONTINUE CITALOPRAM 20 MG DAILY. ALSO CONTINUE QUETIAPINE 100 MG AT BEDTIME Medications: New budesonide 0.5 mg (2 mL) inhalation BID 120 mL 0RF 30 days J44.9 - Chronic obstructive pulmonary disease, unspecified prednisone 5 mg PO BID 60 tabs 5RF COPD 30 days Changed From albuterol sulfate 90 mcg/actuation 2 puffs PO Q4-6H PRN 18 ea 0RF for wheezing To albuterol sulfate 90 mcg/actuation 2 puffs PO Q4-6H PRN 18 ea 5RF for wheezing 30 days Coding Level of Care Code Est Pt Level 4 (62654) Diagnoses COPD (chronic obstructive pulmonary disease) J44.9 Hypoxemia R09.02 Anxiety and depression F41.9; F32.A
[2024-11-01 09:13] VITALS: BP 134/69; PULSE 89; O2SAT 91; BMI 28.7
== END 2024-11-01 09:41 | disposition home or self-care (01) ==
LOC: HO.HPS 08:56
PROVIDERS: PCP Internal Medicine; Visit Provider Internal Medicine
DX: J44.9 Chronic obstructive pulmonary disease, unspecified (principal); R09.02 Hypoxemia; F41.9 Anxiety disorder, unspecified; F32.A Depression, unspecified
CPT/HCPCS: 99214

== ENCOUNTER → 2024-11-01 08:55 | Outpatient (BNVA) | payer OTHER, SELFPAY | PROVIDERS: PCP Internal Medicine; Visit Provider Internal Medicine | DX: R09.02 Hypoxemia (principal); F41.9 Anxiety disorder, unspecified; F32.A Depression, unspecified; J44.9 Chronic obstructive pulmonary disease, unspecified | CPT/HCPCS: 99212 ==

== ENCOUNTER 2024-11-29 08:27 | Outpatient (AMB) | payer OTHER, SELFPAY ==
[2024-11-29 08:55] VITALS: BP 120/70; PULSE 79; O2SAT 92; BMI 29.9
--- NOTE | 2024-11-29 08:55 | A.OFFVIS_ITS ---
Vital Signs 11/29/24 08:55 Height 5 ft 3 in Weight 169 lb BMI 29.9 BP 120/70 Blood Pressure Location Lt brachial Position Sitting Pulse 79 Pulse Source Pulse Oximeter Pulse Oximetry (%) 92 Oxygen Delivery Method Nasal Cannula Oxygen Flow Rate 2 Intake Visit Reasons: COPD Intake Note: pt is here for follow up and states she is feeling better. pt needs refill on ventolin hfa [place] Required: No Allergies duloxetine Allergy (Intermediate, Verified 11/29/24 09:08) upset stomach Medication List - Last Reconciled 11/29/24 by Leticia Ferrell MD albuterol sulfate 90 mcg/actuation 2 puffs PO Q4-6H PRN 30 days amlodipine 2.5 mg PO DAILY atorvastatin 10 mg PO BEDTIME budesonide INHALE 1 VIAL 2 TIMES A DAY FOR 30 DAYS buprenorphine-naloxone 8-2 mg 1 film sublingual BID cholecalciferol (vitamin D3) 1,250 mcg PO QWEEK citalopram 20 mg PO DAILY ferrous sulfate 325 mg PO DAILY 90 days fluticasone propion-salmeterol 250-50 mcg/dose (Wixela Inhub) 1 ea PO BID folic acid 1 mg PO DAILY furosemide 20 mg PO DAILY gabapentin 100 mg PO TID Incruse Ellipta 62.5 mcg/actuation (umeclidinium) 2 inhalations PO DAILY NS ipratropium-albuterol 0.5 mg-3 mg(2.5 mg base)/3 mL 3 mL inhalation Q4-6H PRN levothyroxine (Synthroid) 125 mcg PO DAILY metoprolol succinate ER 25 mg PO DAILY 90 days nicotine (polacrilex) 4 mg buccal Q2H PRN prednisone 10 mg (2 x 5 mg) PO DAILY 10 days prednisone 5 mg PO BID 30 days quetiapine 100 mg PO BEDTIME thiamine HCl (vitamin B1) 100 mg (2 x 50 mg) PO DAILY Do you need a note to return to daycare/school/sports/work: No HPI HPI COPD: Details: THIS 69 YEARS OLD FEMALE WITH ADVANCED CHRONIC OBSTRUCTIVE PULMONARY DISEASE, ONGOING RESPIRATORY FAILURE, AND HAVING FREQUENT ACUTE EXACERBATIONS, COMES AFTER 1 MONTH FOR SHORT-TERM FOLLOW-UP. SHE CLAIMS TO FEEL BETTER BUT STILL FEELS WEAK ,. AND TENDS TO GET TIRED EASILY SHE IS PARTICIPATING IN THE REHAB PROGRAM. SHE IS STILL ON PREDNISONE 10 MG A DAY. USING BUDESONIDE IN THE NEBULIZER IS HELPING. CLAIMS THAT SHE RETAINS FLUID IN THE LOWER EXTREMITIES ESPECIALLY TOWARDS THE AFTERNOON AND ON HOT/HUMIRA DAYS. [facility] Medical History (Updated 11/29/24 @ 09:16 by Leticia Ferrell MD) Respiratory failure with hypoxia Anxiety and depression History of mammogram (~01/01/22) H/O bone density study (~11/16/22) Encounter for colorectal cancer screening using Cologuard test (~02/01/22) Scalp lesion Deafness in right ear COPD exacerbation Substance use disorder Acquired hypothyroidism Generalized anxiety disorder Hypoxemia COPD (chronic obstructive pulmonary disease) Hypoxemia COPD (chronic obstructive pulmonary disease) Surgical History Hx of surgical procedure (~10/06/23) History of hip replacement Family History Father No problems noted. Mother No problems noted. Other Mental health disorder Substance use disorder Social History Housing: House Alcohol intake: never Patient Tobacco Use Status: Former Tobacco user Tobacco use type: Cigarette e-Cigarette/Vaping Use: Never Used Second Hand Smoke Exposure: Yes service: No Current occupational status: retired Cognitive needs: No Hearing needs: Yes (hearing aides) Vision needs: Yes (Glasses) Review of Systems Const All systems reviewed & are unremarkable except as noted in HPI and below Eyes Reports no additional complaints ENT Reports no additional complaints Card Denies chest pain, Denies irregular heart rhythm and Denies leg edema Resp Reports as per HPI GI Reports no additional complaints Reports no additional complaints Musc Reports back pain (mild ) and Reports muscle weakness (General weakness) Skin/Breast Reports system reviewed and no additional complaints, except as documented Neuro Reports no additional complaints Psych Reports no additional complaints Endo Reports no additional complaints Physical Exam Vital Signs: Last Vital Signs Pulse 79 11/29/24 08:55 BP 120/70 11/29/24 08:55 Pulse Ox 92 11/29/24 08:55 Oxygen Delivery Method Nasal Cannula 11/29/24 08:55 Oxygen Flow Rate 2 11/29/24 08:55 BMI result Body Mass Index 29.9 Const General: comfortable, no acute distress, alert and awake Orientation/consciousness: patient oriented x3 HEENT Head: Yes normal to inspection General nose exam: No nasal polyps present and No nasal discharge present Face and sinus: Yes sinuses nontender Mouth: oropharynx normal and no other (NO THRUSH NOTED) Throat: Yes posterior oropharynx normal Eyes General: appearance normal, both eyes and all related structures Neck Neck: Yes normal visual inspection, Yes no lymphadenopathy, Yes trachea midline and Yes no JVD Thyroid: Thyroid normal Chest Chest palpation & inspection: normal inspection of the chest, normal palpation of entire chest wall and no tenderness Resp Other: Percussion note hyper-resonant, breath sounds are distant with prolonged expiratory phase. Lungs are clear today and no wheezes rhonchi or crepitations are heard. Effort & Inspection: normal respiratory effort, prolonged expiratory phase and symmetric chest movement Cardio Palpation: normal PMI Rate: regular rate Rhythm: regular rhythm Heart sounds: no gallops and no murmurs GI Palpation (GI): Soft to palpation, nontender, No hepatosplenomegaly present and no masses Auscultation: normal bowel sounds Back/Spine/Pelvis Thoracic/Lumbar Spine: thoracic and lumbar spine normal to inspection and thoraco-lumbar ROM limited Skin General skin exam: no rashes or lesions noted Neuro General: patient oriented x3 and no focal motor deficits Cranial nerves: Yes CN's II-XII intact bilaterally Extrem General: Yes normal to inspection, Yes no clubbing, cyanosis or edema and Yes no calf tenderness Psych Appearance: grossly normal and well kempt Speech and movement: Normal speech and movement present Assessment & Plan Assessment & Plan (1) COPD exacerbation: Comment: 68 YEARS OLD FEMALE A KNOWN CASE OF ADVANCED CHRONIC OBSTRUCTIVE PULMONARY DISEASE WITH CHRONIC RESPIRATORY FAILURE SHE IS PRONE TO HAVE FREQUENT ACUTE EXACERBATIONS DUE TO ACUTE VIRAL/BACTERIAL RESPIRATORY INFECTIONS OR CHANGE IN THE WEATHER. CURRENTLY SHE IS RECOVERING FROM ACUTE EXACERBATION . SHE CONTINUES TO BE SOMEWHAT DECOMPENSATED AND GETS FREQUENT COUGH AND TIRES EASILY. SHE IS ON A PROTRACTED COURSE OF PREDNISONE IN ADDITION TO HER OTHER REGIMEN. Code(s): J44.1 - Chronic obstructive pulmonary disease with (acute) exacerbation Category: Medical Plan: CONTINUE TO USE BUDESONIDE 0.5 MG IN THE NEBULIZER B.I.D. IPRATROPIUM/ALBUTEROL SOLUTION IN THE NEBULIZER Q 6 HOURS WHILE AWAKE. INCRUSE ELLIPTA 1 INHALATION DAILY PREDNISONE 5 MG 2 TABLETS ALTERNATING WITH 1 TABLET DAILY FOR 1 WEEK THEN REDUCED TO ONLY 1 TABLET A DAY. VENTOLIN HFA 2 PUFFS Q 6 HOURS P.R.N. (2) Anxiety and depression: Comment: SHE TENDS TO BECOME VERY ANXIOUS AND THEN SHE USES BRONCHODILATOR INHALER, VENTOLIN AND THAT MAY MAKE HER MORE ANXIOUS. Code(s): F41.9 - Anxiety disorder, unspecified; F32.A - Depression, unspecified Category: Medical Plan: REASSURED AND ADVISED TO CUT DOWN THE USE OF ALBUTEROL INHALER TO LITTLE POSSIBLE (3) Respiratory failure with hypoxia: Comment: PATIENT HAS ONGOING HYPOXEMIA, AND NEEDS O2 SUPPLEMENTATION 2 L/MINUTE 24 HOURS A DAY. HER O2 REQUIREMENT IS RELATIVELY STABLE AT THIS TIME. SHE DOES HAVE HISTORY OF HYPERCAPNIA IN THE PAST BUT NOT AT PRESENT. Code(s): J96.91 - Respiratory failure, unspecified with hypoxia Category: Medical Plan: .CONTINUE DEEP BREATHING EXERCISES .CONTINUE PULMONARY REHAB PROGRAM O2 2 L/MINUTE 24 HOURS A DAY Coding Level of Care Code Est Pt Level 3 (10099) Diagnoses COPD exacerbation J44.1 Anxiety and depression F41.9; F32.A Respiratory failure with hypoxia J96.91
== END 2024-11-29 09:11 | disposition home or self-care (01) ==
LOC: HO.HPS 08:27
PROVIDERS: PCP Internal Medicine; Visit Provider Internal Medicine
DX: J44.1 Chronic obstructive pulmonary disease with (acute) exacerbation (principal); F41.9 Anxiety disorder, unspecified; F32.A Depression, unspecified; J96.91 Respiratory failure, unspecified with hypoxia
CPT/HCPCS: 99213

== ENCOUNTER → 2024-11-29 08:27 | Outpatient (BNVA) | payer OTHER, SELFPAY | PROVIDERS: PCP Internal Medicine; Visit Provider Internal Medicine | DX: J44.1 Chronic obstructive pulmonary disease with (acute) exacerbation (principal); F41.9 Anxiety disorder, unspecified; F32.A Depression, unspecified; J96.91 Respiratory failure, unspecified with hypoxia | CPT/HCPCS: 99212 ==

== ENCOUNTER 2025-01-22 08:30 | Outpatient (AMB) | payer OTHER, SELFPAY ==
--- NOTE | 2025-01-22 08:53 | MHC.OFFVIS ---
Vital Signs 01/22/25 08:54 Height 5 ft 3 in Weight 170 lb 13.732 oz BMI 30.3 BP 124/64 Blood Pressure Location Lt brachial Position Sitting Pulse 89 Pulse Source Pulse Oximeter Pulse Oximetry (%) 93 Oxygen Delivery Method Nasal Cannula Oxygen Flow Rate 2 Intake Visit Reasons: COPD Intake Note: pt is here for follow up and states she is still wheezing, congested, using nebulizer and prednisone 5mg daily. Absorption And Adsorption Engineer Required: No Marketing Operations Coordinator: Marketing Operations Coordinator offered & declined Allergies duloxetine Allergy (Intermediate, Verified 01/22/25 09:03) upset stomach Medication List - Last Reconciled 01/22/25 by Leticia Ferrell MD albuterol sulfate 90 mcg/actuation 2 puffs PO Q4-6H PRN 30 days amlodipine 2.5 mg PO DAILY atorvastatin 10 mg PO BEDTIME budesonide INHALE 1 VIAL 2 TIMES A DAY FOR 30 DAYS buprenorphine-naloxone 8-2 mg 1 film sublingual BID cholecalciferol (vitamin D3) 1,250 mcg PO QWEEK citalopram 20 mg PO DAILY ferrous sulfate 325 mg PO DAILY 90 days fluticasone propion-salmeterol 250-50 mcg/dose (Wixela Inhub) 1 ea PO BID folic acid 1 mg PO DAILY furosemide 20 mg PO DAILY gabapentin 100 mg PO TID Incruse Ellipta 62.5 mcg/actuation (umeclidinium) 2 inhalations PO DAILY NS ipratropium-albuterol 0.5 mg-3 mg(2.5 mg base)/3 mL 3 mL inhalation Q4-6H PRN levothyroxine (Synthroid) 125 mcg PO DAILY metoprolol succinate ER 25 mg PO DAILY 90 days nicotine (polacrilex) 4 mg buccal Q2H PRN prednisone 5 mg PO BID 30 days quetiapine 100 mg PO BEDTIME thiamine HCl (vitamin B1) 100 mg (2 x 50 mg) PO DAILY HPI HPI COPD: Details: Melquiades IS 69 YEARS OLD WITH VERY ADVANCED CHRONIC OBSTRUCTIVE PULMONARY DISEASE. SHE IS FAIRLY STABLE BUT HER CONDITION REMAINS FOR AHI. SHE IS ON [facility] TREATMENT FOR HER COPD AND RESPIRATORY FAILURE. SHE HAS NO ACTIVE RESPIRATORY INFECTION BUT STILL FEELS SOMEWHAT CONGESTED IN THE LUNGS. SHE DID CUT DOWN PREDNISONE TO 5 MG A DAY AND SOON SHE LOWERED THE DOSE SHE STARTED FEELING MORE CONGESTED. SHE SLIPPED OFF HER BED AND STRAINED HER LEFT ANKLE/FOOT, AND IS NOW DEALING WITH THAT. SO SHE IS NOT GOING FOR PULMONARY REHAB SESSIONS . EACH TIME SHE COMES OVER HERE I HAVE TO GO OVER THE WHOLE LIST OF HER MEDICATIONS AND TRY TO STRAIGHTEN THAT OUT. [facility] Medical History Respiratory failure with hypoxia Anxiety and depression History of mammogram (~01/01/22) H/O bone density study (~11/16/22) Encounter for colorectal cancer screening using Cologuard test (~02/01/22) Scalp lesion Deafness in right ear COPD exacerbation Substance use disorder Acquired hypothyroidism Generalized anxiety disorder Hypoxemia COPD (chronic obstructive pulmonary disease) Hypoxemia COPD (chronic obstructive pulmonary disease) Surgical History Hx of surgical procedure (~10/06/23) History of hip replacement Family History Father No problems noted. Mother No problems noted. Other Mental health disorder Substance use disorder Social History Housing: House Alcohol intake: never Patient Tobacco Use Status: Former Tobacco user Tobacco use type: Cigarette e-Cigarette/Vaping Use: Never Used Second Hand Smoke Exposure: Yes service: No Current occupational status: retired Cognitive needs: No Hearing needs: Yes (hearing aides) Vision needs: Yes (Glasses) Review of Systems Const All systems reviewed & are unremarkable except as noted in HPI and below Eyes Reports no additional complaints ENT Reports no additional complaints Card Denies chest pain, Denies irregular heart rhythm and Denies leg edema Resp Reports as per HPI GI Reports no additional complaints Reports no additional complaints Musc Reports back pain (mild ) and Reports muscle weakness (General weakness) Skin/Breast Reports system reviewed and no additional complaints, except as documented Neuro Reports no additional complaints Psych Reports no additional complaints Endo Reports no additional complaints Physical Exam Const General: comfortable, no acute distress, alert and awake Orientation/consciousness: patient oriented x3 HEENT Head: Yes normal to inspection General nose exam: No nasal polyps present and No nasal discharge present Face and sinus: Yes sinuses nontender Mouth: oropharynx normal and no other (NO THRUSH NOTED) Throat: Yes posterior oropharynx normal Eyes General: appearance normal, both eyes and all related structures Neck Neck: Yes normal visual inspection, Yes no lymphadenopathy, Yes trachea midline and Yes no JVD Thyroid: Thyroid normal Chest Chest palpation & inspection: normal inspection of the chest, normal palpation of entire chest wall and no tenderness Resp Other: Percussion note hyper-resonant, breath sounds are distant with prolonged expiratory phase. Lungs are clear today and only a few wheezes are heard . Effort & Inspection: normal respiratory effort, prolonged expiratory phase and symmetric chest movement Cardio Palpation: normal PMI Rate: regular rate Rhythm: regular rhythm Heart sounds: no gallops and no murmurs GI Palpation (GI): Soft to palpation, nontender, No hepatosplenomegaly present and no masses Auscultation: normal bowel sounds Back/Spine/Pelvis Thoracic/Lumbar Spine: thoracic and lumbar spine normal to inspection and thoraco-lumbar ROM limited Skin General skin exam: no rashes or lesions noted Neuro General: patient oriented x3 and no focal motor deficits Cranial nerves: Yes CN's II-XII intact bilaterally Extrem Other: Left foot is moderately swollen due to recent strain but she moves all the toes and ankle normally. General: Yes normal to inspection, Yes no clubbing, cyanosis or edema and Yes no calf tenderness Psych Appearance: grossly normal and well kempt Speech and movement: Normal speech and movement present Assessment & Plan Assessment & Plan (1) COPD (chronic obstructive pulmonary disease): Comment: She has long-standing diagnosis of COPD. She has recovered from her recent acute exacerbation and is back to baseline. She is prone to have recurrent exacerbations due to any minor respiratory infection. She uses the rescue inhaler too frequently and finishes up before the refill date . She loves to go to rehab program, but due to ongoing low grade exacerbation currently she is not able to go. Code(s): J44.9 - Chronic obstructive pulmonary disease, unspecified Category: Medical Plan: I clarified the list of meds. Definitely there is some duplication especially when it comes to inhaled steroids, and budesonide in the nebulizer, but she needs it. Wixela 250-51 inhalation b.i.d. Incruse Ellipta. 1 inhalation daily Budesonide. 0.5 mg solution in nebulizer b.i.d. Ipratropium-albuterol solution in the nebulizer Q 6 hours p.r.n. but she uses about 3 times a day. Albuterol HFA 2 puffs Q 4-6 hours but try not use it frequently. Prednisone 5 mg daily (2) Respiratory failure with hypoxia: Comment: PATIENT HAS ONGOING HYPOXEMIA, AND NEEDS O2 SUPPLEMENTATION 2 L/MINUTE 24 HOURS A DAY. HER O2 REQUIREMENT IS RELATIVELY STABLE AT THIS TIME. SHE DOES HAVE HISTORY OF HYPERCAPNIA IN THE PAST BUT NOT AT PRESENT. Code(s): J96.91 - Respiratory failure, unspecified with hypoxia Category: Medical Plan: Continue to use oxygen 2 L/minute (3) Anxiety and depression: Comment: SHE TENDS TO BECOME VERY ANXIOUS AND THEN SHE USES BRONCHODILATOR INHALER, VENTOLIN AND THAT MAY MAKE HER MORE ANXIOUS. Code(s): F41.9 - Anxiety disorder, unspecified; F32.A - Depression, unspecified Category: Medical Plan: Try to educate her about the use of rescue inhaler, Use it only when outdoors and try not use it in less than 6 hours Coding Level of Care Code Est Pt Level 3 (93136) Diagnoses COPD (chronic obstructive pulmonary disease) J44.9 Respiratory failure with hypoxia J96.91 Anxiety and depression F41.9; F32.A
[2025-01-22 08:54] VITALS: BP 124/64; PULSE 89; O2SAT 93; BMI 30.3
== END 2025-01-22 09:14 | disposition home or self-care (01) ==
LOC: HO.HPS 08:30
PROVIDERS: PCP Internal Medicine; Visit Provider Internal Medicine
DX: J44.9 Chronic obstructive pulmonary disease, unspecified (principal); J96.91 Respiratory failure, unspecified with hypoxia; F41.9 Anxiety disorder, unspecified; F32.A Depression, unspecified
CPT/HCPCS: 99213

== ENCOUNTER → 2025-01-22 08:30 | Outpatient (BNVA) | payer OTHER, SELFPAY | PROVIDERS: PCP Internal Medicine; Visit Provider Internal Medicine | DX: J44.9 Chronic obstructive pulmonary disease, unspecified (principal); J96.91 Respiratory failure, unspecified with hypoxia; F41.9 Anxiety disorder, unspecified; F32.A Depression, unspecified | CPT/HCPCS: 99212 ==

== ENCOUNTER 2025-02-14 08:23 | Outpatient (AMB) | payer OTHER, SELFPAY ==
--- NOTE | 2025-02-14 08:39 | MHC.PC.OV ---
Vital Signs 02/14/25 08:40 Height 5 ft 3 in Weight 180 lb 4 oz BMI 31.9 BP 130/60 Blood Pressure Location Lt brachial Position Sitting Pulse 86 Pulse Source Pulse Oximeter Temp 97.5 F Temp Source Temporal Artery Scan Pulse Oximetry (%) 85 L Oxygen Delivery Method Nasal Cannula Intake Visit Reasons: 6 mnth f/u - see comments Intake Note: Patient is here to follow up on COPD, Hypothyroidism. 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 Accompanied by: Self / Same As Patient Allergies duloxetine Allergy (Intermediate, Verified 02/14/25 08:40) upset stomach Tobacco use date assessed: 02/14/25 Fall risk assessment: No Falls in past year Last assessed Fall Risk: 02/14/25 Dental Screening Dental Screen Date: 08/02/24 [facility] Medical History Respiratory failure with hypoxia Anxiety and depression History of mammogram (~01/01/22) H/O bone density study (~11/16/22) Encounter for colorectal cancer screening using Cologuard test (~02/01/22) Scalp lesion Deafness in right ear COPD exacerbation Substance use disorder Acquired hypothyroidism Generalized anxiety disorder Hypoxemia COPD (chronic obstructive pulmonary disease) Hypoxemia COPD (chronic obstructive pulmonary disease) Surgical History Hx of surgical procedure (~10/06/23) History of hip replacement Family History Father No problems noted. Mother No problems noted. Other Mental health disorder Substance use disorder Social History Housing: House Alcohol intake: never Patient Tobacco Use Status: Former Tobacco user Tobacco use type: Cigarette e-Cigarette/Vaping Use: Never Used Second Hand Smoke Exposure: Yes service: No Current occupational status: retired Cognitive needs: No Hearing needs: Yes (hearing aides) Vision needs: Yes (Glasses) Questionnaire PHQ-9 Over the last 2 weeks, how often have you been bothered by any of the following problems? 1. Little interest or pleasure in doing things: more than half the days 2. Feeling down, depressed, or hopeless: more than half the days 3. Trouble falling or staying asleep, or sleeping too much: more than half the days 4. Feeling tired or having little energy: more than half the days 5. Poor appetite or overeating: not at all 6. Feeling bad about yourself - or that you are a failure or have let yourself or your family down: more than half the days 7. Trouble concentrating on things, such as reading the newspaper or watching television: several days 8. Moving or speaking so slowly that other people could have noticed. Or the opposite - being so fidgety or restless that you have been moving around a lot more than usual: several days 9. Thoughts that you would be better off or of hurting yourself in some way: more than half the days Total score: 14 Depression Screening Interpretation: Positive Depression Screening Done: Yes Source: Developed by Drs. David García, Jennifer Crouch, Brendan Taylor and colleagues, with an educational corby from [employer]. Thrive Questionnaire Date Thrive assessed: 08/02/24 I am a: Patient What is your living situation today?: I have a steady place to live Within the past 12 months, did the food you bought not last and you didn't have the money to get more?: Never true Within the past 12 months, did you worry whether your food would run out before you got money to buy more?: Never true Do you have trouble paying for medicines?: No Do you have trouble getting transportation to medical appointments?: No Do you have trouble paying your heating and electricity bill?: No Do you have trouble taking care of your child, family member or friend?: No Do you have trouble with day-to-day activities such as bathing, preparing meals, shopping, managing finances, etc.?: No Are you currently unemployed and looking for a job?: No Are you interested in more education?: No Please select the resources that you would like help with: None Currently or been in a relationship where the following occur: No concerns reported THRIVE Score: 0 AUDIT C Alcohol Use Questionnaire (AUDIT-C) 1. How often do you have a drink containing alcohol?: Never Total Score: 0 ALLY-7 AMB Questionnaire ALLY-7 Date ALLY - 7 assessed: 02/14/25 Feeling nervous, anxious, or on edge: 1 = Several days Not being able to stop or control worryin = Several days Worrying too much about different things: 1 = Several days Trouble relaxin = Several days Being so restless that it is hard to sit still: 1 = Several days Becoming easily annoyed or irritable: 1 = Several days Feeling afraid as if something awful might happen: 1 = Several days Total ALLY-7 score (0-4 normal; 5-9 mild; 10-14 moderate; 15-21 severe): 7 Source: Developed by Drs. David García, Jennifer Crouch, Brendan Taylor and colleagues, with an educational corby from [employer]. Physical exam (Primary Care) Vital Signs: Last Vital Signs Temp 97.5 F 02/14/25 08:40 Pulse 86 02/14/25 08:40 BP 130/60 02/14/25 08:40 Pulse Ox 85 L 02/14/25 08:40 Oxygen Delivery Method Nasal Cannula 02/14/25 08:40 BMI result Body Mass Index 31.9 Tobacco/Smoking Status: Tobacco use Status Tobacco use date assessed 02/14/25 02/14/25 08:43 Patient Tobacco Use Status Former Tobacco user 02/14/25 08:43 Tobacco use type Cigarette 02/14/25 08:43 e-Cigarette/Vaping Use Never Used 02/14/25 08:43 PHQ-9: PHQ-9 Score PHQ-9: Total score 14 02/14/25 08:43 Depression Screening Interpretation: Positive Thrive Assessment: Date of Thrive Assessment Date Thrive assessed 08/02/24 02/14/25 08:43 Currently or been in a relationship where the following occur: No concerns reported Coding Level of Care Code Est Pt Level 4 (40397) Complex EM visit Add On G2211 Diagnoses Hypercholesteremia E78.00 Assessment & Plan Assessment & Plan (1) Hypercholesteremia: Code(s): E78.00 - Pure hypercholesterolemia, unspecified Category: Medical Plan: History of Present Illness - The patient is a 69-year-old female presenting with routine health maintenance and preventative care. - She is undergoing screening for diabetes mellitus, with blood work ordered to assess her status. - The patient is adherent to her medications, including amlodipine, statin, oxygen, citalopram, iron, and furosemide, with no reported issues. - She received an influenza vaccination but declined the COVID-19 vaccination due to a previous adverse reaction. - A small umbilical hernia was noted on examination, which is not currently symptomatic or requiring intervention. Social History - The patient drives herself to appointments but is uncertain about how long she will continue to do so. Review of Systems - General: Denies any new health concerns. - Respiratory: Reports breathing has been okay. - Gastrointestinal: Denies abdominal pain but reports noticing a bump, identified as a small umbilical hernia. Physical Exam General: Cooperative and healthy appearing Nutritional Appearance: Well nourished Orientation/consciousness: Patient oriented x3 Limitations: No limitations Head: Normal to inspection General: Appearance normal, both eyes and all related structures Neck: Normal visual inspection Chest: Normal palpation of entire chest wall Respiratory: Breathing's been okay. ormal respiratory effort Neurology: Patient oriented x3 Results Plan - Blood work and urine test ordered for diabetes mellitus screening, to be done fasting. - Influenza vaccination administered; COVID-19 vaccination declined due to previous adverse reaction. - Small umbilical hernia identified, currently not requiring surgical intervention. - Follow-up scheduled in six months for routine evaluation and to review test results. Discussion Notes I discussed with the patient the importance of diabetes screening and the need for fasting before the blood work. We also reviewed her vaccination status, and she expressed concerns about the COVID-19 vaccine due to a previous adverse reaction. I reassured her about the small umbilical hernia, explaining that it does not currently require surgical intervention. We agreed on a follow-up in six months to review her test results and overall health status. Patient Instructions - Complete fasting blood work and urine test for diabetes screening tomorrow morning. - Continue taking all prescribed medications as directed. - Monitor the umbilical hernia for any changes or symptoms. - Schedule a follow-up appointment in six months. Orders: Orders Hemoglobin A1c Today E78.00 - Pure hypercholesterolemia, unspecified Lipid Panel Today E78.00 - Pure hypercholesterolemia, unspecified Complete Blood Count no Diff Today E78.00 - Pure hypercholesterolemia, unspecified Basic Metabolic Panel Today E78.00 - Pure hypercholesterolemia, unspecified Liver Panel Today E78.00 - Pure hypercholesterolemia, unspecified Thyroid Stimulating Hormone Today E78.00 - Pure hypercholesterolemia, unspecified UA and rflx microscopic Today E78.00 - Pure hypercholesterolemia, unspecified Microalbumin, Random (w Creat) Today E78.00 - Pure hypercholesterolemia, unspecified
[2025-02-14 08:40] VITALS: BP 130/60; PULSE 86; TEMP 36.4; O2SAT 85; BMI 31.9
== END 2025-02-14 09:19 | disposition home or self-care (01) ==
LOC: HO.HMCH 08:24
PROVIDERS: PCP Internal Medicine; Visit Provider Internal Medicine
DX: E78.00 Pure hypercholesterolemia, unspecified (principal)

== ENCOUNTER → 2025-02-14 08:23 | Outpatient (BNVA) | payer OTHER, SELFPAY | PROVIDERS: PCP Internal Medicine; Visit Provider Internal Medicine | DX: E78.00 Pure hypercholesterolemia, unspecified (principal) | CPT/HCPCS: 96127; 99212 ==

== ENCOUNTER 2025-03-05 08:19 | Outpatient (AMB) | payer OTHER, SELFPAY ==
--- NOTE | 2025-03-05 08:45 | A.OFFVIS_ITS ---
Vital Signs 03/05/25 08:46 Height 5 ft 3 in Weight 169 lb 12.095 oz BMI 30.1 BP 130/68 Blood Pressure Location Lt brachial Position Sitting Pulse 79 Pulse Source Pulse Oximeter Pulse Oximetry (%) 84 L Oxygen Delivery Method Room Air Intake Visit Reasons: COPD Intake Note: pt is here for follow up and states she has not been feeling well, eyes puffy, sinus congested, chest congestion, coughing. Supervisor Shuttle Preparation Required: No Supervisor Tank Cleaning: Supervisor Tank Cleaning offered & declined Allergies duloxetine Allergy (Intermediate, Verified 03/05/25 08:50) upset stomach Medication List - Last Reconciled 03/05/25 by Leticia Ferrell MD albuterol sulfate 90 mcg/actuation 2 puffs PO Q4-6H PRN 30 days amlodipine 2.5 mg PO DAILY atorvastatin 10 mg PO BEDTIME budesonide INHALE 1 VIAL 2 TIMES A DAY FOR 30 DAYS buprenorphine-naloxone 8-2 mg 1 film sublingual BID cholecalciferol (vitamin D3) 1,250 mcg PO QWEEK citalopram 20 mg PO DAILY ferrous sulfate 325 mg PO DAILY 90 days fluticasone propion-salmeterol 250-50 mcg/dose (Wixela Inhub) 1 ea PO BID folic acid 1 mg PO DAILY furosemide 20 mg PO DAILY gabapentin 100 mg PO TID Incruse Ellipta 62.5 mcg/actuation (umeclidinium) 2 inhalations PO DAILY NS ipratropium-albuterol 0.5 mg-3 mg(2.5 mg base)/3 mL 3 mL inhalation Q4-6H PRN levothyroxine (Synthroid) 125 mcg PO DAILY metoprolol succinate ER 25 mg PO DAILY 90 days nicotine (polacrilex) 4 mg buccal Q2H PRN prednisone 5 mg PO BID 30 days quetiapine 100 mg PO BEDTIME thiamine HCl (vitamin B1) 100 mg (2 x 50 mg) PO DAILY Do you need a note to return to daycare/school/sports/work: No HPI HPI COPD: Details: This 69 years old female with advanced chronic obstructive pulmonary disease who is on maximum medical treatment, Still continues to have very frequent increase in her symptoms. She is on prednisone 5 mg every day and still complained that she does not take too much prednisone. This time she comes in with increased cough but this seems to be due to nasal congestion and postnasal discharge. She does have longstanding history of upper respiratory allergies with intermittent flare up. She has no fever chills or any mucopurulent expectoration. [facility] Medical History (Updated 03/05/25 @ 09:15 by Leticia Ferrell MD) Allergic rhinitis Respiratory failure with hypoxia Anxiety and depression History of mammogram (~01/01/22) H/O bone density study (~11/16/22) Encounter for colorectal cancer screening using Cologuard test (~02/01/22) Scalp lesion Deafness in right ear COPD exacerbation Substance use disorder Acquired hypothyroidism Generalized anxiety disorder Hypoxemia COPD (chronic obstructive pulmonary disease) Hypoxemia COPD (chronic obstructive pulmonary disease) Surgical History Hx of surgical procedure (~10/06/23) History of hip replacement Family History Father No problems noted. Mother No problems noted. Other Mental health disorder Substance use disorder Social History Housing: House Alcohol intake: never Patient Tobacco Use Status: Former Tobacco user Tobacco use type: Cigarette e-Cigarette/Vaping Use: Never Used Second Hand Smoke Exposure: Yes service: No Current occupational status: retired Cognitive needs: No Hearing needs: Yes (hearing aides) Vision needs: Yes (Glasses) Review of Systems Const All systems reviewed & are unremarkable except as noted in HPI and below Eyes Reports no additional complaints ENT Reports no additional complaints and Reports nasal congestion (She has history of intermittent flare up of nasal congestion/allergy) Card Denies chest pain, Denies irregular heart rhythm and Denies leg edema Resp Reports as per HPI GI Reports no additional complaints Reports no additional complaints Musc Reports back pain (mild ) and Reports muscle weakness (General weakness) Skin/Breast Reports system reviewed and no additional complaints, except as documented Neuro Reports no additional complaints Psych Reports no additional complaints Endo Reports no additional complaints Physical Exam Vital Signs: Last Vital Signs Pulse 79 03/05/25 08:46 BP 130/68 03/05/25 08:46 Pulse Ox 84 L 03/05/25 08:46 Oxygen Delivery Method Room Air 03/05/25 08:46 BMI result Body Mass Index 30.1 Const General: comfortable, no acute distress, alert and awake Orientation/consciousness: patient oriented x3 HEENT Head: Yes normal to inspection General nose exam: No nasal polyps present and nasal discharge present (There is bilateral nasal congestion and there is mild serous discharge) Face and sinus: Yes sinuses nontender Mouth: oropharynx normal and no other (NO THRUSH NOTED) Throat: Yes posterior oropharynx normal Eyes General: appearance normal, both eyes and all related structures Neck Neck: Yes normal visual inspection, Yes no lymphadenopathy, Yes trachea midline and Yes no JVD Thyroid: Thyroid normal Chest Chest palpation & inspection: normal inspection of the chest, normal palpation of entire chest wall and no tenderness Resp Other: Percussion note hyper-resonant, breath sounds are distant with prolonged expiratory phase. Lungs are clear today and only a few wheezes are heard . Effort & Inspection: normal respiratory effort, prolonged expiratory phase and symmetric chest movement Cardio Palpation: normal PMI Rate: regular rate Rhythm: regular rhythm Heart sounds: no gallops and no murmurs GI Palpation (GI): Soft to palpation, nontender, No hepatosplenomegaly present and no masses Auscultation: normal bowel sounds Back/Spine/Pelvis Thoracic/Lumbar Spine: thoracic and lumbar spine normal to inspection and thoraco-lumbar ROM limited Skin General skin exam: no rashes or lesions noted Neuro General: patient oriented x3 and no focal motor deficits Cranial nerves: Yes CN's II-XII intact bilaterally Extrem Other: Left foot is moderately swollen due to recent strain but she moves all the toes and ankle normally. General: Yes normal to inspection, Yes no clubbing, cyanosis or edema and Yes no calf tenderness Psych Appearance: grossly normal and well kempt Speech and movement: Normal speech and movement present Assessment & Plan Assessment & Plan (1) COPD (chronic obstructive pulmonary disease): Comment: She has long-standing diagnosis of COPD. She is prone to have recurrent exacerbations due to any minor respiratory infection. She uses the rescue inhaler too frequently and finishes up before the refill date . She loves to go to rehab program, but due to ongoing low grade exacerbation currently she is not able to go. Code(s): J44.9 - Chronic obstructive pulmonary disease, unspecified Category: Medical Plan: I discussed with her the whole list of meds. Told that she has to continue the present regimen I told her that she does not have to take extra doses of prednisone. Instead of taking prednisone 5 mg daily she should try 5 mg 2 tablets every other day. She is advised to take vitamin-D with calcium daily. I did advise her that there is no need to take any antibiotic . (2) Respiratory failure with hypoxia: Comment: PATIENT HAS ONGOING HYPOXEMIA, AND NEEDS O2 SUPPLEMENTATION 2 L/MINUTE 24 HOURS A DAY. HER O2 REQUIREMENT IS RELATIVELY STABLE AT THIS TIME. SHE DOES HAVE HISTORY OF HYPERCAPNIA IN THE PAST BUT NOT AT PRESENT. Code(s): J96.91 - Respiratory failure, unspecified with hypoxia Category: Medical Plan: Continue using O2 2 L/minute 24 hours a day, during the daytime she can take short breaks from the oxygen. (3) Anxiety and depression: Comment: SHE TENDS TO BECOME VERY ANXIOUS AND THEN SHE USES BRONCHODILATOR INHALER, VENTOLIN AND THAT MAY MAKE HER MORE ANXIOUS. Code(s): F41.9 - Anxiety disorder, unspecified; F32.A - Depression, unspecified Category: Medical Plan: Continue citalopram 20 mg daily (4) Allergic rhinitis: Comment: She has ongoing low-grade allergic rhinitis. It flares up due to any change in the season or climate. At present she comes in with increased nasal congestion, but there is no evidence of infection Code(s): J30.9 - Allergic rhinitis, unspecified Category: Medical Plan: I did explained to her about nasal allergy and aggravating her respiratory symptoms Advised that she can take loratadine 10 mg once a day p.r.n.. For nasal congestion She should have humidifier in the house, especially in the bedroom at nighttime. She can also take steam inhalations 2 or 3 times a day. Coding Level of Care Code Est Pt Level 3 (39274) Diagnoses COPD (chronic obstructive pulmonary disease) J44.9 Respiratory failure with hypoxia J96.91 Anxiety and depression F41.9; F32.A Allergic rhinitis J30.9
[2025-03-05 08:46] VITALS: BP 130/68; PULSE 79; O2SAT 84; BMI 30.1
== END 2025-03-05 09:15 | disposition home or self-care (01) ==
LOC: HO.HPS 08:20
PROVIDERS: PCP Internal Medicine; Visit Provider Internal Medicine
DX: J44.9 Chronic obstructive pulmonary disease, unspecified (principal); J96.91 Respiratory failure, unspecified with hypoxia; F41.9 Anxiety disorder, unspecified; F32.A Depression, unspecified; J30.9 Allergic rhinitis, unspecified
CPT/HCPCS: 99213

== ENCOUNTER → 2025-03-05 08:19 | Outpatient (BNVA) | payer OTHER, SELFPAY | PROVIDERS: PCP Internal Medicine; Visit Provider Internal Medicine | DX: J44.9 Chronic obstructive pulmonary disease, unspecified (principal); J96.91 Respiratory failure, unspecified with hypoxia; F41.9 Anxiety disorder, unspecified; F32.A Depression, unspecified; J30.9 Allergic rhinitis, unspecified | CPT/HCPCS: 99212 ==